=== PATIENT | male | born 1940 | race Caucasian/White ===

== ENCOUNTER 2018-07-24 21:30 | Emergency (ER) | payer MEDICARE, OTHER ==
--- NOTE | 2018-07-24 23:07 | ER Document Report ---
ED Medical Screen (RME) - General Chief Complaint: High Blood Sugar Stated Complaint: BLOOD SUGAR ISSUE Time Seen by Provider: 07/24/18 23:04 Mode of Arrival: Ambulatory Information source: Patient Notes: 77-year-old male presents to ED for elevated blood sugar. He is here with a friend that he is living with at this time. He is a diabetic but has been off of his medicines for years. She states she just got into the doctor about 2 weeks ago to getting back on his blood pressure sure diabetes and other medications. And said his sugars been running in the 600s at home his blood sugar was in the 300s in the emergency room Accu-Chek. Friend stated he eats pretty much what they cook and what he wants. Patient is alert and oriented respirations regular and unlabored speaking in full sentences lungs are clear at this time. I have greeted and performed a rapid initial assessment of this patient. A comprehensive ED assessment and evaluation of the patient, analysis of test results and completion of medical decision making process will be conducted by an additional ED providers. TRAVEL OUTSIDE OF THE [place] IN LAST 30 DAYS: No Past Medical History Endocrine Medical History: Reports: Hx Diabetes Mellitus Type 2 Renal/ Medical History: Denies: Hx Peritoneal Dialysis Physical Exam - Vital signs Vitals: Temp Pulse Resp BP Pulse Ox 97.3 F 73 18 123/54 L 95 07/24/18 21:39 07/24/18 21:39 07/24/18 21:39 07/24/18 21:39 07/24/18 21:39 Course - Vital Signs Vital signs: Temp Pulse Resp BP Pulse Ox 97.3 F 73 18 123/54 L 95 07/24/18 21:39 07/24/18 21:39 07/24/18 21:39 07/24/18 21:39 07/24/18 21:39 Doctor's Discharge - Discharge Referrals: LOYD ROSALES MD [Primary Care Provider] - Follow up as needed
[2018-07-24 23:59] LABS: ABSOLUTE BASOPHILS # (AUTO) 0.1 10^3/uL (0.0-0.2); ABSOLUTE EOSINOPHILS # (AUTO) 0.2 10^3/uL (0.0-0.6); ABSOLUTE LYMPHOCYTES (AUTO) 1.5 10^3/uL (0.5-4.7); ABSOLUTE MONOCYTES (AUTO) 0.6 10^3/uL (0.1-1.4); BASOPHILS % (AUTO) 0.6 % (0-2); EOSINOPHILS % (AUTO) 1.8 % (0-6); HEMATOCRIT 34.2 % (37.9-51.0); HEMOGLOBIN 11.8 g/dL (13.5-17.0); LYMPHOCYTES % (AUTO) 17.6 % (13-45); MEAN CORPUSCULAR HEMOGLOBIN 30.3 pg (27.0-33.4); MEAN CORPUSCULAR HGB CONC 34.6 g/dL (32.0-36.0); MEAN CORPUSCULAR VOLUME 88 fl (80-97); PLATELET COUNT 326 10^3/uL (150-450); RED CELL DISTRIBUTION WIDTH 13.4 % (11.5-14.0); TOTAL CELLS COUNTED % (AUTO) 100 %; WHITE BLOOD COUNT 8.3 10^3/uL (4.0-10.5)
[2018-07-25 00:06] LABS: VENOUS BLOOD BASE EXCESS 1.5 mmol/L; VENOUS BLOOD PCO2 54.4 mmHg (35-63); VENOUS BLOOD PH 7.35 (7.30-7.42)
[2018-07-25 00:15] LABS: APPEARANCE,URINE CLEAR; BILIRUBIN,URINE NEGATIVE (NEGATIVE); COLOR,URINE STRAW; GLUCOSE, URINE >=500 mg/dL (NEGATIVE); KETONES,URINE NEGATIVE (NEGATIVE); LEUKOCYTE ESTERASE,URINE NEGATIVE (NEGATIVE); NITRITE,URINE NEGATIVE (NEGATIVE); PROTEIN,URINE NEGATIVE (NEGATIVE); URINE SPECIFIC GRAVITY 1.005
[2018-07-25 00:18] LABS: ALANINE AMINOTRANSFERASE 25 U/L (21-72); ALKALINE PHOSPHATASE 79 U/L (38-126); ANION GAP 13 (5-19); ASPARTATE AMINO TRANSFERASE 28 U/L (17-59); BILIRUBIN,DIRECT 0.4 mg/dL (0.0-0.4); BILIRUBIN,TOTAL 0.6 mg/dL (0.2-1.3); BLOOD UREA NITROGEN 22 mg/dL (7-20); CALCIUM 9.3 mg/dL (8.4-10.2); CARBON DIOXIDE 28 mmol/L (22-30); CHLORIDE 98 mmol/L (98-107); GLUCOSE 260 mg/dL (75-110); POTASSIUM 4.6 mmol/L (3.6-5.0); SODIUM 139.3 mmol/L (137-145); TOTAL PROTEIN 7.4 g/dL (6.3-8.2)
[2018-07-25] MEDS ORDERED: NORMAL SALINE 1000 ML 500 ML IV ONE (00:53)
--- NOTE | 2018-07-25 00:59 | ER Document Report ---
ED Blood Sugar Problem - General Chief Complaint: High Blood Sugar Stated Complaint: BLOOD SUGAR ISSUE Time Seen by Provider: 07/24/18 23:04 Mode of Arrival: Ambulatory Notes: Patient is a 77-year-old male that comes emergency department for chief complaint of elevated blood sugar levels. He is here with his girlfriend. He states that he was diagnosed with diabetes, he has not been on diabetic medications since he got out of assisted 3 years ago, he states that he was seen within the past week by a primary care provider and he was placed on glipizide 5 mg daily. He has been taking this. He states that his girlfriend has been checking his sugars and today after eating a meal and a sugary dessert his blood glucose read 600s. He denies nausea or vomiting, dizziness, confusion, fever or chills. He denies chest pain, abdominal pain, or any current symptoms. Past medical history includes CAD, GERD, hypertension. He is on full medication regimen now with primary care. TRAVEL OUTSIDE OF THE [place] IN LAST 30 DAYS: No - Related Data Allergies/Adverse Reactions: No Known Allergies Allergy (Unverified 07/24/18 23:35) Past Medical History - General Information source: Patient - Social History Smoking Status: Never Smoker Frequency of alcohol use: None Drug Abuse: None Lives with: Alone Family History: Reviewed & Not Pertinent Patient has suicidal ideation: No Patient has homicidal ideation: No - Past Medical History Cardiac Medical History: Reports: Hx Coronary Artery Disease, Hx Hypercholesterolemia, Hx Hypertension Endocrine Medical History: Reports: Hx Diabetes Mellitus Type 2 Renal/ Medical History: Denies: Hx Peritoneal Dialysis GI Medical History: Reports: Hx Gastroesophageal Reflux Disease - Immunizations Immunizations up to date: Yes Hx Diphtheria, Pertussis, Tetanus Vaccination: Yes Review of Systems - Review of Systems Constitutional: No symptoms reported EENT: No symptoms reported Cardiovascular: No symptoms reported Respiratory: No symptoms reported Gastrointestinal: No symptoms reported Genitourinary: No symptoms reported Male Genitourinary: No symptoms reported Musculoskeletal: No symptoms reported Skin: No symptoms reported Hematologic/Lymphatic: No symptoms reported Neurological/Psychological: No symptoms reported Physical Exam - Vital signs Vitals: Temp Pulse Resp BP Pulse Ox 97.3 F 73 18 123/54 L 95 07/24/18 21:39 07/24/18 21:39 07/24/18 21:39 07/24/18 21:39 07/24/18 21:39 - Notes Notes: GENERAL: Alert, interacts well. No acute distress. HEAD: Normocephalic, atraumatic. EYES: Pupils equal, round, and reactive to light. Extraocular movements intact. ENT: Oral mucosa moist, tongue midline. Oropharynx unremarkable. Airway patent. Nares patent, no nasal septal hematoma, TM's intact. NECK: Full range of motion. Supple. Trachea midline. LUNGS: Clear to auscultation bilaterally, no wheezes, rales, or rhonchi. No respiratory distress. HEART: Regular rate and rhythm. No murmur ABDOMEN: Soft, non-tender. Non-distended. Bowel sounds present in all 4 quadrants. GENITOURINARY: Deferred EXTREMITIES: Moves all 4 extremities spontaneously. No edema, normal radial and dorsalis pedis pulses bilaterally. No cyanosis. BACK: no cervical, thoracic, lumbar midline tenderness. No saddle anesthesia, normal distal neurovascular exam. NEUROLOGICAL: Alert and oriented x3. Normal speech. [cranial nerves II through XII grossly intact]. PSYCH: Normal affect, normal mood. SKIN: Warm, dry, normal turgor. No rashes or lesions noted. Course - Re-evaluation Re-evalutation: CBC unremarkable, chemistry does not show low bicarbonate, shows normal anion gap, venous blood gas does not show acidosis, no ketones in the urine. Patient had been given 500 cc bolus of fluids. Glucose is only in the 200s. Patient with no symptoms on my evaluation. He is alert and well-appearing with a normal physical exam. I did review glucose trends from home, taking it once or twice a day for the past several days, most of the glucose measurements are in the 150s. He spiked into the 600s after eating sugary desserts but this came down nicely. This was the only abnormally high blood glucose record. As a result I feel he has fairly good control, he was only recently started on this, discussed diet, discussed follow-up. Patient will be discharged for follow-up. He declines cyanide case hardener consult, states he has a good situation and good friends with good support. Stable at time of discharge. - Vital Signs Vital signs: Temp Pulse Resp BP Pulse Ox 98.9 F 74 18 139/64 H 98 07/25/18 02:56 07/25/18 02:56 07/25/18 02:56 07/25/18 02:56 07/25/18 02:56 - Laboratory Result Diagrams: 07/24/18 23:47 07/24/18 23:47 Laboratory results interpreted by me: 07/24/18 07/24/18 07/24/18 22:58 23:47 23:47 RBC 3.90 L Hgb 11.8 L Hct 34.2 L BUN 22 H Creatinine 1.28 H Est GFR (Non-Af Amer) 55 L Glucose 260 H POC Glucose 304 H Urine Glucose (UA) Urine Urobilinogen 07/24/18 23:53 RBC Hgb Hct BUN Creatinine Est GFR (Non-Af Amer) Glucose POC Glucose Urine Glucose (UA) >=500 H Urine Urobilinogen 2.0 H Discharge - Discharge Clinical Impression: Hyperglycemia due to type 2 diabetes mellitus Qualifiers: Diabetes mellitus [facility] insulin use: with [facility] use Qualified Code(s): E11.65 - Type 2 diabetes mellitus with hyperglycemia Condition: Stable Disposition: HOME, SELF-CARE Additional Instructions: You have been evaluated and treated for elevated blood sugar levels. Fortunately today your laboratory workup does not show concerning acidosis or other concerning abnormalities. I recommend that you stay on your current dose of glipizide and avoid carbohydrates/sugary foods. Follow-up with your primary care provider. Return if you worsen including vomiting, dizziness, persistently high blood sugar levels, or any other concerning or worsening symptoms. Referrals: LOYD ROSALES MD [ACTIVE STAFF] - Follow up as needed
[2018-07-25 03:03] VITALS: BP 139/64
== END 2018-07-25 03:03 | disposition home or self-care (01) ==
LOC: ER 21:30
DX: E11.65 Type 2 diabetes mellitus with hyperglycemia (principal); I25.10 Atherosclerotic heart disease of native coronary artery without angina pectoris; E78.00 Pure hypercholesterolemia, unspecified; I10 Essential (primary) hypertension; Z79.84 Long term (current) use of oral hypoglycemic drugs
CPT/HCPCS: 99283; 96360; 36415; 82962; 85025; 80053; 81001; 82803; J7030

== ENCOUNTER 2018-08-09 11:14 | Observation (INO) | payer MEDICARE ==
[2018-08-09 11:34] LABS: ABSOLUTE BASOPHILS # (AUTO) 0.1 10^3/uL (0.0-0.2); ABSOLUTE EOSINOPHILS # (AUTO) 0.2 10^3/uL (0.0-0.6); ABSOLUTE LYMPHOCYTES (AUTO) 1.3 10^3/uL (0.5-4.7); ABSOLUTE MONOCYTES (AUTO) 0.6 10^3/uL (0.1-1.4); ABSOLUTE NEUT (AUTO) 6.2 10^3/uL (1.7-8.2); BASOPHILS % (AUTO) 0.6 % (0-2); EOSINOPHILS % (AUTO) 2.7 % (0-6); HEMATOCRIT 37.9 % (37.9-51.0); HEMOGLOBIN 13.1 g/dL (13.5-17.0); LYMPHOCYTES % (AUTO) 15.7 % (13-45); MEAN CORPUSCULAR HEMOGLOBIN 30.4 pg (27.0-33.4); MEAN CORPUSCULAR HGB CONC 34.5 g/dL (32.0-36.0); MEAN CORPUSCULAR VOLUME 88 fl (80-97); PLATELET COUNT 279 10^3/uL (150-450); RED CELL DISTRIBUTION WIDTH 14.4 % (11.5-14.0); TOTAL CELLS COUNTED % (AUTO) 100 %; WHITE BLOOD COUNT 8.3 10^3/uL (4.0-10.5)
--- NOTE | 2018-08-09 11:48 | ER Document Report ---
ED Syncope and Near Syncope - General Stated Complaint: WEAKNESS Time Seen by Provider: 08/09/18 11:42 Notes: Patient says that he was at the laundry washing close. He was sitting waiting for the close to dry and he began to feel sick to his stomach, nauseated but not vomiting he eased himself to the floor but did not lose consciousness at any time. He says he is a sja-qqxukcn-whifnhfma diabetic on glipizide and did not eat anything today. He was in a hurry and try to get too many things done and did not eat this morning. EMS was called to the scene and found him eating a sticky bun. Their blood sugar at the scene was 143. Patient says he had something like this happen once before about 3 or 4 years ago and he had abnormal potassium does not recall ever experiencing a hypoglycemic episode. Patient was incontinent of urine. There is no reported seizure activity. Patient denies any recent illness. Has not had any fever or chills or sweats. Denies abdominal pain. Denies chest pain. Denies shortness of breath. Patient had a routine visit with his internal medicine doctor, Dr. Karyn Mayfield , on Monday. Patient says he did not have any medications added or adjusted. PMH: NIDDM, coronary artery stents, high cholesterol, TRAVEL OUTSIDE OF THE [place] IN LAST 30 DAYS: No - Related Data Allergies/Adverse Reactions: No Known Allergies Allergy (Unverified 07/24/18 23:35) Past Medical History - Social History Smoking Status: Unknown if Ever Smoked Family History: Reviewed & Not Pertinent - Past Medical History Cardiac Medical History: Reports: Hx Coronary Artery Disease, Hx Hypercholesterolemia, Hx Hypertension Endocrine Medical History: Reports: Hx Diabetes Mellitus Type 2 GI Medical History: Reports: Hx Gastroesophageal Reflux Disease - Immunizations Immunizations up to date: Yes Hx Diphtheria, Pertussis, Tetanus Vaccination: Yes Review of Systems - Review of Systems Notes: REVIEW OF SYSTEMS: CONSTITUTIONAL : Denies fever. EENT: Denies eye, ear, nose or mouth or throat pain or other symptoms. CARDIOVASCULAR: Denies chest pain. RESPIRATORY: Denies cough, chest congestion, or shortness of breath. GASTROINTESTINAL: Denies abdominal pain or nausea, vomiting, or diarrhea. GENITOURINARY: Denies difficulty or painful urinating, urinary frequency, blood in urine. Incontinent of urine at the scene. MUSCULOSKELETAL: Denies back or neck pain. Denies joint pain or swelling. SKIN: Denies rash or skin lesions. NEUROLOGICAL: Denies LOC or altered mental status. Denies headache. Denies sensory loss or motor deficits. ALL OTHER SYSTEMS REVIEWED AND NEGATIVE. Physical Exam - Vital signs Vitals: Resp Pulse Ox 8 L 98 08/09/18 11:28 08/09/18 11:28 Interpretation: Normal, Bradycardic Notes: PHYSICAL EXAMINATION: GENERAL: Well-appearing, in no acute distress. Pressure slightly low heart rate in the 40s. HEAD: Atraumatic, normocephalic. EYES: Pupils equal round and reactive to light, extraocular movements intact. ENT: oropharynx clear without exudates. Moist mucous membranes. NECK: Normal range of motion, supple. No carotid bruits heard. LUNGS: Breath sounds clear and equal bilaterally. HEART: Regular rate and rhythm without murmurs. Heart rate mid 40s. ABDOMEN: Soft, nontender. No guarding or rebound. No masses. Good femoral pulses bilaterally. BACK: No tenderness throughout entire back. EXTREMITIES: Normal range of motion without pain. NEUROLOGICAL: Normal speech. Normal sensory, motor, and reflex exams. Awake, alert, and oriented x3. Cranial nerves normal. PSYCH: Normal mood, normal affect. SKIN: Warm, dry, no rashes. Course - Re-evaluation Re-evalutation: 08/09/18 13:35 Patient was given normal saline 1000 mL because of his slightly low blood pressure. His blood pressure came up to normal. His heart rate remained in the mid 40s, sinus mechanism. Patient is feeling somewhat better at this time. I spoken with the hospitalist who will admit the patient for further evaluation and observation. - Vital Signs Vital signs: Temp Pulse Resp BP Pulse Ox 11 L 109/49 L 97 08/09/18 12:01 08/09/18 12:01 08/09/18 12:01 - Laboratory Result Diagrams: 08/09/18 11:10 08/09/18 11:10 Laboratory results interpreted by me: 08/09/18 08/09/18 08/09/18 11:10 11:10 11:30 RBC 4.30 L Hgb 13.1 L RDW 14.4 H Glucose 178 H POC Glucose 181 H Critical Care Note - Critical Care Note Total time excluding time spent on procedures (mins): 40 Discharge - Discharge Clinical Impression: Near syncope, Sinus bradycardia, Urinary incontinence Disposition: ADMITTED OBSERVATION Admitting Provider: Hospitalist Unit Admitted: IMCU Referrals: KARYN MAYFIELD MD [Primary Care Provider] - Follow up as needed
[2018-08-09] MEDS ORDERED: NORMAL SALINE 1000 ML 1,000 ML IV ONE (11:51)
[2018-08-09 11:52] LABS: ALANINE AMINOTRANSFERASE 25 U/L (21-72); ALBUMIN 3.8 g/dL (3.5-5.0); ALKALINE PHOSPHATASE 84 U/L (38-126); ANION GAP 11 (5-19); ASPARTATE AMINO TRANSFERASE 28 U/L (17-59); BILIRUBIN,DIRECT 0.3 mg/dL (0.0-0.4); BLOOD UREA NITROGEN 19 mg/dL (7-20); CALCIUM 9.7 mg/dL (8.4-10.2); CARBON DIOXIDE 26 mmol/L (22-30); CHLORIDE 104 mmol/L (98-107); CREATINE KINASE 61 U/L (55-170); GLUCOSE 178 mg/dL (75-110); POTASSIUM 4.5 mmol/L (3.6-5.0); SODIUM 140.6 mmol/L (137-145); TOTAL PROTEIN 6.7 g/dL (6.3-8.2)
[2018-08-09 12:06] LABS: CREATINE KINASE MB 0.78 ng/mL (<4.55)
[2018-08-09 12:10] LABS: TROPONIN I < 0.012 ng/mL
[2018-08-09 12:15] LABS: APPEARANCE,URINE CLEAR; BILIRUBIN,URINE NEGATIVE (NEGATIVE); COLOR,URINE YELLOW; GLUCOSE, URINE NEGATIVE (NEGATIVE); KETONES,URINE NEGATIVE (NEGATIVE); LEUKOCYTE ESTERASE,URINE NEGATIVE (NEGATIVE); NITRITE,URINE NEGATIVE (NEGATIVE); PROTEIN,URINE NEGATIVE (NEGATIVE); UROBILINOGEN,URINE NEGATIVE mg/dL (<2.0)
--- NOTE | 2018-08-09 12:37 | RADIOLOGY REPORT (SQ) ---
EXAM DESCRIPTION: CT HEAD WITHOUT COMPLETED DATE/TIME: 08/09/2018 12:21 pm REASON FOR STUDY: Near syncope COMPARISON: None. TECHNIQUE: Axial images acquired through the brain without intravenous contrast. Images reviewed wi th bone, brain and subdural windows. Images stored on PACS. All CT scanners at this facility use dose modulation, iterative reconstruction, and/or weight based d osing when appropriate to reduce radiation dose to as low as reasonably achievable (ALARA). [facility]: Dose Right [facility]: CareDose [facility]: Dose Right [facility]: Teradose 4D [facility]: Measurabl RADIATION DOSE: CT Rad equipment meets quality standard of care and radiation dose reduction techniq ues were employed. CTDIvol: 48.5 mGy. DLP: 924 mGy-cm. mGy. LIMITATIONS: None. FINDINGS: VENTRICLES: Prominent. CEREBRUM: No masses. No hemorrhage. No midline shift. Areas of low density in the white matter mos t likely due to chronic micro-vascular ischemic change. No evidence for acute infarction. CEREBELLUM: No masses. No hemorrhage. No alteration of density. No evidence for acute infarction. EXTRAAXIAL SPACES: Mild age-related involutional change. No fluid collections. No masses. ORBITS AND GLOBE: No intra- or extraconal masses. Normal contour of globe without masses. CALVARIUM: No fracture. PARANASAL SINUSES: No fluid or mucosal thickening. SOFT TISSUES: No mass or hematoma. OTHER: No other significant finding. IMPRESSION: MILD CHRONIC CHANGES OF ATROPHY AND MICROVASCULAR ISCHEMIA. NO ACUTE PROCESS. EVIDENCE OF ACUTE STROKE: NO. TECHNICAL DOCUMENTATION: JOB ID: [id number] Quality ID # [id number]: Final reports with documentation of one or more dose reduction techniques (e.g., Au tomated exposure control, adjustment of the mA and/or kV according to patient size, use of iterative reconstruction technique) 2010 [employer]- All Rights Reserved Reading location - IP/workstation name: [email or web address]
[2018-08-09] MEDS ORDERED: ACETAMINOPHEN 325 MG TABLET PO PRN (13:43)
[2018-08-09] MEDS ORDERED: DEXTROSE 50%-WATER 25 GM/50 ML DISP.SYRIN IV PRN ×2 (13:50)
[2018-08-09] MEDS ORDERED: DEXTROSE 40% GEL 15 GM TUBE PO PRN ×2 (13:50)
[2018-08-09] MEDS ORDERED: GLUCAGON,HUMAN RECOMB 1 MG INJ IM PRN (13:50)
[2018-08-09] MEDS ORDERED: ENOXAPARIN SODIUM INJ 40 MG/0.4 ML DISP.SYRIN SUBCUT ONE (15:00)
[2018-08-09] MEDS: INSULIN LISPRO 100 UNIT/ML 3 ML VIAL SUBCUT PRN ×2 (16:57→22:52)
--- NOTE | 2018-08-09 16:57 | PDOC H&P ---
History of Present Illness Admission Date/PCP: 08/09/18 14:00 KARYN LEIJA MD Patient complains of: "I feel like I passed out" History of Present Illness: AKILAH GODFREY is a 77 year old male with a past medical history of coronary artery disease and diabetes mellitus type II. According to the patient , he was at the laundry washing clothes. While waiting for the close to dry he began to feel sick to his stomach, nauseated but not vomiting and eased himself to the floor but did not lose consciousness at any time. The patient says he is a amh-xfbwvgf-mzpyiecod diabetic on glipizide and had not eat anything today. The patient was in a hurry and tried to get too many things done and did not eat this morning. EMS was called to the scene and found him eating a sticky bun. Their blood sugar at the scene was 143. Patient says he had something like this happen once before about 3 or 4 years ago and he had abnormal potassium does not recall ever experiencing a hypoglycemic episode. Patient was incontinent of urine. There is no reported seizure activity. Patient denies any recent illness. Has not had any fever or chills or sweats. Denies abdominal pain. Denies chest pain. Denies shortness of breath. Patient had a routine visit with his internal medicine doctor, Dr. Karyn Leija , on Monday. Patient says he did not have any medications added or adjusted. 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 Lives with: Spouse/Significant other Smoking Status: Former Smoker - Stopped in 1976 Frequency of Alcohol Use: None Hx Recreational Drug Use: No Hx Prescription Drug Abuse: No - Advance Directive Resuscitation Status: Full Code Surrogate healthcare decision maker:: Daughter Family History Family History: CAD, Malignancy Parental Family History Reviewed: Yes - Mother of coronary disease, father of alcoholism Children Family History Reviewed: Yes Sibling(s) Family History Reviewed.: Yes - Sister with bladder cancer Medication/Allergy Home Medications: Aspirin [Adult Aspirin] 81 mg PO DAILY 08/09/18 Carvedilol [Coreg 6.25 mg Tablet] 6.25 mg PO Q12 08/09/18 Furosemide [Lasix 20 mg Tablet] 20 mg PO QAM 08/09/18 Glipizide [Glucotrol Xl 5 mg Tab.er] 5 mg PO QAM 08/09/18 Isosorbide Mononitrate [Imdur 30 mg Tablet.er] 30 mg PO DAILY 08/09/18 Multivitamin [Daily Multiple Vitamin] 1 each PO DAILY 08/09/18 Omeprazole 20 mg PO DAILY 08/09/18 Pravastatin Sodium [Pravachol] 20 mg PO QHS 08/09/18 Allergies/Adverse Reactions: No Known Allergies Allergy (Unverified 07/24/18 23:35) Review of Systems Constitutional: PRESENT: weakness. ABSENT: chills, fever(s), headache(s), weight gain, weight loss Eyes: ABSENT: visual disturbances Ears: ABSENT: hearing changes Cardiovascular: ABSENT: chest pain, dyspnea on exertion, edema, orthropnea, palpitations Respiratory: ABSENT: cough, hemoptysis Gastrointestinal: ABSENT: abdominal pain, constipation, diarrhea, hematemesis, hematochezia, nausea, vomiting Genitourinary: ABSENT: dysuria, hematuria Musculoskeletal: ABSENT: joint swelling Integumentary: ABSENT: rash, wounds Neurological: ABSENT: abnormal gait, abnormal speech, confusion, dizziness, focal weakness, syncope Psychiatric: ABSENT: anxiety, depression, homidical ideation, suicidal ideation Endocrine: ABSENT: cold intolerance, heat intolerance, polydipsia, polyuria Hematologic/Lymphatic: ABSENT: easy bleeding, easy bruising Physical Exam Vital Signs: Temp Pulse Resp BP Pulse Ox 11 L 109/49 L 97 08/09/18 12:01 08/09/18 12:01 08/09/18 12:01 Selected Entries 08/09/18 12:01 Heart Rate ( 48 Monitors) Respiratory 11 L Rate Blood Pressure 109/49 L O2 Sat by Pulse 97 Oximetry General appearance: PRESENT: no acute distress, well-developed, well-nourished Head exam: PRESENT: atraumatic, normocephalic Eye exam: PRESENT: conjunctiva pink, EOMI, PERRLA. ABSENT: scleral icterus Ear exam: PRESENT: normal external ear exam Mouth exam: PRESENT: moist, tongue midline Neck exam: ABSENT: carotid bruit, JVD, lymphadenopathy, thyromegaly Respiratory exam: PRESENT: clear to auscultation darian. ABSENT: rales, rhonchi, wheezes Cardiovascular exam: PRESENT: bradycardia. ABSENT: diastolic murmur, rubs, systolic murmur Pulses: PRESENT: normal dorsalis pedis pul Vascular exam: PRESENT: normal capillary refill GI/Abdominal exam: PRESENT: normal bowel sounds, soft. ABSENT: distended, guarding, mass, organolmegaly, rebound, tenderness Rectal exam: PRESENT: deferred Extremities exam: PRESENT: full ROM. ABSENT: calf tenderness, clubbing, pedal edema Neurological exam: PRESENT: alert, awake, oriented to person, oriented to place , oriented to time, oriented to situation, CN II-XII grossly intact. ABSENT: motor sensory deficit Psychiatric exam: PRESENT: appropriate affect, normal mood. ABSENT: homicidal ideation, suicidal ideation Skin exam: PRESENT: dry, intact, warm. ABSENT: cyanosis, rash Results Laboratory Results: Labs- Last Values WBC 8.3 10^3/uL (4.0-10.5) 08/09/18 11:10 RBC 4.30 10^6/uL (4.35-5.55) L 08/09/18 11:10 Hgb 13.1 g/dL (13.5-17.0) L 08/09/18 11:10 Hct 37.9 % (37.9-51.0) 08/09/18 11:10 MCV 88 fl (80-97) 08/09/18 11:10 MCH 30.4 pg (27.0-33.4) 08/09/18 11:10 MCHC 34.5 g/dL (32.0-36.0) 08/09/18 11:10 RDW 14.4 % (11.5-14.0) H 08/09/18 11:10 Plt Count 279 10^3/uL (150-450) 08/09/18 11:10 Seg Neutrophils % 74.0 % (42-78) 08/09/18 11:10 Lymphocytes % 15.7 % (13-45) 08/09/18 11:10 Monocytes % 7.0 % (3-13) 08/09/18 11:10 Eosinophils % 2.7 % (0-6) 08/09/18 11:10 Basophils % 0.6 % (0-2) 08/09/18 11:10 Absolute Neutrophils 6.2 10^3/uL (1.7-8.2) 08/09/18 11:10 Absolute Lymphocytes 1.3 10^3/uL (0.5-4.7) 08/09/18 11:10 Absolute Monocytes 0.6 10^3/uL (0.1-1.4) 08/09/18 11:10 Absolute Eosinophils 0.2 10^3/uL (0.0-0.6) 08/09/18 11:10 Absolute Basophils 0.1 10^3/uL (0.0-0.2) 08/09/18 11:10 Sodium 140.6 mmol/L (137-145) 08/09/18 11:10 Potassium 4.5 mmol/L (3.6-5.0) 08/09/18 11:10 Chloride 104 mmol/L (98-107) 08/09/18 11:10 Carbon Dioxide 26 mmol/L (22-30) 08/09/18 11:10 Anion Gap 11 (5-19) 08/09/18 11:10 BUN 19 mg/dL (7-20) 08/09/18 11:10 Creatinine 0.98 mg/dL (0.52-1.25) 08/09/18 11:10 Est GFR ( Amer) > 60 (>60) 08/09/18 11:10 Est GFR (Non-Af Amer) > 60 (>60) 08/09/18 11:10 Glucose 178 mg/dL (75-110) H 08/09/18 11:10 POC Glucose 181 mg/dL (70-110) H 08/09/18 11:30 Calcium 9.7 mg/dL (8.4-10.2) 08/09/18 11:10 Total Bilirubin 1.0 mg/dL (0.2-1.3) 08/09/18 11:10 Direct Bilirubin 0.3 mg/dL (0.0-0.4) 08/09/18 11:10 Neonat Total Bilirubin Not Reportable 08/09/18 11:10 Neonat Direct Bilirubin Not Reportable 08/09/18 11:10 Neonat Indirect Bili Not Reportable 08/09/18 11:10 AST 28 U/L (17-59) 08/09/18 11:10 ALT 25 U/L (21-72) 08/09/18 11:10 Alkaline Phosphatase 84 U/L (38-126) 08/09/18 11:10 Creatine Kinase 61 U/L (55-170) 08/09/18 11:10 CK-MB (CK-2) 0.78 ng/mL (<4.55) 08/09/18 11:10 Troponin I < 0.012 ng/mL 08/09/18 11:10 Total Protein 6.7 g/dL (6.3-8.2) 08/09/18 11:10 Albumin 3.8 g/dL (3.5-5.0) 08/09/18 11:10 Urine Color YELLOW 08/09/18 11:41 Urine Appearance CLEAR 08/09/18 11:41 Urine pH 5.0 (5.0-9.0) 08/09/18 11:41 Ur Specific [place] 1.010 08/09/18 11:41 Urine Protein NEGATIVE mg/dL (NEGATIVE) 08/09/18 11:41 Urine Glucose (UA) NEGATIVE mg/dL (NEGATIVE) 08/09/18 11:41 Urine Ketones NEGATIVE mg/dL (NEGATIVE) 08/09/18 11:41 Urine Blood NEGATIVE (NEGATIVE) 08/09/18 11:41 Urine Nitrite NEGATIVE (NEGATIVE) 08/09/18 11:41 Urine Bilirubin NEGATIVE (NEGATIVE) 08/09/18 11:41 Urine Urobilinogen NEGATIVE mg/dL (<2.0) 08/09/18 11:41 Ur Leukocyte Esterase NEGATIVE (NEGATIVE) 08/09/18 11:41 Urine WBC (Auto) 1 /HPF 08/09/18 11:41 Urine RBC (Auto) 4 /HPF 08/09/18 11:41 U Hyaline Cast (Auto) 20 /LPF 08/09/18 11:41 Squamous Epi Cells Auto 1 /HPF 08/09/18 11:41 Urine Mucus (Auto) RARE /LPF 08/09/18 11:41 Urine Ascorbic Acid NEGATIVE (NEGATIVE) 08/09/18 11:41 Impressions: Head CT 08/09/18 11:52 IMPRESSION: MILD CHRONIC CHANGES OF ATROPHY AND MICROVASCULAR ISCHEMIA. NO ACUTE PROCESS. EVIDENCE OF ACUTE STROKE: NO. Assessment & Plan - Diagnosis (1) Sinus bradycardia Is this a current diagnosis for this admission?: Yes Plan: Hold the patient's beta-dl. Monitor overnight. (2) Diabetes mellitus type 2 in nonobese Is this a current diagnosis for this admission?: Yes Plan: The patient's glimepiride. Will obtain A1c. Add sliding scale coverage throughout the night. (3) Coronary artery disease Qualifiers: Coronary Disease-Associated Artery/Lesion type: [place] artery [place] vs. transplanted heart: [place] heart Associated angina: without angina Qualified Code(s): I25.10 - Atherosclerotic heart disease of [place] coronary artery without angina pectoris Is this a current diagnosis for this admission?: Yes Plan: Denies any anginal type symptoms at this time. Continue statins and aspirin. - Time Time Spent: 50 to 70 Minutes Medications reviewed and adjusted accordingly: Yes Anticipated discharge: Home Within: within 24 hours
--- NOTE | 2018-08-09 21:29 | EKG REPORT ---
SEVERITY:- OTHERWISE NORMAL ECG - SINUS BRADYCARDIA VENTRICULAR PREMATURE COMPLEX : Confirmed by: Terrie Ellis MD 09-Aug-2018 21:29:37
--- NOTE | 2018-08-09 21:31 | EKG REPORT ---
SEVERITY:- OTHERWISE NORMAL ECG - SINUS BRADYCARDIA : Confirmed by: Terrie Ellis MD 09-Aug-2018 21:29:41
[2018-08-09] MEDS ORDERED: ATORVASTATIN CALCIUM 10 MG TABLET PO SCH (22:00)
[2018-08-10 09:26] VITALS: BP 110/52
[2018-08-10] MEDS ORDERED: CARVEDILOL 6.25 MG TABLET PO SCH (10:00)
[2018-08-10] MEDS ORDERED: ASPIRIN 81 MG TABLET, ENT COATED PO SCH (10:00)
[2018-08-10] MEDS ORDERED: ENOXAPARIN SODIUM INJ 40 MG/0.4 ML DISP.SYRIN SUBCUT SCH (10:00)
[2018-08-10] MEDS ORDERED: MULTIVITAMIN TABLET PO SCH (10:00)
[2018-08-10] MEDS ORDERED: CARVEDILOL 3.125 MG TABLET PO SCH (10:00)
[2018-08-10] MEDS ORDERED: LANSOPRAZOLE 15 MG TAB.RAP.DR PO SCH (10:00)
--- NOTE | 2018-08-11 15:42 | DISCHARGE SUMMARY E ---
Discharge Summary NAME: AKILAH GODFREY : 1940 AGE: 77Y ADMITTED: 08/09/2018 DISCHARGED: 08/10/2018 DISCHARGE DIAGNOSES INCLUDES: 1. Symptomatic bradycardia. 2. Diabetes mellitus type 2. 3. Coronary artery disease. CODE STATUS: FULL CODE. PRIMARY CARE PROVIDER: Tay Mayfield MD DISCHARGE MEDICATIONS INCLUDE: 1. Reduced Coreg 3.125 mg p.o. q.12 hours, 60 tablets, 0 refills. 2. Aspirin 81 mg p.o. daily. 3. Lasix 20 mg p.o. q. a.m. 4. Glucotrol XL 5 mg p.o. q. a.m. 5. Imdur 30 mg p.o. daily. 6. Multivitamin 1 tablet p.o. daily. 7. Omeprazole 20 mg p.o. daily. 8. Pravachol 20 mg p.o. at bedtime. DIET: Heart-healthy. ACTIVITY: As tolerated. CONDITION: Good. DIAGNOSTICS: Lab values are as follows: Hematology obtained on 08/09/2018: WBCs are 8.3, hemoglobin 31, hematocrit is 37.9, platelet count is 379,000. Chemistry obtained on 08/09/2018: Sodium is 140, potassium 4.5, chloride is 104, carbon dioxide 26, BUN 19, creatinine 0.98, glucose 178. A1c is 6.9, calcium is 9.7, magnesium is 1.8. Total bilirubin 0.1, AST 28, ALT is 25, alk phos 84. CK 61, CK MB is 0.78. Troponin 0.012. Total protein is 6.7, albumin 3.8. Color yellow, appearance clear, pH is 5.0, specific gravity is 1.010. negative, nitrite negative, bilirubin negative, urobilinogen negative, leukocyte esterase is negative, WBCs 1. Head CT obtained on 08/20/2018 reveals mild chronic changes of atrophy and microvascular ischemia. No acute process. PHYSICAL EXAMINATION: GENERAL: On examination, the patient is a well-developed, well-nourished 77-year-old male, who is awake, alert and oriented to person, place, time and situation. He is verbal and conversational. Does not appear to be in any acute distress. VITAL SIGNS: Temperature is 97.4, pulse 73, respirations 19, blood pressure is 110/52, oxygen saturation 98% on room air. SKIN: Warm and dry. No rash, not diaphoretic. HEENT: Pupils equal, round, reactive to light and accommodation. Conjunctivae pink. No evidence of JVP. CVS: Heart is regular, with no murmur or rub. CHEST: Clear, symmetrical, unlabored. ABDOMEN: Soft, nontender. BACK: No tenderness or sacral edema. EXTREMITIES: No clubbing, cyanosis or edema. PSYCHIATRIC: Appropriate affect, pleasant mood. HISTORY OF PRESENT ILLNESS: The patient is a 77-year-old male with a past medical history of coronary artery disease. The patient presented to the emergency department with a chief complaint of feeling like he nearly passed out. According to the patient, he was washing his laundry and began to feel sick to his stomach. The patient was nauseated, but did not vomit. The patient stated he felt very lightheaded and eased himself to the floor, but did not have any loss of consciousness. The patient is a [id number]-ospbmchrm diabetic on glipizide, but had not eaten anything. The patient was in a hurry and tried to get too many things done this morning. The patient stated that he ate a sticky bun, but did not have any significant primitive symptoms. His blood sugar on the scene was 143. The patient stated that something like this happened 3 to 4 years ago and he had an abnormal potassium at that time. The patient stated that he has had a recent reduction in his cardiac medications as well. The patient denied any seizure-like activity. The patient was referred to the hospitalist for admission and management. HOSPITAL COURSE: The patient was observed on continuous telemetry. Serial orthostatic blood pressures were obtained, which were stable. The patient's chemistries were in appropriate range. The patient's troponin was unremarkable. The patient's beta dl was held and his heart rate improved nicely to the 80s. The patient was persistently in the 40s while in the emergency department. The patient's beta dl dose was cut in half. The patient has had complete symptom resolution. The patient's blood glucoses have been monitored and of the lowest, it was 112. The patient's A1c was found to be 6.9 and the patient is quite eager for discharge. DISCHARGE PLAN: The patient is advised to follow up with his primary care provider within 1 to 2 weeks for hospital followup. Time spent on this discharge, including assessment, plan, physical examination, patient education and review of records, is 25 minutes. DICTATING PHYSICIAN: LAMONT CHRISTIANSON NP [id number] PHY#: [id number] ID: [id number] JOB#: [id number] ACCT: [id number] cc:Basim GORE NP > MTDD
== END 2018-08-10 11:50 | disposition home or self-care (01) ==
LOC: ER 11:14 → EH 14:00 → 3S 15:29
PROVIDERS: ADMIT Family Medicine; ATTEND Family Medicine
DX: R00.1 Bradycardia, unspecified (principal); E11.9 Type 2 diabetes mellitus without complications; I25.10 Atherosclerotic heart disease of native coronary artery without angina pectoris; R11.0 Nausea; R32 Unspecified urinary incontinence; R53.1 Weakness; R55 Syncope and collapse; E78.00 Pure hypercholesterolemia, unspecified; K21.9 Gastro-esophageal reflux disease without esophagitis; Z79.84 Long term (current) use of oral hypoglycemic drugs; Z95.5 Presence of coronary angioplasty implant and graft; Z87.891 Personal history of nicotine dependence; Z82.49 Family history of ischemic heart disease and other diseases of the circulatory system; Z80.52 Family history of malignant neoplasm of bladder; Z79.82 Long term (current) use of aspirin; Z79.899 Other long term (current) drug therapy
CPT/HCPCS: 93005; 99291; 96360; 36415; 82553; 82962 ×2; 82550; 83735; 85025; 80053; 81001; 84484; 83036; 70450; 93010; A9270 ×5; J1650; J3490; J7030; J1815

== ENCOUNTER 2018-08-17 06:57 | Emergency (ER) | payer MEDICARE ==
--- NOTE | 2018-08-17 07:18 | ER Document Report ---
ED General - General Stated Complaint: NAUSEA Time Seen by Provider: 08/17/18 07:02 Mode of Arrival: Medic Information source: Patient, Relative, Emergency Med Personnel TRAVEL OUTSIDE OF THE [place] IN LAST 30 DAYS: No - HPI Patient complains to provider of: Nausea diarrhea Onset: Other - 77-year-old male with a history of hypertension that presents for evaluation of an episode today in which he became very weak and had difficulty getting up off the toilet, he notes that he is been feeling unwell for some days and yesterday was barely taking anything by mouth today he began to have nausea as well as diarrhea while sitting on the toilet. Nothing seems to make it any better, nothing seems to make it worse. He notes that his legs felt very numb trying to get up off the toilet and he was unable to. He was able to then with assistance get up. Is never really had anything like this in the past, nothing is seem to make it any better or worse. Did not take anything to try and help with this. Has been trying to take small volumes of fluids since yesterday without much appetite. Specifically he denies any lightheadedness, focal numbness or weakness, chest pain, shortness of breath, chest tightness, recent trauma or falls, abdominal pain, constipation or dysuria no rashes or fevers. - Related Data Allergies/Adverse Reactions: No Known Allergies Allergy (Unverified 07/24/18 23:35) Past Medical History - General Information source: Patient, Relative, Emergency Med Personnel - Social History Smoking Status: Unknown if Ever Smoked Family History: CAD, Malignancy - Past Medical History Cardiac Medical History: Reports: Hx Coronary Artery Disease, Hx Hypercholesterolemia, Hx Hypertension Endocrine Medical History: Reports: Hx Diabetes Mellitus Type 2 Renal/ Medical History: Denies: Hx Peritoneal Dialysis GI Medical History: Reports: Hx Gastroesophageal Reflux Disease Psychiatric Medical History: Denies: Hx Depression Past Surgical History: Reports: Hx Coronary Stent - Immunizations Immunizations up to date: Yes Hx Diphtheria, Pertussis, Tetanus Vaccination: Yes Review of Systems - Review of Systems -: Yes All other systems reviewed and negative Physical Exam - Vital signs Vitals: Temp Pulse Resp BP Pulse Ox 97.6 F 84 18 116/50 L 99 08/17/18 06:57 08/17/18 06:57 08/17/18 06:57 08/17/18 06:57 08/17/18 06:57 Interpretation: Normal - General General appearance: Appears well, Alert - HEENT Head: Normocephalic, Atraumatic Eyes: Normal Pupils: PERRL - Respiratory Respiratory status: No respiratory distress Chest status: Nontender Breath sounds: Normal Chest palpation: Normal - Cardiovascular Rhythm: Regular Heart sounds: Normal auscultation Murmur: No - Abdominal Inspection: Normal Distension: No distension Bowel sounds: Normal Tenderness: Nontender Organomegaly: No organomegaly - Back Back: Normal, Nontender - Extremities General upper extremity: Normal inspection, Nontender, Normal color, Normal ROM, Normal temperature General lower extremity: Normal inspection, Nontender, Normal color, Normal ROM, Normal temperature, Normal weight bearing. No: Bhumika's sign - Neurological Neuro grossly intact: Yes Cognition: Normal Orientation: AAOx4 [place] Coma Scale Eye Opening: Spontaneous Tea Coma Scale Verbal: Oriented Tea Coma Scale Motor: Obeys Commands [place] Coma Scale Total: 15 Speech: Normal Motor strength normal: LUE, RUE, LLE, RLE Sensory: Normal - Psychological Associated symptoms: Normal affect, Normal mood - Skin Skin Temperature: Warm Skin Moisture: Dry Skin Color: Normal Course - Re-evaluation Re-evalutation: 77-year-old man with nondescript symptoms including weakness nausea and diarrhea. He is overall well-appearing, he has normal blood pressure as well as a normal heart rate he has a benign abdominal examination. He does have nausea and does have diarrhea. Does not have any recent antibiotic use or other issue. We will plan for a broad workup because of the fatigue he felt and attempted to get off the toilet this morning we will plan for a EKG. We will obtain a CMP with a lipase and CBC as well as a chest x-ray. Do not believe that this patient requires imaging of the abdomen and pelvis at this time as he has a benign abdominal examination with nondescript loose bowel movements. 08/17/18 08:17 Patient with an elevated BUN/creatinine. Likely this patient has dehydration as a result of his illness, is also identified as having hypocalcemia. This may account for some of the paresthesias which she is suffering. We will plan to administer calcium. We will plan to administer 1 L of lactated Ringer's in addition to the liter of normal saline he is already received. The patient is resting comfortable at this time, he has a persistently benign abdominal examination. Has not had any episodes while in the emergency department. - Vital Signs Vital signs: Temp Pulse Resp BP Pulse Ox 97.4 F 84 9 L 101/57 L 99 08/17/18 11:28 08/17/18 06:57 08/17/18 11:23 08/17/18 11:24 08/17/18 11:24 - Laboratory Result Diagrams: 08/17/18 07:10 08/17/18 07:10 Laboratory results interpreted by me: 08/17/18 08/17/18 07:10 07:10 RBC 3.90 L Hgb 12.0 L Hct 34.8 L RDW 14.4 H BUN 28 H Calcium 7.5 L Total Protein 4.9 L Albumin 2.6 L Discharge - Discharge Clinical Impression: Nausea, Weakness Diarrhea Qualifiers: Diarrhea type: unspecified type Qualified Code(s): R19.7 - Diarrhea, unspecified Fatigue Qualifiers: Fatigue type: unspecified Qualified Code(s): R53.83 - Other fatigue Condition: Stable Disposition: HOME, SELF-CARE Instructions: Acetaminophen, Antinausea Medication ([facility]), Diarrhea, Nonspecific ([facility]) Additional Instructions: Your seen today in the emergency department for your nausea as well as your diarrhea. You had an evaluation including blood tests and a physical exam. It appears that you have a low calcium. I believe your low calcium is probably a result of your illness. You were given fluids in the emergency department as well as calcium. Use the nausea medication prescribed to you to make sure that you are able to eat and drink appropriately. Make sure you are drinking fluids. Return for worsening fevers, chills, inability to eat or drink or other worsening symptoms. Prescriptions: Ondansetron [Zofran Odt 4 mg Tablet] 1 - 2 tab PO Q4H PRN #20 tab.rapdis PRN Reason: For Nausea/Vomiting Referrals: AKRYN LEIJA MD [Primary Care Provider] - Follow up as needed
[2018-08-17 07:34] LABS: ABSOLUTE EOSINOPHILS # (AUTO) 0.1 10^3/uL (0.0-0.6); ABSOLUTE LYMPHOCYTES (AUTO) 0.8 10^3/uL (0.5-4.7); ABSOLUTE MONOCYTES (AUTO) 0.7 10^3/uL (0.1-1.4); ABSOLUTE NEUT (AUTO) 4.7 10^3/uL (1.7-8.2); BASOPHILS % (AUTO) 0.3 % (0-2); HEMATOCRIT 34.8 % (37.9-51.0); MEAN CORPUSCULAR HEMOGLOBIN 30.7 pg (27.0-33.4); MEAN CORPUSCULAR HGB CONC 34.4 g/dL (32.0-36.0); MEAN CORPUSCULAR VOLUME 89 fl (80-97); MONOCYTES % (AUTO) 11.5 % (3-13); PLATELET COUNT 181 10^3/uL (150-450); RED CELL DISTRIBUTION WIDTH 14.4 % (11.5-14.0); SEGMENTED NEUTROPHILS % (AUTO) 73.2 % (42-78); TOTAL CELLS COUNTED % (AUTO) 100 %; WHITE BLOOD COUNT 6.4 10^3/uL (4.0-10.5)
--- NOTE | 2018-08-17 07:50 | RADIOLOGY REPORT (SQ) ---
EXAM DESCRIPTION: XR CHEST 1 VIEW COMPLETED DATE/TME: 08/17/2018 07:12 CLINICAL HISTORY: 77 years Male, cough, fatigue COMPARISON: None. NUMBER OF VIEWS/TECHNIQUE: 1/AP FINDINGS: Adequate lung volume, clear parenchyma, normal cardiac silhouette, lower cervical hardware, left axillary clips, and intact bony thorax. IMPRESSION: No acute cardiopulmonary findings.
[2018-08-17 07:53] LABS: ALANINE AMINOTRANSFERASE 24 U/L (21-72); ALBUMIN 2.6 g/dL (3.5-5.0); ALKALINE PHOSPHATASE 74 U/L (38-126); ANION GAP 7 (5-19); ASPARTATE AMINO TRANSFERASE 26 U/L (17-59); BILIRUBIN,DIRECT 0.3 mg/dL (0.0-0.4); BILIRUBIN,TOTAL 0.7 mg/dL (0.2-1.3); BLOOD UREA NITROGEN 28 mg/dL (7-20); CALCIUM 7.5 mg/dL (8.4-10.2); CARBON DIOXIDE 26 mmol/L (22-30); CHLORIDE 105 mmol/L (98-107); GLUCOSE 88 mg/dL (75-110); LIPASE 24.7 U/L (23-300); POTASSIUM 4.1 mmol/L (3.6-5.0); SODIUM 137.8 mmol/L (137-145); TOTAL PROTEIN 4.9 g/dL (6.3-8.2)
[2018-08-17] MEDS ORDERED: CALCIUM GLUCONATE 1000 MG/10 ML INJ IV ONE (08:07)
[2018-08-17] MEDS ORDERED: RINGERS SOLUTION,LACTATED 1,000 ML IV ONE (08:07)
[2018-08-17 11:28] VITALS: BP 101/57
--- NOTE | 2018-08-17 13:15 | EKG REPORT ---
SEVERITY:- OTHERWISE NORMAL ECG - SINUS RHYTHM LOW VOLTAGE IN FRONTAL LEADS : Confirmed by: Saravanan Davis MD 17-Aug-2018 13:14:57
== END 2018-08-17 11:34 | disposition home or self-care (01) ==
LOC: ER 06:57
DX: R11.0 Nausea (principal); R53.1 Weakness; R53.83 Other fatigue; R19.7 Diarrhea, unspecified; I10 Essential (primary) hypertension; E11.9 Type 2 diabetes mellitus without complications; E78.00 Pure hypercholesterolemia, unspecified
CPT/HCPCS: 93005; 99284; 96361; 96374; 36415; 83605; 83690; 85025; 80053; 71045; 93010; J0610; J7120

== ENCOUNTER 2019-03-03 02:58 | Observation (INO) | payer MEDICARE ==
[2019-03-03] MEDS ORDERED: NORMAL SALINE 1000 ML 1,000 ML IV ONE ×2 (03:40→11:23)
[2019-03-03] MEDS ORDERED: MORPHINE SULFATE 10 MG/ML INJ IV ONE (03:40)
[2019-03-03] MEDS ORDERED: ONDANSETRON HCL INJ/PF 4 MG/2 ML SDV IV ONE (03:40)
--- NOTE | 2019-03-03 03:43 | ER Document Report ---
ED GI/ - General TRAVEL OUTSIDE OF THE [place] IN LAST 30 DAYS: No <RAFAT ADAMS - Last Filed: 03/03/19 08:57> <KOLTONGILBERTO BELLO - Last Filed: 03/03/19 12:19> - General Chief Complaint: Abdominal Pain Stated Complaint: GASTRIC PAIN Time Seen by Provider: 03/03/19 03:15 Primary Care Provider: KARYN LEIJA MD [Primary Care Provider] - Follow up as needed Notes: Patient is a 78-year-old male that comes to the emergency department for chief complaint of mid to upper abdominal pain and nausea. He states that he had a straining bowel movement almost 2 days ago and ever since then he has not been able to get rid of the abdominal pain and feeling like something is not right. He denies chest pain, he states it hurts up in his upper abdomen, he points to the epigastric area. He denies shortness of breath, fever, vomiting. He denies any abdominal surgeries. Past medical history includes CAD with stent, hypertension, hyperlipidemia, type 2 diabetes. (RAFAT ADAMS) - Related Data Allergies/Adverse Reactions: No Known Allergies Allergy (Verified 03/03/19 04:09) Past Medical History - General Information source: Patient - Social History Smoking Status: Former Smoker Chew tobacco use (# tins/day): No Frequency of alcohol use: None Drug Abuse: None Lives with: Family Family History: CAD, Malignancy Patient has suicidal ideation: No Patient has homicidal ideation: No - Past Medical History Cardiac Medical History: Reports: Hx Coronary Artery Disease, Hx Hypercholesterolemia, Hx Hypertension Endocrine Medical History: Reports: Hx Diabetes Mellitus Type 2 Renal/ Medical History: Denies: Hx Peritoneal Dialysis GI Medical History: Reports: Hx Gastroesophageal Reflux Disease Psychiatric Medical History: Denies: Hx Depression Past Surgical History: Reports: Hx Cardiac Surgery - one stent, Hx Coronary Stent - Immunizations Immunizations up to date: Yes Hx Diphtheria, Pertussis, Tetanus Vaccination: Yes <RAFAT ADAMS - Last Filed: 03/03/19 08:57> Review of Systems - Review of Systems Constitutional: No symptoms reported EENT: No symptoms reported Cardiovascular: No symptoms reported Respiratory: No symptoms reported Gastrointestinal: See HPI Genitourinary: No symptoms reported Male Genitourinary: No symptoms reported Musculoskeletal: No symptoms reported Skin: No symptoms reported Hematologic/Lymphatic: No symptoms reported Neurological/Psychological: No symptoms reported <CHAPARRITAVANESA GERARDOAN - Last Filed: 03/03/19 08:57> Physical Exam <RAFAT ADAMS - Last Filed: 03/03/19 08:57> - Vital signs Vitals: Resp BP Pulse Ox 12 133/66 H 96 03/03/19 04:26 03/03/19 04:26 03/03/19 04:26 - Notes Notes: GENERAL: Irritable, appears uncomfortable, still alert and responsive. HEAD: Normocephalic, atraumatic. EYES: Pupils equal, round, and reactive to light. Extraocular movements intact. ENT: Oral mucosa moist, tongue midline. Oropharynx unremarkable. Airway patent. LUNGS: Clear to auscultation bilaterally, no wheezes, rales, or rhonchi. No respiratory distress. HEART: Regular rate and rhythm. No murmur ABDOMEN: Questionable mild distention. Diffuse generalized mild tenderness without guarding or rebound tenderness. Bowel sounds present. GENITOURINARY: Nontender, not swollen, no signs of torsion or infection. EXTREMITIES: Moves all 4 extremities spontaneously. No edema, normal radial and dorsalis pedis pulses bilaterally. No cyanosis. BACK: no cervical, thoracic, lumbar midline tenderness. No saddle anesthesia, normal distal neurovascular exam. Moves all extremities in full range of motion. NEUROLOGICAL: Alert and oriented x3. Normal speech. Cranial nerves II through XII grossly intact. SKIN: Warm, dry, normal turgor. No rashes or lesions noted. (RAFAT ADAMS) Course - Laboratory Result Diagrams: 03/03/19 04:25 03/03/19 04:25 <CHAPARRITAAKINRAFAT - Last Filed: 03/03/19 08:57> - Laboratory Result Diagrams: 03/03/19 04:25 03/03/19 04:25 <GILBERTO ALVARADO - Last Filed: 03/03/19 12:19> - Re-evaluation Re-evalutation: Patient is very uncomfortable on initial evaluation, however he did go into the bathroom, had a somewhat hard bowel movement, afterwards he was improved but still uncomfortable. He has generalized abdominal tenderness without guarding or rigidity. Possible minimal distention. Unremarkable vital signs. After medications patient reevaluated and has no current symptoms. CBC, chemistry, lipase unremarkable. Troponin is not elevated. Urinalysis is unremarkable. Discussed with patient and , because of patient's pain, age, CAT scan will be performed to rule out acute emergent etiology. Patient tolerated contrast well. Pending scan. 03/03/19 08:24 Patient has been delayed in getting CAT scan because of equipment malfunction. I did update patient. Introduced to Jc Alvarado at bedside. (RAFAT ADAMS) 03/03/19 09:52 I received patient from BERNARDO Mitchell, after warm bedside handoff. Very pleasant male awaiting CT. CT abdomen/pelvis completed which showed concern for acute cholecystitis, CT read as distended gallbladder with gallbladder wall thickening with trace pericholecystitic fluid. I have called the surgeon, Dr. Karan De La Cruz, who is going to see the patient in the emergency department. 03/03/19 12:17 Dr. De La Cruz saw the patient and accepted the patient for admission. There was some confusion as the patient and his significant other initially told Dr. De La Cruz that the patient was on Plavix but the significant other pulled me aside and said they were mistaken. There is no evidence of any prescriptions of Plavix in our system. I called Dr. De La Cruz back and spoke with 1 of the OR techs to clarify that the patient is indeed NOT taking Plavix. (GILBERTO ALVARADO) - Vital Signs Vital signs: Temp Pulse Resp BP Pulse Ox 15 155/82 H 100 03/03/19 11:25 03/03/19 11:25 03/03/19 11:25 - Laboratory Laboratory results interpreted by me: 03/03/19 03/03/19 03/03/19 04:25 04:25 06:50 RBC 3.80 L Hgb 11.7 L Hct 33.9 L Seg Neutrophils % 82.3 H Lymphocytes % 10.7 L Absolute Neutrophils 8.5 H BUN 24 H Glucose 182 H Total Protein 6.1 L Urine Glucose (UA) 150 H Urine Ketones 25 H Urine Urobilinogen 2.0 H Discharge <RAFAT ADAMS - Last Filed: 03/03/19 08:57> - Discharge Admitting Provider: Surgicalist <GILBERTO ALVARADO - Last Filed: 03/03/19 12:19> - Discharge Clinical Impression: Acute cholecystitis, Abdominal pain, right upper quadrant Condition: Stable Disposition: ADMITTED INPATIENT Referrals: KARYN LEIJA MD [Primary Care Provider] - Follow up as needed
[2019-03-03 04:35] LABS: ABSOLUTE EOSINOPHILS # (AUTO) 0.2 10^3/uL (0.0-0.6); ABSOLUTE LYMPHOCYTES (AUTO) 1.1 10^3/uL (0.5-4.7); ABSOLUTE MONOCYTES (AUTO) 0.5 10^3/uL (0.1-1.4); ABSOLUTE NEUT (AUTO) 8.5 10^3/uL (1.7-8.2); BASOPHILS % (AUTO) 0.4 % (0-2); EOSINOPHILS % (AUTO) 1.6 % (0-6); HEMATOCRIT 33.9 % (37.9-51.0); HEMOGLOBIN 11.7 g/dL (13.5-17.0); LYMPHOCYTES % (AUTO) 10.7 % (13-45); MEAN CORPUSCULAR HEMOGLOBIN 30.7 pg (27.0-33.4); MEAN CORPUSCULAR HGB CONC 34.5 g/dL (32.0-36.0); MEAN CORPUSCULAR VOLUME 89 fl (80-97); PLATELET COUNT 182 10^3/uL (150-450); RED CELL DISTRIBUTION WIDTH 13.8 % (11.5-14.0); SEGMENTED NEUTROPHILS % (AUTO) 82.3 % (42-78); TOTAL CELLS COUNTED % (AUTO) 100 %; WHITE BLOOD COUNT 10.3 10^3/uL (4.0-10.5)
[2019-03-03 05:04] LABS: ALANINE AMINOTRANSFERASE 26 U/L (21-72); ALBUMIN 3.5 g/dL (3.5-5.0); ALKALINE PHOSPHATASE 74 U/L (38-126); ANION GAP 7 (5-19); ASPARTATE AMINO TRANSFERASE 23 U/L (17-59); BILIRUBIN,DIRECT 0.2 mg/dL (0.0-0.4); BILIRUBIN,TOTAL 0.4 mg/dL (0.2-1.3); BLOOD UREA NITROGEN 24 mg/dL (7-20); CALCIUM 8.4 mg/dL (8.4-10.2); CARBON DIOXIDE 26 mmol/L (22-30); CHLORIDE 104 mmol/L (98-107); GLUCOSE 182 mg/dL (75-110); LIPASE 126.5 U/L (23-300); POTASSIUM 4.5 mmol/L (3.6-5.0); SODIUM 137.3 mmol/L (137-145); TOTAL PROTEIN 6.1 g/dL (6.3-8.2)
[2019-03-03 07:59] LABS: APPEARANCE,URINE CLEAR; BILIRUBIN,URINE NEGATIVE (NEGATIVE); COLOR,URINE YELLOW; GLUCOSE, URINE 150 mg/dL (NEGATIVE); KETONES,URINE 25 mg/dL (NEGATIVE); PROTEIN,URINE NEGATIVE (NEGATIVE); URINE SPECIFIC GRAVITY 1.023
[2019-03-03 08:00] LABS: LEUKOCYTE ESTERASE,URINE NEGATIVE (NEGATIVE); NITRITE,URINE NEGATIVE (NEGATIVE)
--- NOTE | 2019-03-03 09:41 | RADIOLOGY REPORT (SQ) ---
EXAM DESCRIPTION: CT ABD/PELVIS WITH IV ORAL COMPLETED DATE/TIME: 03/03/2019 9:18 am REASON FOR STUDY: sharp mid abd pain, nausea COMPARISON: None. TECHNIQUE: CT scan of the abdomen and pelvis performed using helical scanning technique with dynamic intravenous contrast injection. No oral contrast. Images reviewed with lung, soft tissue, and bone windows. Reconstructed coronal and sagittal MPR images reviewed. Delayed images for evaluation of the urinary system also acquired. All images stored on PACS. All CT scanners at this facility use dose modulation, iterative reconstruction, and/or weight based d osing when appropriate to reduce radiation dose to as low as reasonably achievable (ALARA). [facility]: Dose Right [facility]: CareDose [facility]: Dose Right [facility]: Teradose 4D [facility]: FiveRuns CONTRAST TYPE AND DOSE: contrast/concentration: Isovue 350.00 mg/ml; Total Contrast Delivered: 96.0 ml; Total Saline Delivered: 69.9 ml RENAL FUNCTION: Creatinine 1.08 RADIATION DOSE: CT Rad equipment meets quality standard of care and radiation dose reduction techniq ues were employed. CTDIvol: 9.0 - 10.6 mGy. DLP: 1058 mGy-cm.. LIMITATIONS: None. FINDINGS: LOWER CHEST: No significant findings. No nodules or infiltrates. LIVER: Normal size. No masses. No dilated ducts. SPLEEN: Normal size. No focal lesions. PANCREAS: No masses. No significant calcifications. No adjacent inflammation or peripancreatic fluid collections. Pancreatic duct not dilated. GALLBLADDER: Gallbladder is distended 10 cm in length with multiple stones at the gallbladder neck. Gallbladder wall thickening and pericholecystic fluid or evident on coronal image 38. Findings are w orrisome for acute cholecystitis ADRENAL GLANDS: No significant masses or asymmetry. RIGHT KIDNEY AND URETER: No solid masses. No significant calcifications. No hydronephrosis or hyd roureter. LEFT KIDNEY AND URETER: No solid masses. No significant calcifications. No hydronephrosis or hydr oureter. AORTA AND VESSELS: No aneurysm. No dissection. Renal arteries, SMA, celiac without stenosis. RETROPERITONEUM: No retroperitoneal adenopathy, hemorrhage or masses. BOWEL AND PERITONEAL CAVITY: Patient drank oral contrast. No CT evidence of bowel obstruction or aung e intraperitoneal air or fluid. Moderate stool in the ascending colon. APPENDIX: Normal. PELVIS: No mass. No free fluid. Normal bladder. ABDOMINAL WALL: No masses. No hernias. BONES: Or lower lumbar laminectomies with hardware OTHER: No other significant finding. IMPRESSION: Distended gallbladder with gallbladder wall thickening by CT and trace pericholecystic f luid. Multiple stones are present in the gallbladder, findings are worrisome for acute cholecystitis . TECHNICAL DOCUMENTATION: JOB ID: [id number] Quality ID # [id number]: Final reports with documentation of one or more dose reduction techniques (e.g., Au tomated exposure control, adjustment of the mA and/or kV according to patient size, use of iterative reconstruction technique) 2010 [employer]- All Rights Reserved Reading location - IP/workstation name: [email or web address]
[2019-03-03] MEDS ORDERED: ONDANSETRON HCL INJ/PF 4 MG/2 ML SDV IV PRN (12:07)
[2019-03-03] MEDS ORDERED: MORPHINE SULFATE 10 MG/ML INJ IV PRN (12:07)
[2019-03-03] MEDS ORDERED: NORMAL SALINE 1000 ML 1,000 ML IV PRN (12:07)
[2019-03-03] MEDS ORDERED: DEXTROSE 50%-WATER 25 GM/50 ML DISP.SYRIN IV PRN ×2 (13:25)
[2019-03-03] MEDS ORDERED: HYDRALAZINE HCL INJ/PF 20 MG/1 ML SDV IV PRN (13:25)
[2019-03-03] MEDS ORDERED: GLUCAGON,HUMAN RECOMB 1 MG INJ IM PRN (13:25)
[2019-03-03] MEDS ORDERED: DEXTROSE 40% GEL 15 GM TUBE PO PRN ×2 (13:25)
[2019-03-03] MEDS: PANTOPRAZOLE SODIUM 40 MG VIAL IV SCH (14:03)
--- NOTE | 2019-03-03 17:07 | PDOC CONSULTATION ---
Consultation-Blank Consultation: CARDIOLOGY CONSULTATION by Dr. Terrie Ellis on 03/03/2019. Patient seen at 1600 on 03/03/2019. REASON FOR CONSULTATION: Preoperative cardiac risk assessment for gallbladder surgery. Consult requesting physician: Dr. De La Cruz, surgical list. HISTORY PRESENT ILLNESS: Patient is a pleasant 78-year-old male with known history of coronary artery disease, history of stent in unknown coronary artery in 2008, with no anginal symptoms since then, hypertension, diabetes mellitus, and no history of COPD, in spite of prior history of smoking, admitted with sharp right upper quadrant pain of one day duration with nausea and vomiting. The patient has been diagnosed with acute cholecystitis with cholelit hiasis, and is for surgical management of the same with cholecystectomy planned for tomorrow. The patient has no anginal symptoms. There is no PND or orthopnea. There is no palpitations. There is no cough or wheezing. There is no leg edema. There is no arrhythmia seen on the monitor. There is no TIA CVA symptoms. Although he has a history of back surgery in the past in 2006, he states he is very active and has very good effort tolerance. Past Medical History Cardiac Medical History: Reports: Coronary Artery Disease, no history of PA. History of stent in unknown coronary artery in the past., Hyperlipidema, Hypertension. No history of congestive heart failure. No history of cardiac arrhythmia. Endocrine Medical History: Reports: Diabetes Mellitus Type 2. No history of thyroid disease. GI Medical History: Reports: Gastroesophageal Reflux Disease. No history of TIA CVA, and no history of chronic kidney disease. No history of depression or anxiety. Past Surgical History Past Surgical History: Reports: Coronary Stent. Unknown coronary artery. History of back surgery in 2006. 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 Smoking Status: Former Smoker - Stopped in 1976 Resuscitation Status: Full CodeHis Surrogate healthcare decision maker is his current fiance. Family History: CAD, Malignancy Parental Family History Reviewed: Yes - Mother of coronary disease, father of alcoholism Medication/Allergy Home Medications: Aspirin [Adult Aspirin] 81 mg PO DAILY 08/09/18 Carvedilol [Coreg 3.125 mg Tablet] 1 PO Q12 08/09/18 Furosemide [Lasix 20 mg Tablet] 20 mg PO QAM 08/09/18 Glipizide [Glucotrol Xl 5 mg Tab.er] 5 mg PO QAM 08/09/18 Isosorbide Mononitrate [Imdur 30 mg Tablet.er] 30 mg PO DAILY 08/09/18 Multivitamin [Daily Multiple Vitamin] 1 each PO DAILY 08/09/18 Omeprazole 20 mg PO DAILY 08/09/18 Pravastatin Sodium [Pravachol] 20 mg PO QHS 08/09/18 Allergies/Adverse Reactions: No Known Allergies Allergy (Unverified 07/24/18 23:35) Review of Systems Constitutional: PRESENT: weakness. ABSENT: chills, fever(s), headache(s), weight gain, weight loss Eyes: ABSENT: visual disturbance Ears: ABSENT: hearing changes NOSE: No history of hayfever. No history of nosebleeds. THROAT: No history of odynophagia or dysphagia. MOUTH: No history of altered taste sensation. No history of ulcers in the mouth. SKIN: No history of allergic discoloration of the skin. No history of pruritus. Cardiovascular: ABSENT: chest pain, dyspnea on exertion, edema, orthropnea, palpitations Respiratory: ABSENT: cough, hemoptysis. No history of COPD or. No recent symptoms of cough or symptoms of upper or lower respiratory tract infection. No history of sleep apnea. No history of pulmonary embolism. No history of pleuritic chest pain. No hemoptysis. Gastrointestinal: ABSENT: abdominal pain, constipation, diarrhea, hematemesis, hematochezia, nausea, vomiting. No history of GI bleed. No history of jaundice. No history of hepatitis. Genitourinary: ABSENT: dysuria, hematuria. No history of chronic kidney disease. Musculoskeletal: ABSENT: joint swelling. History of chronic back pain due to arthritis. Integumentary: ABSENT: rash, wounds. No history of eczema or skin rashes. Neurological: ABSENT: abnormal gait, abnormal speech, confusion, dizziness, focal weakness, syncope. No history of TIA CVA Psychiatric: ABSENT: anxiety, depression, homidical ideation, suicidal ideation Endocrine: ABSENT: cold intolerance, heat intolerance, polydipsia, polyuria. History of diabetes mellitus. No history of thyroid disease. Hematologic/Lymphatic: ABSENT: easy bleeding, easy bruising. PHYSICAL EXAMINATION: The patient is well-built and well-nourished, in spite of his right upper quadrant pain he seems fairly comfortable and is joking. He looks younger than his stated age. Selected Entries 03/03/19 16:06 Temperature 97.3 F Temperature Oral Source Pulse Rate 82 Respiratory 19 Rate Blood Pressure 168/76 H [Right Upper Arm] Blood Pressure 106 Mean [Right Upper Arm] Blood Pressure Supine Position [Right Upper Arm] O2 Sat by Pulse 98 Oximetry Oxygen Delivery Room Air Method ( includes room air) HEAD: Is atraumatic normocephalic. EYES: Pupils are equal round regular reactive to light accommodation. Extraocular movements are normal. There is no conjunctival pallor. There is no scleral icterus. NOSE: There is no deviated nasal septum. There is no inflammation of the nasal mucous membrane. MOUTH: Mucous membranes of mouth are moist. Tongue is moist. There is no ulcers. There is no bleeding from the gums. THROAT: There is no redness of the oropharynx. There is no exudates. SKIN: There is no skin rashes or skin lesions. There is no particular ecchymosis. NECK: Is supple. There is no JVD. Carotids are equal there is no bruit. There is no lymphadenopathy. There is no goiter. There is no accessory muscles of respiration use. Trachea central. LUNGS: Is clear to auscultation percussion. Without any rhonchi rales or wheezing. HEART: S1-S2 is heard. There is no S3 gallop. There is no S4 gallop. There is systolic murmur in the left sternal border and the apex. There is no rub. ABDOMEN: There is no hepatospleno megaly. There is discomfort on palpation of the right upper quadrant. Beckett sign is positive. Bowel sounds are normal. There is no rebound guarding or rigidity. EXTREMITIES: Femorals are well felt. There is no femoral bruits. Leg pulses are well felt. There is no pedal edema. There is no DVT or cellulitis. There is no calf tenderness. There is no cyanosis or clubbing. 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 PSYCHIATRIC: The patient judgment insight are intact her affect is normal. Current Medications Dextrose (Dextrose Inj 50% Syringe (25 Gm/50 Ml)) 25 gm IV PRN PRN; Protocol PRN Reason: PER PROTOCOL Stop: 04/02/19 13:24 Dextrose (Dextrose Inj 50% Syringe (25 Gm/50 Ml)) 12.5 gm IV PRN PRN; Protocol PRN Reason: FOR BG 50-69 IN ALERT PATIENT Stop: 04/02/19 13:24 Glucagon (Glucagen Inj 1 Mg Vial) 1 mg IM PRN PRN; Protocol PRN Reason: Evaluate for BG < 70 Stop: 04/02/19 13:24 Glucose (Glutose 40% Gel 15 Gm Tube) 15 gm PO PRN PRN; Protocol PRN Reason: FOR BG 50-69 IN ALERT PATIENT Stop: 04/02/19 13:24 Glucose (Glutose 40% Gel 15 Gm Tube) 30 gm PO PRN PRN; Protocol PRN Reason: FOR BG < 50 IN ALERT PATIENT Stop: 04/02/19 13:24 Hydralazine HCl (Apresoline Inj/Pf 20 Mg/1 Ml Sdv) 10 mg IV Q6HP PRN PRN Reason: for SBP>160 or DBP>100 Stop: 04/02/19 13:24 Sodium Chloride (Nacl 0.9% 1000 Ml Iv Soln) 1,000 mls @ 75 mls/hr IV CONTINUOUS PRN PRN Reason: THIS MED IS NOT "PRN" Stop: 04/02/19 12:06 Piperacillin Sod/Tazobactam (Sod 3.375 gm/ Sodium Chloride) 100 mls @ 200 mls/hr IV Q6 [facility] Stop: 03/10/19 17:59 Last Infusion: 03/03/19 18:41 Dose: Infused Documented by: Insulin Human Lispro (Humalog Insulin 100 Unit/1 Ml 3 Ml Vial) 0 - 12 unit SUBCUT Q6 [facility]; Protocol Stop: 04/02/19 17:59 Last Admin: 03/03/19 18:38 Dose: Not Given Documented by: Morphine Sulfate (Morphine 10 Mg/Ml Inj) 4 mg IV Q4HP PRN PRN Reason: FOR BREAKTHROUGH PAIN Stop: 03/10/19 12:06 Ondansetron HCl (Zofran Inj/Pf 4 Mg/2 Ml Sdv) 4 mg IV Q4HP PRN PRN Reason: FOR NAUSEA/VOMITING Stop: 04/02/19 12:06 Pantoprazole Sodium (Protonix Iv Inj 40 Mg Vial) 40 mg IV DAILY [facility] Stop: 03/06/19 13:59 Last Admin: 03/03/19 14:03 Dose: 40 mg Documented by: Discontinued Medications Sodium Chloride (Nacl 0.9% 1000 Ml Iv Soln) 1,000 mls @ 0 mls/hr IV BOLUS ONE Stop: 03/03/19 03:41 Last Infusion: 03/03/19 06:30 Dose: Infused Documented by: Sodium Chloride (Nacl 0.9% 1000 Ml Iv Soln) 1,000 mls @ 125 mls/hr IV NOW ONE Stop: 03/03/19 19:22 Last Admin: 03/03/19 13:22 Dose: 125 mls/hr Documented by: Morphine Sulfate (Morphine 10 Mg/Ml Inj) 5 mg IV NOW ONE Stop: 03/03/19 03:41 Last Admin: 03/03/19 04:17 Dose: 5 mg Documented by: Ondansetron HCl (Zofran Inj/Pf 4 Mg/2 Ml Sdv) 8 mg IV NOW ONE Stop: 03/03/19 03:41 Last Admin: 03/03/19 04:17 Dose: 8 mg Documented by: Labs- All tests 24 hr 03/03/19 03/03/19 03/03/19 04:25 04:25 04:25 WBC 10.3 RBC 3.80 L Hgb 11.7 L Hct 33.9 L MCV 89 MCH 30.7 MCHC 34.5 RDW 13.8 Plt Count 182 Seg Neutrophils % 82.3 H Lymphocytes % 10.7 L Monocytes % 5.0 Eosinophils % 1.6 Basophils % 0.4 Absolute Neutrophils 8.5 H Absolute Lymphocytes 1.1 Absolute Monocytes 0.5 Absolute Eosinophils 0.2 Absolute Basophils 0.0 Sodium 137.3 Potassium 4.5 Chloride 104 Carbon Dioxide 26 Anion Gap 7 BUN 24 H Creatinine 1.08 Est GFR ( Amer) > 60 Est GFR (Non-Af Amer) > 60 Glucose 182 H POC Glucose Hemoglobin A1c % Lactic Acid Calcium 8.4 Total Bilirubin 0.4 Direct Bilirubin 0.2 Neonat Total Bilirubin Not Reportable Neonat Direct Bilirubin Not Reportable Neonat Indirect Bili Not Reportable AST 23 ALT 26 Alkaline Phosphatase 74 Troponin I < 0.012 Total Protein 6.1 L Albumin 3.5 Lipase 126.5 Urine Color Urine Appearance Urine pH Ur Specific Brandon Urine Protein Urine Glucose (UA) Urine Ketones Urine Blood Urine Nitrite Urine Bilirubin Urine Urobilinogen Ur Leukocyte Esterase Urine WBC (Auto) Urine RBC (Auto) Squamous Epi Cells Auto Urine Mucus (Auto) Urine Ascorbic Acid Blood Type Antibody Screen 03/03/19 03/03/19 03/03/19 04:25 05:57 06:50 WBC RBC Hgb Hct MCV MCH MCHC RDW Plt Count Seg Neutrophils % Lymphocytes % Monocytes % Eosinophils % Basophils % Absolute Neutrophils Absolute Lymphocytes Absolute Monocytes Absolute Eosinophils Absolute Basophils Sodium Potassium Chloride Carbon Dioxide Anion Gap BUN Creatinine Est GFR ( Amer) Est GFR (Non-Af Amer) Glucose POC Glucose Hemoglobin A1c % 7.2 H Lactic Acid 1.3 Calcium Total Bilirubin Direct Bilirubin Neonat Total Bilirubin Neonat Direct Bilirubin Neonat Indirect Bili AST ALT Alkaline Phosphatase Troponin I Total Protein Albumin Lipase Urine Color YELLOW Urine Appearance CLEAR Urine pH 5.0 Ur Specific Brandon 1.023 Urine Protein NEGATIVE Urine Glucose (UA) 150 H Urine Ketones 25 H Urine Blood NEGATIVE Urine Nitrite NEGATIVE Urine Bilirubin NEGATIVE Urine Urobilinogen 2.0 H Ur Leukocyte Esterase NEGATIVE Urine WBC (Auto) 2 Urine RBC (Auto) 1 Squamous Epi Cells Auto <1 Urine Mucus (Auto) RARE Urine Ascorbic Acid NEGATIVE Blood Type Antibody Screen 03/03/19 03/03/19 03/03/19 13:13 14:11 18:33 WBC RBC Hgb Hct MCV MCH MCHC RDW Plt Count Seg Neutrophils % Lymphocytes % Monocytes % Eosinophils % Basophils % Absolute Neutrophils Absolute Lymphocytes Absolute Monocytes Absolute Eosinophils Absolute Basophils Sodium Potassium Chloride Carbon Dioxide Anion Gap BUN Creatinine Est GFR ( Amer) Est GFR (Non-Af Amer) Glucose POC Glucose 89 98 Hemoglobin A1c % Lactic Acid Calcium Total Bilirubin Direct Bilirubin Neonat Total Bilirubin Neonat Direct Bilirubin Neonat Indirect Bili AST ALT Alkaline Phosphatase Troponin I Total Protein Albumin Lipase Urine Color Urine Appearance Urine pH Ur Specific Brandon Urine Protein Urine Glucose (UA) Urine Ketones Urine Blood Urine Nitrite Urine Bilirubin Urine Urobilinogen Ur Leukocyte Esterase Urine WBC (Auto) Urine RBC (Auto) Squamous Epi Cells Auto Urine Mucus (Auto) Urine Ascorbic Acid Blood Type B POSITIVE Antibody Screen NEGATIVE Abdomen/Pelvis CT 03/03/19 00:00 IMPRESSION: Distended gallbladder with gallbladder wall thickening by CT and trace pericholecystic fluid. Multiple stones are present in the gallbladder, findings are worrisome for acute cholecystitis. EKG: Sinus bradycardia. Within normal limits. No acute changes. ECHOCARDIOGRAM: Note the study is a poor quality study, with poor endocardial visualization. Hence the following interpretation is subjective to severe technical limitation. The left ventricle is normal in size. There is normal left ventricular wall thickness. LV EF is > than 60% Left ventricular systolic function is normal. Doppler measurements suggest impaired left ventricular relaxation, which is associated with grade I/IV or mild diastolic dysfunction The left ventricular wall motion is normal. There is no thrombus. No ASD,VSD , or PFO seen. The right ventricle is not well visualized secondary to technical limitations The right atrium is normal. The left atrial size is normal. There is no evidence of mitral valve prolapse. There is no vegetation seen on the mitral valve. There is no mitral valve stenosis. There is a trace amount of mitral regurgitation There is no aortic valvular vegetation. There is no aortic valve stenosis There is no LVOT obstruction. No aortic regurgitation is present. There is no tricuspid stenosis. Unable to calculate RVSP due to insufficient TR jet. There is no pulmonic valvular stenosis. There is no pulmonic valvular regurgitation. The aortic root is normal size. There is no pericardial effusion. IMPRESSION/RECOMMENDATION: 1. Acute cholecystitis with cholelithiasis. 2. Coronary artery disease: No anginal symptoms, and no acute changes on the EKG. His CAD seems to be very stable. We will get his records from [facility] regarding his stent placement details. 3. Hypertension: Blood pressure slightly elevated due to the pain due from his gallbladder disease. 4. Diabetes mellitus: Continue antidiabetic treatment. Continue Accu-Cheks. 5. Hyperlipidemia: Continue statins. 6. Encounter for preprocedural cardiovascular examination. [Cardiac risk assessment for surgery]. The patient's echo was discussed with the patient and the patient's fianc. His medications have been reviewed. Patient will be acceptable/low cardiac risk for this gallbladder surgery. The patient and the patient's fianc are aware of the risks of PA, stroke, congestive heart failure, arrhythmias, and even . Postoperatively will check serial cardiac enzymes and EKGs, and monitor the patient's rhythm on telemetry. Will follow. Medical decision making is of high complexity. Discussed with the surgical list and the hospitalist. Will follow.
--- NOTE | 2019-03-03 17:14 | XCELERA REPORT ---
[address] [address] Transthoracic Echocardiogram Report Name: AKILAH GODFREY Age: 78 yrs Gender: Male : 1940 Patient Status: Inpatient [address] Study Date: 03/03/2019 04:17 PM Height: 68 in Weight: 175 lb BSA: 1.9 m2 Procedure: A two-dimensional transthoracic echocardiogram with color flow and Doppler was performed. Study Quality: Poor. Poor endocardial visualisation. Reason For Study: CAD / MURMUR /Pre-op History: CAD / MURMUR /Pre-op. Ordering Physician: TERRIE ELLIS Performed By: Adama Chase Interpretation Summary The left ventricle is normal in size. There is normal left ventricular wall thickness. LV EF is > than 60% Left ventricular systolic function is normal. Doppler measurements suggest impaired left ventricular relaxation, which is associated with grade I/IV or mild diastolic dysfunction The left ventricular wall motion is normal. There is no thrombus. No ASD,VSD , or PFO seen. The right ventricle is not well visualized secondary to technical limitations The right atrium is normal. The left atrial size is normal. There is no evidence of mitral valve prolapse. There is no vegetation seen on the mitral valve. There is no mitral valve stenosis. There is a trace amount of mitral regurgitation There is no aortic valvular vegetation. There is no aortic valve stenosis There is no LVOT obstruction. No aortic regurgitation is present. There is no tricuspid stenosis. Unable to calculate RVSP due to insufficient TR jet. There is no pulmonic valvular stenosis. There is no pulmonic valvular regurgitation. The aortic root is normal size. There is no pericardial effusion. MMode/2D Measurements & Calculations RVDd: 2.9 cm LVIDd: 4.5 cm FS: 24.2 % Ao root diam: 3.1 cm IVSd: 0.92 cm LVIDs: 3.4 cm EDV(Teich): 91.1 ml Ao root area: 7.5 cm2 LVPWd: 0.86 cm ESV(Teich): 47.1 ml LA dimension: 3.9 cm EF(Teich): 48.3 % LVOT diam: 2.0 cm LVOT area: 3.1 cm2 Doppler Measurements & Calculations MV E max moody: MV P1/2t max moody: Ao V2 max: LV V1 max P.9 cm/sec 92.3 cm/sec 108.0 cm/sec 4.1 mmHg MV A max moody: MV P1/2t: 55.2 msec Ao max PG: LV V1 max: 81.9 cm/sec MVA(P1/2t): 4.0 cm2 4.7 mmHg 101.2 cm/sec MV E/A: 1.0 MV dec slope: LOULOU(V,D): 2.9 cm2 489.5 cm/sec2 MV dec time: 0.18 sec PA V2 max: MV P1/2t-pr_phl: 111.0 cm/sec 55.2 msec PA max P.9 mmHg Left Ventricle The left ventricle is normal in size. There is normal left ventricular wall thickness. LV EF is > than 60%. Left ventricular systolic function is normal. Doppler measurements suggest impaired left ventricular relaxation, which is associated with grade I/IV or mild diastolic dysfunction. The left ventricular wall motion is normal. There is no thrombus. No ASD,VSD , or PFO seen. Right Ventricle The right ventricle is not well visualized secondary to technical limitations. Atria The right atrium is normal. The left atrial size is normal. Mitral Valve There is no evidence of mitral valve prolapse. There is no vegetation seen on the mitral valve. There is no mitral valve stenosis. There is a trace amount of mitral regurgitation. Aortic Valve There is no aortic valvular vegetation. There is no aortic valve stenosis. There is no LVOT obstruction. No aortic regurgitation is present. Tricuspid Valve There is no tricuspid stenosis. There is a trace amount of tricuspid regurgitation. Unable to calculate RVSP due to insufficient TR jet. Pulmonic Valve There is no pulmonic valvular stenosis. There is no pulmonic valvular regurgitation. Great Vessels The aortic root is normal size. Effusions There is no pericardial effusion. : TERRIE ELLIS > Terrie Ellis
[2019-03-03] MEDS: PIPERACILLIN SODIUM/TAZOBACTAM 3.375 GM in NORMAL SALINE 100 ML IV SCH ×2 (17:30→23:34)
--- NOTE | 2019-03-03 17:33 | PDOC CONSULTATION ---
Consultation Consult Date: 03/03/19 Provider Consulted: MELODY العلي History of Present Illness Admission Date/PCP: 03/03/19 12:06 KARYN LIEJA MD Patient complains of: abdominal pain History of Present Illness: AKILAH GODFREY is a 78 year old male with a PMH of DM 2, hypertension, h yperlipidemia, GERD and CAD with prior stenting who presented with epigastric pain which started 3 days ago. Patient was found to have cholecystitis with multiple gallbladder stones. He was admitted by surgery for possible cholecystectomy tomorrow. Hospitalist service was consulted for medical co-management. On encounter, he appears comfortable. Denies chest pain or SOB. He says he follows up with Dr. Conrado Mcknight at [facility] but has not seem him a while. He had an abnormal stress test 8-10 yrs ago, subsequently had a cath and required a stent placement. He denies a diagnosis of CHF. He is on aspirin and not on Plavix. Past Medical History Cardiac Medical History: Reports: Coronary Artery Disease, Hyperlipidema, Hypertension Endocrine Medical History: Reports: Diabetes Mellitus Type 2 GI Medical History: Reports: Gastroesophageal Reflux Disease Psychiatric Medical History: Denies: Depression Past Surgical History Past Surgical History: Reports: Coronary Stent Social History Lives with: Family Smoking Status: Former Smoker Frequency of Alcohol Use: None Hx Recreational Drug Use: No Drugs: None Hx Prescription Drug Abuse: No Family History Family History: CAD, Malignancy Parental Family History Reviewed: Yes - no premature CAD Children Family History Reviewed: No Sibling(s) Family History Reviewed.: No Medication/Allergy Home Medications: Aspirin [Adult Aspirin] 81 mg PO DAILY 08/09/18 Furosemide [Lasix 20 mg Tablet] 20 mg PO QAM 08/09/18 Glipizide [Glucotrol Xl 5 mg Tab.er] 5 mg PO QAM 08/09/18 Isosorbide Mononitrate [Imdur 30 mg Tablet.er] 30 mg PO DAILY 08/09/18 Multivitamin [Daily Multiple Vitamin] 1 each PO DAILY 08/09/18 Omeprazole 20 mg PO DAILY 08/09/18 Pravastatin Sodium [Pravachol] 20 mg PO QHS 08/09/18 Carvedilol [Coreg 3.125 mg Tablet] 3.125 mg PO Q12 #60 tablet 08/10/18 Allergies/Adverse Reactions: No Known Allergies Allergy (Verified 03/03/19 04:09) Review of Systems All systems: reviewed and no additional remarkable complaints except as stated Physical Exam Vital Signs: Temp Pulse Resp BP Pulse Ox 15 155/82 H 100 03/03/19 11:25 03/03/19 11:25 03/03/19 11:25 Intake & Output 03/02/19 03/03/19 03/04/19 06:59 06:59 06:59 Intake Total 1000 Output Total 700 Balance 1000 -700 Weight 175 lb General appearance: PRESENT: no acute distress, well-developed, well-nourished Head exam: PRESENT: atraumatic, normocephalic Eye exam: PRESENT: conjunctiva pink, EOMI, PERRLA. ABSENT: scleral icterus Ear exam: PRESENT: normal external ear exam Neck exam: ABSENT: carotid bruit, JVD, lymphadenopathy, thyromegaly Respiratory exam: PRESENT: clear to auscultation darian. ABSENT: rales, rhonchi, wheezes Cardiovascular exam: PRESENT: RRR. ABSENT: diastolic murmur, rubs, systolic murmur Pulses: PRESENT: normal dorsalis pedis pul GI/Abdominal exam: PRESENT: normal bowel sounds, soft. ABSENT: distended, guarding, mass, organolmegaly, rebound, tenderness Rectal exam: PRESENT: deferred Extremities exam: PRESENT: full ROM. ABSENT: calf tenderness, clubbing, pedal edema Neurological exam: PRESENT: alert, awake, oriented to person, oriented to place, oriented to time, oriented to situation, CN II-XII grossly intact. ABSENT: motor sensory deficit Results Laboratory Results: 03/03/19 04:25 03/03/19 04:25 03/03/19 03/03/19 03/03/19 04:25 04:25 05:57 WBC 10.3 RBC 3.80 L Hgb 11.7 L Hct 33.9 L MCV 89 MCH 30.7 MCHC 34.5 RDW 13.8 Plt Count 182 Seg Neutrophils % 82.3 H Lymphocytes % 10.7 L Monocytes % 5.0 Eosinophils % 1.6 Basophils % 0.4 Absolute Neutrophils 8.5 H Absolute Lymphocytes 1.1 Absolute Monocytes 0.5 Absolute Eosinophils 0.2 Absolute Basophils 0.0 Sodium 137.3 Potassium 4.5 Chloride 104 Carbon Dioxide 26 Anion Gap 7 BUN 24 H Creatinine 1.08 Est GFR ( Amer) > 60 Est GFR (Non-Af Amer) > 60 Glucose 182 H Lactic Acid 1.3 Calcium 8.4 Total Bilirubin 0.4 AST 23 ALT 26 Alkaline Phosphatase 74 Total Protein 6.1 L Albumin 3.5 Lipase 126.5 Urine Color Urine Appearance Urine pH Ur Specific [place] Urine Protein Urine Glucose (UA) Urine Ketones Urine Blood Urine Nitrite Ur Leukocyte Esterase Urine WBC (Auto) Urine RBC (Auto) 03/03/19 06:50 WBC RBC Hgb Hct MCV MCH MCHC RDW Plt Count Seg Neutrophils % Lymphocytes % Monocytes % Eosinophils % Basophils % Absolute Neutrophils Absolute Lymphocytes Absolute Monocytes Absolute Eosinophils Absolute Basophils Sodium Potassium Chloride Carbon Dioxide Anion Gap BUN Creatinine Est GFR ( Amer) Est GFR (Non-Af Amer) Glucose Lactic Acid Calcium Total Bilirubin AST ALT Alkaline Phosphatase Total Protein Albumin Lipase Urine Color YELLOW Urine Appearance CLEAR Urine pH 5.0 Ur Specific [place] 1.023 Urine Protein NEGATIVE Urine Glucose (UA) 150 H Urine Ketones 25 H Urine Blood NEGATIVE Urine Nitrite NEGATIVE Ur Leukocyte Esterase NEGATIVE Urine WBC (Auto) 2 Urine RBC (Auto) 1 03/03/19 04:25 Troponin I < 0.012 Impressions: Abdomen/Pelvis CT 03/03/19 00:00 IMPRESSION: Distended gallbladder with gallbladder wall thickening by CT and trace pericholecystic fluid. Multiple stones are present in the gallbladder, findings are worrisome for acute cholecystitis. Assessment and Plan - Diagnosis (1) Acute cholecystitis Is this a current diagnosis for this admission?: Yes Plan: Scheduled for cholecystectomy tomorrow. On Zosyn. (2) HTN (hypertension) Is this a current diagnosis for this admission?: Yes Plan: Currently NPO. Hydralazine prn for now. (3) Coronary artery disease Qualifiers: Coronary Disease-Associated Artery/Lesion type: [place] artery [place] vs. transplanted heart: [place] heart Associated angina: without angina Qualified Code(s): I25.10 - Atherosclerotic heart disease of [place] coronary artery without angina pectoris Is this a current diagnosis for this admission?: Yes Plan: Aspirin will be held for surgery tomorrow. Request records from [facility] cardiology. (4) Diabetes mellitus type 2 in nonobese Is this a current diagnosis for this admission?: Yes Plan: He is on glipizide at home. Accuchecks q6h while NPO. Cover with SSI for now. Check Hba1c. - Time Time Spent with patient: 25-34 minutes
--- NOTE | 2019-03-03 17:55 | PDOC H&P ---
History of Present Illness Admission Date/PCP: 03/03/19 12:06 KARYN LEIJA MD Patient complains of: Right upper quadrant pain, nausea, vomiting History of Present Illness: AKILAH GODFREY is a 78 year old male with a 1 day history of right upper quadrant pain, nausea, and vomiting. Patient states that the pain is sharp and stabbing. It radiates to his epigastrium and around to his back. The patient has never experienced symptoms like this before. The pain is 8 out of 10, at its worst. He has had nausea and several episodes of vomiting. He denies melena, hematochezia hematemesis. Nothing makes his pain better, palpation makes his pain worse. Patient has a history of coronary artery disease, requiring a cardiac stent in the remote past. Currently he denies chest pain, shortness of breath, dyspnea on exertion. He also has a history of diabetes. Past Medical History Cardiac Medical History: Reports: Coronary Artery Disease, Hyperlipidema, Hypertension Pulmonary Medical History: Reports: Chronic Obstructive Pulmonary Disease (COPD) Endocrine Medical History: Reports: Diabetes Mellitus Type 2 GI Medical History: Reports: Gastroesophageal Reflux Disease Psychiatric Medical History: Denies: Depression Past Surgical History Past Surgical History: Reports: Coronary Stent Social History Lives with: Family Smoking Status: Former Smoker Frequency of Alcohol Use: None Hx Recreational Drug Use: No Drugs: None Hx Prescription Drug Abuse: No - Advance Directive Resuscitation Status: Full Code Family History Family History: CAD, Malignancy Parental Family History Reviewed: Yes Children Family History Reviewed: Yes Sibling(s) Family History Reviewed.: Yes Medication/Allergy Home Medications: Aspirin [Adult Aspirin] 81 mg PO DAILY 08/09/18 Furosemide [Lasix 20 mg Tablet] 20 mg PO QAM 08/09/18 Glipizide [Glucotrol Xl 5 mg Tab.er] 5 mg PO QAM 08/09/18 Isosorbide Mononitrate [Imdur 30 mg Tablet.er] 30 mg PO DAILY 08/09/18 Multivitamin [Daily Multiple Vitamin] 1 each PO DAILY 08/09/18 Omeprazole 20 mg PO DAILY 08/09/18 Pravastatin Sodium [Pravachol] 20 mg PO QHS 08/09/18 Carvedilol [Coreg 3.125 mg Tablet] 3.125 mg PO Q12 #60 tablet 08/10/18 Allergies/Adverse Reactions: No Known Allergies Allergy (Verified 03/03/19 04:09) Review of Systems Constitutional: PRESENT: anorexia. ABSENT: chills, fatigue, fever(s), weakness Eyes: ABSENT: visual disturbances Ears: ABSENT: hearing changes Nose, Mouth, and Throat: ABSENT: sore throat Cardiovascular: ABSENT: chest pain, dyspnea on exertion Respiratory: ABSENT: cough, dyspnea Gastrointestinal: PRESENT: abdominal pain, nausea, vomiting. ABSENT: hematemesis, hematochezia, melena Genitourinary: ABSENT: dysuria Musculoskeletal: ABSENT: back pain Integumentary: ABSENT: pruritus, rash Neurological: ABSENT: confusion, convulsions, dizziness Psychiatric: ABSENT: anxiety, depression Endocrine: ABSENT: cold intolerance, heat intolerance Hematologic/Lymphatic: ABSENT: easy bleeding, easy bruising Physical Exam Vital Signs: Temp Pulse Resp BP Pulse Ox 72 15 149/78 H 98 03/03/19 16:55 03/03/19 15:01 03/03/19 15:01 03/03/19 15:01 Intake & Output 03/02/19 03/03/19 03/04/19 06:59 06:59 06:59 Intake Total 1000 Output Total 700 Balance 1000 -700 Weight 79.379 kg General appearance: PRESENT: mild distress Head exam: PRESENT: atraumatic, normocephalic Eye exam: PRESENT: EOMI, PERRLA. ABSENT: scleral icterus Mouth exam: PRESENT: moist, neck supple Neck exam: ABSENT: meningismus, tenderness, thyromegaly, tracheal deviation Respiratory exam: PRESENT: clear to auscultation darian, unlabored. ABSENT: chest wall tenderness, tachypnea, wheezes Cardiovascular exam: PRESENT: RRR Pulses: PRESENT: normal radial pulses Vascular exam: PRESENT: normal capillary refill. ABSENT: pallor GI/Abdominal exam: PRESENT: guarding, Beckett's sign, soft, tenderness - right upper quadrant. ABSENT: distended Rectal exam: PRESENT: deferred Extremities exam: ABSENT: clubbing Musculoskeletal exam: ABSENT: deformity Neurological exam: PRESENT: alert, awake, oriented to person, oriented to place, oriented to time, oriented to situation, CN II-XII grossly intact Psychiatric exam: ABSENT: agitated, anxious, depressed Focused psych exam: ABSENT: delusional Skin exam: ABSENT: cyanosis, erythema, jaundice Results Laboratory Results: 03/03/19 04:25 03/03/19 04:25 03/03/19 03/03/19 03/03/19 04:25 04:25 05:57 WBC 10.3 RBC 3.80 L Hgb 11.7 L Hct 33.9 L MCV 89 MCH 30.7 MCHC 34.5 RDW 13.8 Plt Count 182 Seg Neutrophils % 82.3 H Lymphocytes % 10.7 L Monocytes % 5.0 Eosinophils % 1.6 Basophils % 0.4 Absolute Neutrophils 8.5 H Absolute Lymphocytes 1.1 Absolute Monocytes 0.5 Absolute Eosinophils 0.2 Absolute Basophils 0.0 Sodium 137.3 Potassium 4.5 Chloride 104 Carbon Dioxide 26 Anion Gap 7 BUN 24 H Creatinine 1.08 Est GFR ( Amer) > 60 Est GFR (Non-Af Amer) > 60 Glucose 182 H Lactic Acid 1.3 Calcium 8.4 Total Bilirubin 0.4 AST 23 ALT 26 Alkaline Phosphatase 74 Total Protein 6.1 L Albumin 3.5 Lipase 126.5 Urine Color Urine Appearance Urine pH Ur Specific [place] Urine Protein Urine Glucose (UA) Urine Ketones Urine Blood Urine Nitrite Ur Leukocyte Esterase Urine WBC (Auto) Urine RBC (Auto) Blood Type Antibody Screen 03/03/19 03/03/19 06:50 13:13 WBC RBC Hgb Hct MCV MCH MCHC RDW Plt Count Seg Neutrophils % Lymphocytes % Monocytes % Eosinophils % Basophils % Absolute Neutrophils Absolute Lymphocytes Absolute Monocytes Absolute Eosinophils Absolute Basophils Sodium Potassium Chloride Carbon Dioxide Anion Gap BUN Creatinine Est GFR ( Amer) Est GFR (Non-Af Amer) Glucose Lactic Acid Calcium Total Bilirubin AST ALT Alkaline Phosphatase Total Protein Albumin Lipase Urine Color YELLOW Urine Appearance CLEAR Urine pH 5.0 Ur Specific [place] 1.023 Urine Protein NEGATIVE Urine Glucose (UA) 150 H Urine Ketones 25 H Urine Blood NEGATIVE Urine Nitrite NEGATIVE Ur Leukocyte Esterase NEGATIVE Urine WBC (Auto) 2 Urine RBC (Auto) 1 Blood Type B POSITIVE Antibody Screen NEGATIVE 03/03/19 04:25 Troponin I < 0.012 Impressions: Abdomen/Pelvis CT 03/03/19 00:00 IMPRESSION: Distended gallbladder with gallbladder wall thickening by CT and trace pericholecystic fluid. Multiple stones are present in the gallbladder, findings are worrisome for acute cholecystitis. Assessment & Plan - Diagnosis (1) Acute cholecystitis Is this a current diagnosis for this admission?: Yes - Plan Summary Plan Summary: This is a 78-year-old male with a physical exam and CT scan consistent with acu te cholecystitis. Patient will require surgical intervention. I discussed the case with anesthesia. I have recommended cardiology evaluation and cardiac clearance prior to any surgery be performed. I will admit the patient the hospital, consult cardiology, consult the hospitalist, make the patient n.p.o., and plan for surgical intervention tomorrow. Risks/benefits discussed, informed consent obtained, and all questions answered.
[2019-03-03] MEDS: INSULIN LISPRO 100 UNIT/ML 3 ML VIAL SUBCUT SCH ×2 (18:38→23:41)
--- NOTE | 2019-03-03 18:43 | ADVANCED CARE ---
- Diagnosis (1) Acute cholecystitis Diagnosis Current: Yes (2) HTN (hypertension) Diagnosis Current: Yes (3) Coronary artery disease Diagnosis Current: Yes (4) Diabetes mellitus type 2 in nonobese Diagnosis Current: Yes Attendance: Patient says that he is a full code. He says he would want to get chest compressions, defibrillation and mechanical ventilation if the need arises. He says that he is in the process of his and he says that he wants his girlfriend, Reema Briscoe to be her surrogate medical decision maker. Resuscitation Status: Full Code
--- NOTE | 2019-03-03 23:58 | EKG REPORT ---
SEVERITY:- NORMAL ECG - SINUS RHYTHM : Confirmed by: Leonor Vale 03-Mar-2019 23:58:06
[2019-03-04 06:21] LABS: ABSOLUTE EOSINOPHILS # (AUTO) 0.2 10^3/uL (0.0-0.6); ABSOLUTE LYMPHOCYTES (AUTO) 1.1 10^3/uL (0.5-4.7); ABSOLUTE MONOCYTES (AUTO) 0.6 10^3/uL (0.1-1.4); ABSOLUTE NEUT (AUTO) 4.8 10^3/uL (1.7-8.2); BASOPHILS % (AUTO) 0.4 % (0-2); EOSINOPHILS % (AUTO) 2.3 % (0-6); HEMATOCRIT 36.3 % (37.9-51.0); HEMOGLOBIN 12.7 g/dL (13.5-17.0); LYMPHOCYTES % (AUTO) 16.6 % (13-45); MEAN CORPUSCULAR HGB CONC 34.9 g/dL (32.0-36.0); MEAN CORPUSCULAR VOLUME 89 fl (80-97); MONOCYTES % (AUTO) 9.3 % (3-13); PLATELET COUNT 169 10^3/uL (150-450); RED BLOOD COUNT 4.08 10^6/uL (4.35-5.55); RED CELL DISTRIBUTION WIDTH 13.8 % (11.5-14.0); SEGMENTED NEUTROPHILS % (AUTO) 71.4 % (42-78); TOTAL CELLS COUNTED % (AUTO) 100 %; WHITE BLOOD COUNT 6.7 10^3/uL (4.0-10.5)
[2019-03-04] MEDS: PIPERACILLIN SODIUM/TAZOBACTAM 3.375 GM in NORMAL SALINE 100 ML IV SCH ×4 (06:27→23:20)
[2019-03-04 06:43] LABS: ALANINE AMINOTRANSFERASE 20 U/L (21-72); ALBUMIN 3.3 g/dL (3.5-5.0); ALKALINE PHOSPHATASE 61 U/L (38-126); ANION GAP 6 (5-19); ASPARTATE AMINO TRANSFERASE 23 U/L (17-59); BILIRUBIN,DIRECT 0.2 mg/dL (0.0-0.4); BILIRUBIN,TOTAL 0.8 mg/dL (0.2-1.3); BLOOD UREA NITROGEN 13 mg/dL (7-20); CARBON DIOXIDE 28 mmol/L (22-30); CHLORIDE 106 mmol/L (98-107); GLUCOSE 152 mg/dL (75-110); POTASSIUM 4.8 mmol/L (3.6-5.0); SODIUM 139.5 mmol/L (137-145); TOTAL PROTEIN 5.8 g/dL (6.3-8.2)
[2019-03-04] MEDS: INSULIN LISPRO 100 UNIT/ML 3 ML VIAL SUBCUT SCH ×3 (06:53→17:47)
[2019-03-04] MEDS ORDERED: BUPIVACAINE HCL 0.25 % INJ/PF (2.5 MG/1 ML) 30 ML VIAL ONE (09:46)
--- NOTE | 2019-03-04 09:46 | PDOC PROGRESS REPORT ---
Subjective Progress Note for:: 03/04/19 Subjective:: Patient feels fine; no abdominal pain at this time. Reason For Visit: ACUTE CHOLECYSTITIS Physical Exam Vital Signs: Temp Pulse Resp BP Pulse Ox 98.0 F 71 17 139/73 H 97 03/04/19 04:00 03/04/19 04:00 03/04/19 04:00 03/04/19 04:00 03/04/19 04:00 Intake & Output 03/03/19 03/04/19 03/05/19 06:59 06:59 06:59 Intake Total 1000 520 Output Total 2100 Balance 1000 -1580 Weight 79.379 kg 78.6 kg General appearance: PRESENT: no acute distress GI/Abdominal exam: PRESENT: other - Abdomen is benign; minimal tenderness right upper quadrant to deep palpation. No peritoneal signs. Results Laboratory Results: 03/04/19 05:47 03/04/19 05:47 03/03/19 03/04/19 03/04/19 13:13 05:47 05:47 WBC 6.7 RBC 4.08 L Hgb 12.7 L Hct 36.3 L MCV 89 MCH 31.0 MCHC 34.9 RDW 13.8 Plt Count 169 Seg Neutrophils % 71.4 Lymphocytes % 16.6 Monocytes % 9.3 Eosinophils % 2.3 Basophils % 0.4 Absolute Neutrophils 4.8 Absolute Lymphocytes 1.1 Absolute Monocytes 0.6 Absolute Eosinophils 0.2 Absolute Basophils 0.0 Sodium 139.5 Potassium 4.8 Chloride 106 Carbon Dioxide 28 Anion Gap 6 BUN 13 Creatinine 1.11 Est GFR ( Amer) > 60 Est GFR (Non-Af Amer) > 60 Glucose 152 H Calcium 9.0 Total Bilirubin 0.8 AST 23 ALT 20 L Alkaline Phosphatase 61 Total Protein 5.8 L Albumin 3.3 L Blood Type B POSITIVE Antibody Screen NEGATIVE 03/03/19 04:25 Troponin I < 0.012 Impressions: Abdomen/Pelvis CT 03/03/19 00:00 IMPRESSION: Distended gallbladder with gallbladder wall thickening by CT and trace pericholecystic fluid. Multiple stones are present in the gallbladder, findings are worrisome for acute cholecystitis. Assessment & Plan - Diagnosis (1) Abdominal pain, right upper quadrant Is this a current diagnosis for this admission?: Yes Plan: Impression: Acute cholecystitis with cholelithiasis and 78-year-old white male with history of coronary artery disease, hyperlipidemia, diabetes mellitus; patient stabilized clinically; post cardiac evaluation demonstrating low to moderate risk for perioperative myocardial events. Recommendations: 1. Proceed with laparoscopic, possible open cholecystectomy with Dr. Mack, 1 hour, possible drain. Risk benefits alternatives of planned procedure explained the patient. I believe he understands and agrees to proceed.
[2019-03-04] MEDS ORDERED: NEOSTIGMINE METHYLSULFATE 10 MG/10 ML VIAL ONE (10:50)
[2019-03-04] MEDS ORDERED: METOCLOPRAMIDE HCL INJ/PF 10 MG/2 ML SDV ONE (10:50)
[2019-03-04] MEDS ORDERED: ROCURONIUM BROMIDE INJ 50 MG/5 ML VIAL IV ONE (10:50)
[2019-03-04] MEDS ORDERED: ONDANSETRON HCL INJ/PF 4 MG/2 ML SDV ONE ×2 (10:50→13:39)
[2019-03-04] MEDS ORDERED: LIDOCAINE 2% INJ-PF (20 MG/ML) 2 ML AMPUL ONE (10:50)
[2019-03-04] MEDS ORDERED: GLYCOPYRROLATE 1 MG/5 ML VIAL ONE (10:50)
[2019-03-04] MEDS ORDERED: FENTANYL CITRATE INJ/PF 100 MCG/2 ML AMPUL ONE (11:19)
[2019-03-04] MEDS ORDERED: MIDAZOLAM 2 MG/2 ML INJ ONE (11:19)
[2019-03-04] MEDS ORDERED: PROPOFOL INJ 200 MG/20 ML VIAL IV ONE (11:19)
[2019-03-04] MEDS ORDERED: DIPHENHYDRAMINE HCL 50 MG/ML VIAL IV PRN (12:18)
[2019-03-04] MEDS ORDERED: FENTANYL CITRATE INJ/PF 100 MCG/2 ML AMPUL IV PRN ×3 (12:18)
[2019-03-04] MEDS ORDERED: PROMETHAZINE HCL INJ 25 MG/1 ML VIAL IV PRN ×2 (12:18)
[2019-03-04] MEDS ORDERED: OXYCODONE-ACETAMINOPHEN 5-325 MG TABLET PO PRN (12:18)
[2019-03-04] MEDS ORDERED: MEPERIDINE HCL/PF INJ 25 MG/1 ML DISP.SYRIN IV PRN (12:18)
[2019-03-04] MEDS ORDERED: ONDANSETRON HCL INJ/PF 4 MG/2 ML SDV IV PRN ×2 (12:18→14:30)
[2019-03-04] MEDS: PANTOPRAZOLE SODIUM 40 MG VIAL IV SCH (12:19)
--- NOTE | 2019-03-04 13:03 | Operative Report ---
Operative Report DATE OF SURGERY: 03/04/19 PREOPERATIVE DIAGNOSIS: Acute cholecystitis with cholelithiasis POSTOPERATIVE DIAGNOSIS: Same OPERATION: Laparoscopic cholecystectomy SURGEON: SALMA ARIAS ANESTHESIA: GA TISSUE REMOVED OR ALTERED: Gallbladder with stones COMPLICATIONS: None ESTIMATED BLOOD LOSS: 125 cc INTRAOPERATIVE FINDINGS: See below PROCEDURE: After obtaining informed consent, the patient was taken to the operating room. General Anesthesia was induced; the arms were extended, and the abdomen was exposed, and prepped and draped in a sterile fashion. Instrumentation was set up for laparoscopic cholecystectomy. Surgical plan and surgical timeout were conducted. A vertical incision was made above the umbilicus, and a verres needle was inserted uneventfully into the peritoneal cavity. Pneumoperitoneum was established. The verres needle was removed and a 5 mm trocar was inserted and a 5 mm flexible laparoscope was inserted. Visualization of the peritoneal cavity confirmed safe uneventful entry. Under direct visualization 3 additional 5 mm ports were est ablished, one in the subxiphoid position and second in the subcostal position. Findings were significant for light bilious fluid in the right upper quadrant, and the duodenal ligament adhesed to the inferior surface of the gallbladder, as well as portions of the greater omentum. Using hook cautery dissection as well as blunt and suction dissection, all adhesions were taken down very carefully under direct visualization. Visualization of the hepatobiliary anatomy revealed no anatomic variations. The gallbladder was aspirated of approximately 100 cc of dark bile. A grasper was placed on the fundus of the gallbladder and the gallbladder is elevated over the right surface of the liver; a second grasper was used to grasp the infundibulum of the gallbladder. The neck of the gallbladder and junction with the cystic duct was dissected out. The Cystic artery was in its usual location medial and cephalad to the cystic duct. It was associated with an enlarged node of Calot low. The cystic artery was surrounded with a right angle clamp, clipped twice proximally and divided with laparoscopic scissors. Of note, on the lateral side of the neck of the gallbladder was a small arterial bleeder which was handled by cautery. We now opened the triangle of [place]ot by dividing the peritoneal reflection on both the medial and lateral sides of the cystic duct infundibular junction. The critical view was obtained. It was retaken. We now milked the cystic duct of any possible stones, clipped the cystic duct approximately 2 times once distally and divided with scissors. The gallbladder was now removed from the undersurface of the liver using hook cautery dissection. Mild to moderate bed due to the significant edema, and adhesions. Graspers were repositioned and the gallbladder was based in an Endobag, removed uneventfully from the abdominal cavity through the super umbilical port site incision. The specimen was examined, then passed off to pathology for permanent analysis. We returned to the peritoneal cavity and found some minimal oozing from the raw liver bed and this was handled with 3 narrow strips of Surgicel. The bleeding abated. Clot around the liver, around the right lobe, was aspirated. There is no evidence of bile leak; we checked the clip position carefully. We Confirmed satisfactory placement of clips on cystic duct and cystic artery were secured . At this point we felt the operation was complete. The subcutaneous tissue was then anesthetized with quarter percent Marcaine Sponge and needle counts are correct. All ports removed under direct visualization pneumoperitoneum evacuated, the supraumbilical port site fascial defect was closed with 2 [id number] 0 Vicryl sutures, and 5 mm port wounds closed with 3-0 Vicryl suture, benzoin and Steri-Strips. The patient was extubated, and taken to the recovery room in stable condition.
[2019-03-04] MEDS ORDERED: KETOROLAC TROMETHAMINE 10 MG TABLET PO PRN (13:04)
[2019-03-04] MEDS ORDERED: PROMETHAZINE HCL INJ 25 MG/1 ML VIAL ONE (13:47)
[2019-03-04] MEDS ORDERED: MEPERIDINE HCL/PF INJ 25 MG/1 ML DISP.SYRIN ONE (13:53)
--- NOTE | 2019-03-04 17:20 | PDOC PROGRESS REPORT ---
Subjective Progress Note for:: 03/04/19 Subjective:: AKILAH GODFREY is a 78 year old male with a PMH of DM 2, hypertension, hyperlipidemia, GERD and CAD with prior stenting who presented with epigastric pain which started 3 days ago. Patient was found to have cholecystitis with multiple gallbladder stones. He was admitted by surgery for possible cholecystectomy tomorrow. Hospitalist service was consulted for medical co-management. No acute event overnight. Patient just got back from the OR and had laparosc opic cholecystectomy. He is slightly sedated and was reported to be a little lethargic after a dose of Phenergan. He is easily arousable and is well oriented upon examination. He denies any acute complaints. Blood sugars are well controlled. Blood pressures are running in the 140-1 50 systolic. Reason For Visit: ACUTE CHOLECYSTITIS Physical Exam Vital Signs: Temp Pulse Resp BP Pulse Ox 97.6 F 55 L 11 L 120/62 96 03/04/19 14:13 03/04/19 14:13 03/04/19 14:13 03/04/19 14:13 03/04/19 14:13 Intake & Output 03/03/19 03/04/19 03/05/19 06:59 06:59 06:59 Intake Total 3759 132 6123 Output Total 2100 100 Balance 1000 -1580 2600 Weight 175 lb 173 lb 4.533 oz General appearance: PRESENT: no acute distress, well-developed, well-nourished Head exam: PRESENT: atraumatic, normocephalic Eye exam: PRESENT: conjunctiva pink, EOMI, PERRLA. ABSENT: scleral icterus Ear exam: PRESENT: normal external ear exam Mouth exam: PRESENT: moist, tongue midline Neck exam: ABSENT: carotid bruit, JVD, lymphadenopathy, thyromegaly Respiratory exam: PRESENT: clear to auscultation darian. ABSENT: rales, rhonchi, wheezes Cardiovascular exam: PRESENT: RRR. ABSENT: diastolic murmur, rubs, systolic murmur Pulses: PRESENT: normal dorsalis pedis pul GI/Abdominal exam: PRESENT: normal bowel sounds, soft. ABSENT: distended, guarding, mass, organolmegaly, rebound, tenderness Rectal exam: PRESENT: deferred Neurological exam: PRESENT: alert, awake, oriented to person, oriented to place, oriented to time, oriented to situation, CN II-XII grossly intact. ABSENT: motor sensory deficit Results Laboratory Results: 03/04/19 05:47 03/04/19 05:47 03/04/19 03/04/19 05:47 05:47 WBC 6.7 RBC 4.08 L Hgb 12.7 L Hct 36.3 L MCV 89 MCH 31.0 MCHC 34.9 RDW 13.8 Plt Count 169 Seg Neutrophils % 71.4 Lymphocytes % 16.6 Monocytes % 9.3 Eosinophils % 2.3 Basophils % 0.4 Absolute Neutrophils 4.8 Absolute Lymphocytes 1.1 Absolute Monocytes 0.6 Absolute Eosinophils 0.2 Absolute Basophils 0.0 Sodium 139.5 Potassium 4.8 Chloride 106 Carbon Dioxide 28 Anion Gap 6 BUN 13 Creatinine 1.11 Est GFR ( Amer) > 60 Est GFR (Non-Af Amer) > 60 Glucose 152 H Calcium 9.0 Total Bilirubin 0.8 AST 23 ALT 20 L Alkaline Phosphatase 61 Total Protein 5.8 L Albumin 3.3 L 03/03/19 04:25 Troponin I < 0.012 Impressions: Abdomen/Pelvis CT 03/03/19 00:00 IMPRESSION: Distended gallbladder with gallbladder wall thickening by CT and trace pericholecystic fluid. Multiple stones are present in the gallbladder, findings are worrisome for acute cholecystitis. Assessment and Plan - Diagnosis (1) Acute cholecystitis Is this a current diagnosis for this admission?: Yes Plan: S/P laparoscopic cholecystectomy. (2) HTN (hypertension) Is this a current diagnosis for this admission?: Yes Plan: On Hydralazine prn. Resume home medications once diet is advanced by surgery. (3) Coronary artery disease Qualifiers: Coronary Disease-Associated Artery/Lesion type: [place] artery [place] vs. transplanted heart: [place] heart Associated angina: without angina Qualified Code(s): I25.10 - Atherosclerotic heart disease of [place] coronary artery without angina pectoris Is this a current diagnosis for this admission?: Yes Plan: Resume aspirin once cleared by primary service. (4) Diabetes mellitus type 2 in nonobese Is this a current diagnosis for this admission?: Yes Plan: Sugars at goal. On sliding scale coverage. A1c at 7.2. - Time Time Spent with patient: 15-24 minutes
--- NOTE | 2019-03-04 22:41 | Progress Note ---
Provider Note Provider Note: CARDIOLOGY PROGRESS NOTE by Dr. Terrie Ellis on 03/04/2019. SUBJECTIVE: The patient had uneventful cholecystectomy. His pain is well controlled on current medication. He denies any chest pain or discomfort. There is no shortness of breath. There is no PND orthopnea. There is no palpitations. There is no TIA CVA symptoms. There is no leg edema PHYSICAL EXAMINATION: The patient is well-built and well-nourished. In no acute distress Selected Entries 03/04/19 17:14 Temperature 97.6 F Temperature Oral Source Pulse Rate 89 Respiratory 18 Rate Blood Pressure 158/70 H Blood Pressure 99 Mean BP Location Left Arm BP Position Supine O2 Sat by Pulse 96 Oximetry Oxygen Delivery Room Air Method HEAD: Is atraumatic normocephalic. EYES: Pupils are equal round regular reactive to light accommodation. Extraocular movements are normal. There is no conjunctival pallor. There is no scleral icterus. NOSE: There is no deviated nasal septum. There is no inflammation of the nasal mucous membrane. MOUTH: Mucous membranes of mouth are moist. Tongue is moist. There is no ulcers. There is no bleeding from the gums. THROAT: There is no redness of the oropharynx. There is no exudates. SKIN: There is no skin rashes or skin lesions. There is no particular ecchymosis. NECK: Is supple. There is no JVD. Carotids are equal there is no bruit. There is no lymphadenopathy. There is no goiter. There is no accessory muscles of respiration use. Trachea central. LUNGS: Is clear to auscultation percussion. Without any rhonchi rales or wheezing. HEART: S1-S2 is heard. There is no S3 gallop. There is no S4 gallop. There is systolic murmur in the left sternal border and the apex. There is no rub. ABDOMEN: There is no hepatospleno megaly. Surgical dressing is dry and clean. Bowel sounds are normal. There is no rebound guarding or rigidity. EXTREMITIES: Femorals are well felt. There is no femoral bruits. Leg pulses are well felt. There is no pedal edema. There is no DVT or cellulitis. There is no calf tenderness. There is no cyanosis or clubbing. BULL FLOAT FINISHER: The patient is conscious awake alert oriented x3 with no focal deficits. PSYCHIATRIC: The patient judgment insight are intact her affect is normal. Labs- All tests 24 hr 03/04/19 03/04/19 03/04/19 05:47 05:47 10:02 WBC 6.7 RBC 4.08 L Hgb 12.7 L Hct 36.3 L MCV 89 MCH 31.0 MCHC 34.9 RDW 13.8 Plt Count 169 Seg Neutrophils % 71.4 Lymphocytes % 16.6 Monocytes % 9.3 Eosinophils % 2.3 Basophils % 0.4 Absolute Neutrophils 4.8 Absolute Lymphocytes 1.1 Absolute Monocytes 0.6 Absolute Eosinophils 0.2 Absolute Basophils 0.0 Sodium 139.5 Potassium 4.8 Chloride 106 Carbon Dioxide 28 Anion Gap 6 BUN 13 Creatinine 1.11 Est GFR ( Amer) > 60 Est GFR (Non-Af Amer) > 60 Glucose 152 H POC Glucose 117 H Calcium 9.0 Total Bilirubin 0.8 Direct Bilirubin 0.2 Neonat Total Bilirubin Not Reportable Neonat Direct Bilirubin Not Reportable Neonat Indirect Bili Not Reportable AST 23 ALT 20 L Alkaline Phosphatase 61 Total Protein 5.8 L Albumin 3.3 L 03/04/19 03/04/19 03/04/19 13:32 17:44 21:04 WBC RBC Hgb Hct MCV MCH MCHC RDW Plt Count Seg Neutrophils % Lymphocytes % Monocytes % Eosinophils % Basophils % Absolute Neutrophils Absolute Lymphocytes Absolute Monocytes Absolute Eosinophils Absolute Basophils Sodium Potassium Chloride Carbon Dioxide Anion Gap BUN Creatinine Est GFR ( Amer) Est GFR (Non-Af Amer) Glucose POC Glucose 108 124 H 164 H Calcium Total Bilirubin Direct Bilirubin Neonat Total Bilirubin Neonat Direct Bilirubin Neonat Indirect Bili AST ALT Alkaline Phosphatase Total Protein Albumin Abdomen/Pelvis CT 03/03/19 00:00 IMPRESSION: Distended gallbladder with gallbladder wall thickening by CT and trace pericholecystic fluid. Multiple stones are present in the gallbladder, findings are worrisome for acute cholecystitis. IMPRESSION/RECOMMENDATION: 1. Acute cholecystitis with cholelithiasis. Status post cholecystectomy. Patient postoperatively stable. 2. Coronary artery disease: No anginal symptoms, and no acute changes on the EKG. His CAD seems to be very stable. We will check EKG and troponin in the morning. 3. Hypertension: Blood pressure slightly elevated due to the pain due from his gallbladder disease. 4. Diabetes mellitus: Continue antidiabetic treatment. Continue Accu-Cheks. 5. Hyperlipidemia: Continue statins. Medications reviewed. Medical decision making is of moderate complexity. Management plan discussed with other caregiving providers on the case. 40 minutes spent in this patient with more than 50% of time spent in direct patient care. Will follow
[2019-03-05] MEDS: PIPERACILLIN SODIUM/TAZOBACTAM 3.375 GM in NORMAL SALINE 100 ML IV SCH ×2 (05:56→12:07)
[2019-03-05] MEDS: INSULIN LISPRO 100 UNIT/ML 3 ML VIAL SUBCUT SCH ×2 (09:11→12:06)
[2019-03-05] MEDS: PANTOPRAZOLE SODIUM 40 MG VIAL IV SCH (09:14)
--- NOTE | 2019-03-05 10:23 | PDOC PROGRESS REPORT ---
Subjective Progress Note for:: 03/05/19 Subjective:: Feels well. No complaints Reason For Visit: ACUTE CHOLECYSTITIS Physical Exam Vital Signs: Temp Pulse Resp BP Pulse Ox 97.3 F 70 18 122/65 96 03/05/19 03:49 03/05/19 07:00 03/05/19 03:49 03/05/19 03:49 03/05/19 03:49 Intake & Output 03/04/19 03/05/19 03/06/19 06:59 06:59 06:59 Intake Total 520 3634 Output Total 2100 600 Balance -1580 3034 Weight 78.6 kg 78.6 kg General appearance: PRESENT: no acute distress, cooperative Respiratory exam: PRESENT: clear to auscultation darian Cardiovascular exam: PRESENT: RRR GI/Abdominal exam: PRESENT: other - Soft, nondistended, minimal tenderness. Wounds are clean dry and intact Extremities exam: PRESENT: other - No swelling and no tenderness Results Laboratory Results: 03/04/19 05:47 03/04/19 05:47 03/03/19 03/05/19 04:25 00:46 Troponin I < 0.012 0.015 Impressions: Abdomen/Pelvis CT 03/03/19 00:00 IMPRESSION: Distended gallbladder with gallbladder wall thickening by CT and trace pericholecystic fluid. Multiple stones are present in the gallbladder, findings are worrisome for acute cholecystitis. Assessment & Plan - Diagnosis (1) Acute cholecystitis Is this a current diagnosis for this admission?: Yes Plan: Status post laparoscopic cholecystectomy. Patient doing well. Will discharge patient home.
[2019-03-05 10:45] VITALS: BP 145/65
--- NOTE | 2019-03-05 11:24 | EKG REPORT ---
SEVERITY:- NORMAL ECG - SINUS RHYTHM : Confirmed by: Terrie Ellis MD 05-Mar-2019 11:23:49
--- NOTE | 2019-03-05 21:55 | Progress Note ---
Provider Note Provider Note: CARDIOLOGY PROGRESS NOTE by Dr. Terrie Ellis on 03/05/2019 SUBJECTIVE: The patient denies any chest pain or discomfort. He has no nausea vomiting. He had a bowel movement. There is no palpitations. There is no PND orthopnea or shortness of breath. His cardiac status is very stable. PHYSICAL EXAMINATION: The patient is well-built and well-nourished. In no acute distress. Selected Entries 03/05/19 03/05/19 08:41 10:42 Temperature 97.3 F Pulse Rate 70 Respiratory 18 Rate Blood Pressure 122/65 [Right 1] O2 Sat by Pulse 96 Oximetry Oxygen Delivery Room Air Method ( includes room air) HEAD: Is atraumatic normocephalic. EYES: Pupils are equal round regular reactive to light accommodation. Extraocular movements are normal. There is no conjunctival pallor. There is no scleral icterus. NOSE: There is no deviated nasal septum. There is no inflammation of the nasal mucous membrane. MOUTH: Mucous membranes of mouth are moist. Tongue is moist. There is no ulcers. There is no bleeding from the gums. THROAT: There is no redness of the oropha rynx. There is no exudates. SKIN: There is no skin rashes or skin lesions. There is no particular ecchymosis. NECK: Is supple. There is no JVD. Carotids are equal there is no bruit. There is no lymphadenopathy. There is no goiter. There is no accessory muscles of respiration use. Trachea central. LUNGS: Is clear to auscultation percussion. Without any rhonchi rales or wheezing. HEART: S1-S2 is heard. There is no S3 gallop. There is no S4 gallop. There is systolic murmur in the left sternal border and the apex. There is no rub. ABDOMEN: There is no hepatospleno megaly. Surgical dressing is dry and clean. Bowel sounds are normal. There is no rebound guarding or rigidity. EXTREMITIES: Femorals are well felt. There is no femoral bruits. Leg pulses are well felt. There is no pedal edema. There is no DVT or cellulitis. There is no calf tenderness. There is no cyanosis or clubbing. COMPUTATIONAL CHEMIST: The patient is conscious awake alert oriented x3 with no focal deficits. PSYCHIATRIC: The patient judgment insight are intact her affect is normal. Labs- All tests 24 hr 03/05/19 03/05/19 00:46 06:19 POC Glucose 138 H Troponin I 0.015 EKG: Sinus rhythm. Within normal limits. IMPRESSION/RECOMMENDATION: 1. Acute cholecystitis with cholelithiasis. Status post cholecystectomy. Patient postoperatively stable. 2. Coronary artery disease: No anginal symptoms, and no acute changes on the EKG. His CAD seems to be very stable. We will check EKG and troponin in the morning. 3. Hypertension: Blood pressure slightly elevated due to the pain due from his gallbladder disease. 4. Diabetes mellitus: Continue antidiabetic treatment. Continue Accu-Cheks. 5. Hyperlipidemia: Continue statins. MEDICATIONS reviewed. Management plan discussed with attending physician on the case. EKG findings and troponin results were discussed with the patient. Patient cardiac status is stable. Will have patient follow-up with me in the office since his desires to follow-up with me for his cardiology needs. Medical decision making is of moderate complexity. Cardiac status is stable will sign off.
--- NOTE | 2019-03-08 08:25 | DISCHARGE SUMMARY E ---
Discharge Summary NAME: AKILAH GODFREY : 1940 AGE: 78Y ADMITTED: 03/03/2019 DISCHARGED: 03/05/2019 DISCHARGE DIAGNOSES: 1. Acute cholecystitis. 2. Diabetes. 3. Coronary artery disease. 4. COPD. PROCEDURE PERFORMED DURING HOSPITALIZATION: Laparoscopic cholecystectomy performed by Dr. Mack on 03/04/2019. HOSPITAL COURSE: The patient was initially admitted. He was subsequently taken to the operating room where he underwent laparoscopic cholecystectomy. The patient did well postoperatively, was feeling well at the time of discharge, and was tolerating a diet well. The patient is now being discharged to home in good condition. He is encouraged to stay active and avoid strenuous activity. He may follow a diabetic diet. He is to resume his home medications. He may take Tylenol 1 p.o. q. 4 hours p.r.n. pain. He is to follow up at [facility] on 03/19/2019. He is to call for any problems. DICTATING PHYSICIAN: CHARLI ADAMS M.D. [id number] PHY#: [id number] ID: [id number] JOB#: [id number] ACCT: [id number] cc:Basim OLIVER PA >
== END 2019-03-05 13:00 | disposition home or self-care (01) ==
LOC: ER 02:58 → EH 12:06 → 4S 16:54
PROVIDERS: ATTEND Surgery
PROC: 0FT44ZZ Resection of Gallbladder, Percutaneous Endoscopic Approach (ICD-10-PCS; principal; 2019-03-04 10:15)
DX: K80.12 Calculus of gallbladder with acute and chronic cholecystitis without obstruction (principal); E11.9 Type 2 diabetes mellitus without complications; I25.10 Atherosclerotic heart disease of native coronary artery without angina pectoris; J44.9 Chronic obstructive pulmonary disease, unspecified; I10 Essential (primary) hypertension; E78.5 Hyperlipidemia, unspecified; K21.9 Gastro-esophageal reflux disease without esophagitis; R53.1 Weakness; R63.0 Anorexia; Z95.5 Presence of coronary angioplasty implant and graft; Z79.82 Long term (current) use of aspirin; Z82.49 Family history of ischemic heart disease and other diseases of the circulatory system; Z87.891 Personal history of nicotine dependence; Z79.84 Long term (current) use of oral hypoglycemic drugs; Z01.810 Encounter for preprocedural cardiovascular examination
CPT/HCPCS: 93005 ×2; 99285; 96361; 96374; 96375; 86900; 86901; 36415 ×3; 86850; 82962 ×3; 83605; 83690; 85025 ×2; 80053 ×2; 81001; 84484 ×2; 83036; 88304 ×2; 93306; 74177; 93010 ×2; 00790; 47562; G0378 ×3; J2250; J3490 ×3; J3010; J2175; J2765; J2270; J2710; C9113 ×2; J2550; J2405 ×2; J7050 ×3; J7030; A9270; J2704; J2543 ×3; 790; S0164

== ENCOUNTER 2019-03-12 11:40 | Emergency (ER) | payer MEDICARE ==
[2019-03-12 11:59] VITALS: BP 128/63
--- NOTE | 2019-03-12 12:30 | ER Document Report ---
ED Medical Screen (RME) - General Chief Complaint: Epigastric Pain Stated Complaint: ABDOMINAL PAIN Time Seen by Provider: 03/12/19 12:17 Primary Care Provider: KARYN LEIJA MD [Primary Care Provider] - Follow up as needed Mode of Arrival: Ambulatory Information source: Patient Notes: This 78-year-old male presents emergency department via EMS for severe abdominal pain. Patient reports he had his gallbladder removed here at [facility] on March 04. He reports he was driving to [place] today when he had such severe abdominal pain like a sharp plant control operator knife in the middle of his stomach that he had to seat cover maker and called EMS. He points to his surgical incision as site where pain was. Pain is gone now. Reports it felt like a marble underneath it. Does not feel like it has a marble now. He denies other symptoms such as vomiting or diarrhea or fever. He denies chest pain. Denies shortness of breath. Reports he feels better since his gave him 4 baby aspirin. She has a history of cardiac disease with 2 stents placed. He also has a history of a collapsed lung. Patient denies pain at this time reports his stomach is a little bit sore to touch. Respiratory rate even unlabored patient is in no distress. I have greeted and performed a rapid initial assessment of this patient. A comprehensive ED assessment and evaluation of the patient, analysis of test results and completion of the medical decision making process will be conducted by additional ED providers. Dictation of this chart was performed using voice recognition software; therefore, there may be some unintended grammatical errors. TRAVEL OUTSIDE OF THE [place] IN LAST 30 DAYS: No - Related Data Allergies/Adverse Reactions: No Known Allergies Allergy (Verified 03/12/19 11:40) Past Medical History - Past Medical History Cardiac Medical History: Reports: Hx Coronary Artery Disease, Hx Hypercholesterolemia, Hx Hypertension Pulmonary Medical History: Reports: Hx COPD Endocrine Medical History: Reports: Hx Diabetes Mellitus Type 2 Renal/ Medical History: Denies: Hx Peritoneal Dialysis GI Medical History: Reports: Hx Gastroesophageal Reflux Disease Psychiatric Medical History: Denies: Hx Depression Past Surgical History: Reports: Hx Cardiac Surgery - one stent, Hx Coronary Stent - Immunizations Immunizations up to date: Yes Hx Diphtheria, Pertussis, Tetanus Vaccination: Yes Physical Exam - Vital signs Vitals: Temp Pulse Resp BP Pulse Ox 97.5 F 87 21 H 128/63 H 98 03/12/19 11:57 03/12/19 11:57 03/12/19 11:57 03/12/19 11:57 03/12/19 11:57 Course - Vital Signs Vital signs: Temp Pulse Resp BP Pulse Ox 97.5 F 87 21 H 128/63 H 98 03/12/19 11:57 03/12/19 11:57 03/12/19 11:57 03/12/19 11:57 03/12/19 11:57 Doctor's Discharge - Discharge Referrals: KARYN LEIJA MD [Primary Care Provider] - Follow up as needed
[2019-03-12 12:52] LABS: ABSOLUTE EOSINOPHILS # (AUTO) 0.1 10^3/uL (0.0-0.6); ABSOLUTE LYMPHOCYTES (AUTO) 0.8 10^3/uL (0.5-4.7); ABSOLUTE MONOCYTES (AUTO) 0.5 10^3/uL (0.1-1.4); ABSOLUTE NEUT (AUTO) 7.8 10^3/uL (1.7-8.2); BASOPHILS % (AUTO) 0.5 % (0-2); EOSINOPHILS % (AUTO) 1.5 % (0-6); HEMATOCRIT 36.7 % (37.9-51.0); HEMOGLOBIN 12.5 g/dL (13.5-17.0); LYMPHOCYTES % (AUTO) 9.1 % (13-45); MEAN CORPUSCULAR HEMOGLOBIN 30.5 pg (27.0-33.4); MEAN CORPUSCULAR VOLUME 90 fl (80-97); MONOCYTES % (AUTO) 5.1 % (3-13); PLATELET COUNT 277 10^3/uL (150-450); RED BLOOD COUNT 4.09 10^6/uL (4.35-5.55); SEGMENTED NEUTROPHILS % (AUTO) 83.8 % (42-78); TOTAL CELLS COUNTED % (AUTO) 100 %; WHITE BLOOD COUNT 9.3 10^3/uL (4.0-10.5)
[2019-03-12 13:11] LABS: ALANINE AMINOTRANSFERASE 72 U/L (21-72); ALKALINE PHOSPHATASE 90 U/L (38-126); AMYLASE 50 U/L (30-110); ANION GAP 7 (5-19); ASPARTATE AMINO TRANSFERASE 160 U/L (17-59); BILIRUBIN,DIRECT 0.6 mg/dL (0.0-0.4); BILIRUBIN,TOTAL 1.1 mg/dL (0.2-1.3); BLOOD UREA NITROGEN 25 mg/dL (7-20); CALCIUM 9.3 mg/dL (8.4-10.2); CARBON DIOXIDE 26 mmol/L (22-30); CHLORIDE 100 mmol/L (98-107); CREATINE KINASE 60 U/L (55-170); GLUCOSE 260 mg/dL (75-110); LIPASE 45.2 U/L (23-300); POTASSIUM 4.9 mmol/L (3.6-5.0); SODIUM 133.4 mmol/L (137-145); TOTAL PROTEIN 6.6 g/dL (6.3-8.2)
--- NOTE | 2019-03-12 14:05 | ER Document Report ---
ED General - General Chief Complaint: Epigastric Pain Stated Complaint: ABDOMINAL PAIN Time Seen by Provider: 03/12/19 12:17 Primary Care Provider: KARYN LEIJA MD [Primary Care Provider] - Follow up as needed Mode of Arrival: Ambulatory Information source: Patient Notes: This 78-year-old male presents emergency department via EMS for severe abdominal pain. Patient reports he had his gallbladder removed here at [facility] on March 04. 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 He points to his surgical inci jennifer as site where pain was. Pain is gone now. Reports it felt like a marble underneath it. Does not feel like it has a marble now. He denies other symptoms such as vomiting or diarrhea or fever. He denies chest pain. Denies shortness of breath. Reports he feels better since his gave him 4 baby aspirin. She has a history of cardiac disease with 2 stents placed. He also has a history of a collapsed lung. Patient denies pain at this time reports his stomach is a little bit sore to touch. Respiratory rate even unlabored patient is in no distress. TRAVEL OUTSIDE OF THE [place] IN LAST 30 DAYS: No - HPI Onset: Just prior to arrival Onset/Duration: Sudden, Gone - gone now Quality of pain: No pain Associated symptoms: None Exacerbated by: Denies Relieved by: Denies Similar symptoms previously: No Recently seen / treated by doctor: No - Related Data Allergies/Adverse Reactions: No Known Allergies Allergy (Verified 03/12/19 11:40) Past Medical History - General Information source: Patient - Social History Smoking Status: Smoker,Current Status Unk Cigarette use (# per day): No Lives with: Friend Family History: CAD, Malignancy Patient has suicidal ideation: No Patient has homicidal ideation: No - Past Medical History Cardiac Medical History: Reports: Hx Coronary Artery Disease, Hx Hypercholesterolemia, Hx Hypertension Pulmonary Medical History: Reports: Hx COPD Endocrine Medical History: Reports: Hx Diabetes Mellitus Type 2 Renal/ Medical History: Denies: Hx Peritoneal Dialysis GI Medical History: Reports: Hx Gastroesophageal Reflux Disease Psychiatric Medical History: Denies: Hx Depression Past Surgical History: Reports: Hx Cardiac Surgery - one stent, Hx Ch olecystectomy, Hx Coronary Stent, Hx Orthopedic Surgery - Immunizations Immunizations up to date: Yes Hx Diphtheria, Pertussis, Tetanus Vaccination: Yes Review of Systems - Review of Systems Notes: Review HPI for review of systems., All other systems negative Physical Exam - Vital signs Vitals: Temp Pulse Resp BP Pulse Ox 97.5 F 87 21 H 128/63 H 98 03/12/19 11:57 03/12/19 11:57 03/12/19 11:57 03/12/19 11:57 03/12/19 11:57 - Notes Notes: PHYSICAL EXAMINATION: GENERAL: No distress, nontoxic looking HEAD: Atraumatic, normocephalic. EYES: extraocular movements intact, sclera anicteric, conjunctiva are normal. ENT: nares patent, Moist mucous membranes. NECK: Normal range of motion, supple without lymphadenopathy LUNGS: CTAB and equal. No wheezes rales or rhonchi. HEART: Regular rate ABDOMEN: Soft, no tenderness. No guarding, no rebound surgical site benign, no erythema, no swelling, no warmth EXTREMITIES: Normal range of motion, no pitting edema. No cyanosis. NEUROLOGICAL: Cranial nerves grossly intact. Normal sensory/motor exams. PSYCH: Normal mood, normal affect. SKIN: Warm, Dry, normal turgor, no rashes or lesions noted Course - Re-evaluation Re-evalutation: 03/12/19 14:04 This 78-year-old male that presented to the emergency department with severe abdominal pain that was cured after 4 baby aspirins is requesting to leave. I discussed the labs with patient and his . He reports he feels better and is requesting to leave. He denied chest pain shortness of breath he denies abdominal pain at this time. Reports he is voiding last bowel movement was yesterday without problems. 03/12/19 19:18 Patient reported he wanted to leave. He is not hurting. Reports pain went away after he received 4 baby asa from his girlfriend. All labs discussed. He was instructed to monitor the surgical site for s/s infection and follow-up with surgeon as scheduled. He verbalized understanding to all instructions. Dictation of this chart was performed using voice recognition software; therefore, there may be some unintended grammatical errors. 03/12/19 12:36 03/12/19 12:36 MCV 90 fl (80-97) 03/12/19 12:36 MCH 30.5 pg (27.0-33.4) 03/12/19 12:36 MCHC 34.0 g/dL (32.0-36.0) 03/12/19 12:36 RDW 13.0 % (11.5-14.0) 03/12/19 12:36 Seg Neutrophils % 83.8 % (42-78) H 03/12/19 12:36 Lymphocytes % 9.1 % (13-45) L 03/12/19 12:36 Monocytes % 5.1 % (3-13) 03/12/19 12:36 Eosinophils % 1.5 % (0-6) 03/12/19 12:36 Basophils % 0.5 % (0-2) 03/12/19 12:36 Absolute Neutrophils 7.8 10^3/uL (1.7-8.2) 03/12/19 12:36 Absolute Lymphocytes 0.8 10^3/uL (0.5-4.7) 03/12/19 12:36 Absolute Monocytes 0.5 10^3/uL (0.1-1.4) 03/12/19 12:36 Absolute Eosinophils 0.1 10^3/uL (0.0-0.6) 03/12/19 12:36 Absolute Basophils 0.0 10^3/uL (0.0-0.2) 03/12/19 12:36 Chloride 100 mmol/L (98-107) 03/12/19 12:36 Carbon Dioxide 26 mmol/L (22-30) 03/12/19 12:36 Anion Gap 7 (5-19) 03/12/19 12:36 Est GFR ( Amer) > 60 (>60) 03/12/19 12:36 Est GFR (Non-Af Amer) > 60 (>60) 03/12/19 12:36 Glucose 260 mg/dL (75-110) H 03/12/19 12:36 Calcium 9.3 mg/dL (8.4-10.2) 03/12/19 12:36 Total Bilirubin 1.1 mg/dL (0.2-1.3) 03/12/19 12:36 AST 160 U/L (17-59) H 03/12/19 12:36 ALT 72 U/L (21-72) 03/12/19 12:36 Alkaline Phosphatase 90 U/L (38-126) 03/12/19 12:36 Total Protein 6.6 g/dL (6.3-8.2) 03/12/19 12:36 Albumin 4.0 g/dL (3.5-5.0) 03/12/19 12:36 Amylase 50 U/L (30-110) 03/12/19 12:36 Lipase 45.2 U/L (23-300) 03/12/19 12:36 03/12/19 03/12/19 12:36 12:36 Creatine Kinase 60 Troponin I < 0.012 03/12/19 19:19 - Vital Signs Vital signs: Temp Pulse Resp BP Pulse Ox 97.5 F 87 21 H 128/63 H 98 03/12/19 11:57 03/12/19 11:57 03/12/19 11:57 03/12/19 11:57 03/12/19 11:57 - Laboratory Result Diagrams: 03/12/19 12:36 03/12/19 12:36 Laboratory results interpreted by me: 03/12/19 03/12/19 12:36 12:36 RBC 4.09 L Hgb 12.5 L Hct 36.7 L Seg Neutrophils % 83.8 H Lymphocytes % 9.1 L Sodium 133.4 L BUN 25 H Glucose 260 H Direct Bilirubin 0.6 H AST 160 H Discharge - Discharge Clinical Impression: Abdominal pain Qualifiers: Abdominal location: upper abdomen, unspecified Qualified Code(s): R10.10 - Upper abdominal pain, unspecified Condition: Stable Disposition: HOME, SELF-CARE Instructions: Abdominal Pain ([facility]) Additional Instructions: *You have been evaluated for abdominal pain *Follow up with a primary care provider within one week *Return to ED for worsening condition, changes, needs *Return to ED if not better in 24 hours Forms: Elevated Blood Pressure Referrals: KAYRN LEIJA MD [Primary Care Provider] - Follow up as needed
== END 2019-03-12 14:21 | disposition home or self-care (01) ==
LOC: ER 11:40
DX: R10.13 Epigastric pain (principal); I25.10 Atherosclerotic heart disease of native coronary artery without angina pectoris; I10 Essential (primary) hypertension; J44.9 Chronic obstructive pulmonary disease, unspecified; E11.9 Type 2 diabetes mellitus without complications; Z87.19 Personal history of other diseases of the digestive system; Z90.49 Acquired absence of other specified parts of digestive tract; Z95.5 Presence of coronary angioplasty implant and graft
CPT/HCPCS: 36415; 80053; 82150; 82550; 83690; 84484; 85025; 99284

== ENCOUNTER 2020-03-15 09:23 | Observation (INO) | payer MEDICARE ==
[2020-03-15 09:57] LABS: ABSOLUTE BASOPHILS # (AUTO) 0.1 10^3/uL (0.0-0.2); ABSOLUTE EOSINOPHILS # (AUTO) 0.2 10^3/uL (0.0-0.6); ABSOLUTE LYMPHOCYTES (AUTO) 1.1 10^3/uL (0.5-4.7); ABSOLUTE MONOCYTES (AUTO) 0.5 10^3/uL (0.1-1.4); BASOPHILS % (AUTO) 0.6 % (0-2); EOSINOPHILS % (AUTO) 2.2 % (0-6); HEMATOCRIT 39.7 % (37.9-51.0); HEMOGLOBIN 13.9 g/dL (13.5-17.0); LYMPHOCYTES % (AUTO) 12.5 % (13-45); MEAN CORPUSCULAR HEMOGLOBIN 30.1 pg (27.0-33.4); MEAN CORPUSCULAR HGB CONC 35.1 g/dL (32.0-36.0); MEAN CORPUSCULAR VOLUME 86 fl (80-97); MONOCYTES % (AUTO) 5.4 % (3-13); PLATELET COUNT 210 10^3/uL (150-450); RED BLOOD COUNT 4.63 10^6/uL (4.35-5.55); RED CELL DISTRIBUTION WIDTH 13.7 % (11.5-14.0); SEGMENTED NEUTROPHILS % (AUTO) 79.3 % (42-78); TOTAL CELLS COUNTED % (AUTO) 100 %; WHITE BLOOD COUNT 8.9 10^3/uL (4.0-10.5)
[2020-03-15 10:16] LABS: ALBUMIN 4.1 g/dL (3.5-5.0); ALKALINE PHOSPHATASE 83 U/L (38-126); ANION GAP 6 (5-19); ASPARTATE AMINO TRANSFERASE 30 U/L (17-59); BILIRUBIN,TOTAL 0.5 mg/dL (0.2-1.3); BLOOD UREA NITROGEN 32 mg/dL (7-20); CALCIUM 9.3 mg/dL (8.4-10.2); CARBON DIOXIDE 24 mmol/L (22-30); CHLORIDE 103 mmol/L (98-107); CREATINE KINASE 71 U/L (55-170); GLUCOSE 230 mg/dL (75-110); TOTAL PROTEIN 6.9 g/dL (6.3-8.2)
[2020-03-15 10:18] LABS: POTASSIUM 6.4 mmol/L (3.6-5.0)
--- NOTE | 2020-03-15 10:22 | ER Document Report ---
ED General - General Chief Complaint: General Weakness Stated Complaint: GENERAL WEAKNESS Time Seen by Provider: 03/15/20 10:05 Primary Care Provider: KARYN LEIJA MD [Primary Care Provider] - Follow up as needed Notes: 79-year-old man presents to the emergency department with a history of episode at home where he became weak and poorly responsive approximately 830 this morning. He states that he is just taken his medications experienced a severe headache and shortly thereafter unable to stand. Apparently became poorly responsive and weak in his legs. Presently he complains of weakness which is worse on the left side compared to right. There is no speech involvement and he denies visual change with exception of a bright light. He has a history of CAD, stent placement, history of stroke or TIA. He is diabetic, hypertensive, COPD, hypercholesterolemia, and known CAD. He had a head performed in the emergency department is negative for acute hemorrhage or stroke findings. TRAVEL OUTSIDE OF THE [place] IN LAST 30 DAYS: No - Related Data Allergies/Adverse Reactions: Penicillins Allergy (Verified 03/15/20 09:53) Home Medications: carvedilol, donepezil, gabapentin, glipizide, isosorbide, mirtazapine, omeprazole, sertraline Past Medical History - Social History Smoking Status: Never Smoker Frequency of alcohol use: None Drug Abuse: None Family History: CAD, Malignancy - Past Medical History Cardiac Medical History: Reports: Hx Coronary Artery Disease, Hx Hypercholesterolemia, Hx Hypertension Pulmonary Medical History: Reports: Hx COPD Endocrine Medical History: Reports: Hx Diabetes Mellitus Type 2 Renal/ Medical History: Denies: Hx Peritoneal Dialysis GI Medical History: Reports: Hx Gastroesophageal Reflux Disease Psychiatric Medical History: Denies: Hx Depression Past Surgical History: Reports: Hx Cardiac Surgery - one stent, Hx Cholecystectomy, Hx Coronary Stent, Hx Orthopedic Surgery - Immunizations Immunizations up to date: Yes Hx Diphtheria, Pertussis, Tetanus Vaccination: Yes Review of Systems - Review of Systems Notes: Constitutional: + Weakness HENT: Negative for sore throat. Eyes: Negative for visual changes. Cardiovascular: Negative for chest pain. Respiratory: Negative for shortness of breath. Gastrointestinal: Negative for abdominal pain, vomiting or diarrhea. Genitourinary: Negative for dysuria. Musculoskeletal: Negative for back pain. Skin: Negative for rash. Neurological: See HPI 10 point ROS negative except as marked above and in HPI. Physical Exam - Vital signs Vitals: Temp Resp BP Pulse Ox 97.5 F 24 H 105/62 100 03/15/20 09:28 03/15/20 09:28 03/15/20 09:28 03/15/20 09:28 - Notes Notes: PHYSICAL EXAMINATION: Physical Exam: General: Well-nourished well-developed 79-year-old man + anxious HEENT: NC/AT, pupils equal round and reactive to light, MM moist,nares clear, oropharynx clear, airway patent Neck: supple, no adenopathy, no masses. Good range of motion Lungs: clear, no wheezing, no rales no rhonchi CVS: Regular rate and rhythm no murmur gallop or rub Abdomen: Soft, active, nontender, no masses, no hepatosplenomegaly Ext: No edema, clubbing or cyanosis. Neuro: Alert and responsive, diffuse weakness upper and lower extremities, left greater than right Skin: Intact no open lesions, no rash PSYCH: Anxious, tearful at times. Course - Re-evaluation Re-evalutation: 03/15/20 12:49 Patient presents with onset of symptoms at approximately 8:30 AM today. Continued to have diffuse weakness left side greater than right with no speech or visual changes. CT scan of the head was performed, negative for hemorrhage or signs of acute CVA. Upon returning from CT scan the patient's weakness had resolved. He now has 5/5 strength in both left and right lower and upper extremities. He has a history of hypertension, diabetes mellitus, and hypercholesterolemia at age 79, suggested that the patient be admitted to the hospital for further evaluation for possible TIA and stroke risk. The hospitalist Dr. Foreman will admit the patient to the hospital for further evaluation and treatment. - Vital Signs Vital signs: Temp Pulse Resp BP Pulse Ox 97.5 F 58 L 11 L 116/62 100 03/15/20 09:28 03/15/20 10:15 03/15/20 11:30 03/15/20 11:30 03/15/20 11:29 - Laboratory Result Diagrams: 03/15/20 09:43 03/15/20 10:35 Laboratory results interpreted by me: 03/15/20 03/15/20 03/15/20 09:43 09:43 09:53 Lymph % (Auto) 12.5 L Seg Neutrophils % 79.3 H Sodium 132.6 L Potassium 6.4 H* BUN 32 H Creatinine 1.44 H Est GFR ( Amer) 58 L Est GFR (MDRD) Non-Af 48 L Glucose 230 H POC Glucose 201 H 03/15/20 10:35 Lymph % (Auto) Seg Neutrophils % Sodium Potassium 5.4 H D BUN Creatinine Est GFR ( Amer) Est GFR (MDRD) Non-Af Glucose POC Glucose - Diagnostic Test Radiology reviewed: Image reviewed, Reports reviewed Radiology results interpreted by me: 03/15/20 12:52 CT head: No acute intracranial hemorrhage or signs of stroke. - EKG Interpretation by Me EKG shows normal: Sinus rhythm, [place] - All, Intervals - Normal, QRS Complexes - J-point with repolarization abnormality noted, ST-T Waves - No acute ST or T wave abnormalities, no ischemic changes. Rate: Normal - Rate 56 Discharge - Discharge Clinical Impression: Transient ischemic attack (TIA), Near syncope Condition: Good Disposition: ADMITTED INPATIENT Admitting Provider: Kellen (Hospitalist) Unit Admitted: IMCU Referrals: KARYN LEIJA MD [Primary Care Provider] - Follow up as needed
[2020-03-15 10:28] LABS: TROPONIN I < 0.012 ng/mL
--- NOTE | 2020-03-15 10:44 | RADIOLOGY REPORT (SQ) ---
EXAM DESCRIPTION: CT HEAD WITHOUT IMAGES COMPLETED DATE/TIME: 03/15/2020 10:32 am REASON FOR STUDY: stroke like symptoms. COMPARISON: 08/09/2018 TECHNIQUE: Axial images acquired through the brain without intravenous contrast. Images reviewed wi th bone, brain and subdural windows. Additional sagittal and coronal reconstructions were generated. Images stored on PACS. All CT scanners at this facility use dose modulation, iterative reconstruction, and/or weight based d osing when appropriate to reduce radiation dose to as low as reasonably achievable (ALARA). [facility]: Dose Right [facility]: CareDose [facility]: Dose Right [facility]: Teradose 4D [facility]: Smart Livevol RADIATION DOSE: CT Rad equipment meets quality standard of care and radiation dose reduction techniq ues were employed. CTDIvol: 53.2 mGy. DLP: 937 mGy-cm. mGy. LIMITATIONS: None. FINDINGS: VENTRICLES: Prominent. CEREBRUM: No masses. No hemorrhage. No midline shift. Areas of low density in the white matter mos t likely due to chronic micro-vascular ischemic change. No evidence for acute infarction. CEREBELLUM: No masses. No hemorrhage. No alteration of density. No evidence for acute infarction. EXTRAAXIAL SPACES: Mild age-related involutional change. No fluid collections. No masses. ORBITS AND GLOBE: No intra- or extraconal masses. Normal contour of globe without masses. CALVARIUM: No fracture. PARANASAL SINUSES: No fluid or mucosal thickening. SOFT TISSUES: No mass or hematoma. OTHER: No other significant finding. IMPRESSION: MILD CHRONIC CHANGES OF ATROPHY AND MICROVASCULAR ISCHEMIA. NO ACUTE PROCESS. EVIDENCE OF ACUTE STROKE: NO. TECHNICAL DOCUMENTATION: JOB ID: [id number] Quality ID # [id number]: Final reports with documentation of one or more dose reduction techniques (e.g., Au tomated exposure control, adjustment of the mA and/or kV according to patient size, use of iterative reconstruction technique) 2010 [employer]- All Rights Reserved Reading location - IP/workstation name: [email or web address]
[2020-03-15 10:49] LABS: INTERNATIONAL RATION (INR) 1.07
[2020-03-15 10:50] LABS: PARTIAL THROMBOPLASTIN TIME 28.3 SEC (23.5-35.8)
[2020-03-15] MEDS ORDERED: MAG HYDROX/AL HYDROX/SIMETH SUSP 30 ML UDCUP PO PRN (15:27)
[2020-03-15] MEDS ORDERED: LEVALBUTEROL HCL NEB 1.25 MG/3 ML AMPUL NEB PRN (15:27)
[2020-03-15] MEDS ORDERED: MAGNESIUM HYDROXIDE SUSP 30 ML UDCUP PO PRN (15:27)
[2020-03-15] MEDS ORDERED: ACETAMINOPHEN 325 MG TABLET PO PRN (15:27)
[2020-03-15] MEDS ORDERED: PROMETHAZINE HCL INJ 25 MG/1 ML VIAL IV PRN (15:27)
[2020-03-15] MEDS ORDERED: [UNRECOGNIZED DRUG - REMARK] NASL PRN (15:35)
[2020-03-15] MEDS ORDERED: GLUCAGON,HUMAN RECOMB 1 MG INJ IM PRN (15:38)
[2020-03-15] MEDS ORDERED: DEXTROSE 50%-WATER 25 GM/50 ML DISP.SYRIN IV PRN ×2 (15:38)
[2020-03-15] MEDS ORDERED: DEXTROSE 40% GEL 15 GM TUBE PO PRN ×2 (15:38)
[2020-03-15] MEDS ORDERED: FLUTICASONE NASAL SPRAY 50 MCG/SPRY 120 SPRAY/16 GM NASL PRN (15:58)
--- NOTE | 2020-03-15 16:16 | PDOC H&P ---
History of Present Illness Admission Date/PCP: 03/15/20 14:29 KARYN LEIJA MD Patient complains of: Near syncopal episode with nausea, diaphoresis and palpitations History of Present Illness: AKILAH GODFREY is a 79 year old male with dementia. His was present at the bedside for additional accuracy with medical history. He has a history of type 2 diabetes mellitus as well as coronary artery disease with recent placement of his stent. He is treated for depression, hypertension, reflux and rhinitis. He initially stated that this episode began at 630 this morning but his corrected him and it likely started closer to 830 this morning. The patient states that he walked into the kitchen. He had to manipulate several xiao for the dogs. He had put his morning pills in his mouth and was getting a glass of water. He states that when he swallowed his pills he had a sudden onset of weakness below the waist. He reports being diaphoretic, feeling warm and it felt like his heart was beating out of his chest. It was somewhat unclear but it appears that he fell to the floor either temporarily bracing himself against the sink or not. He states he fell on his side. It was not sure if he hit his head. He said that below the waist things felt like they were not connected. His legs would not move. He tried to get up several times and finally was able to walk 5 steps and rested on top of a chest freezer. He then states that he began to yell for his . When he hollered he then had to hesitate so that he could get his energy back to yell out again. He continued to mention how the bottom half of his body felt disconnected from the top half. He states that it was both legs. He does put all of his own medications in his pill dispenser. During this encounter it was realized that he was taking multiple doses of the same medication and several doses of different antihistamines. He was extremely talkative and occasionally detail seemed to get mixed up. This clearly does not follow a pattern of stroke/TIA as it was both legs. It makes more sense that he has been taking multiple medications incorrectly and this may have caused the episode. At the time of this encounter the patient had normal strength bilaterally in upper and lower extremities. Past Medical History Cardiac Medical History: Reports: Coronary Artery Disease - With recent stent, Hyperlipidema, Hypertension Pulmonary Medical History: Reports: Chronic Obstructive Pulmonary Disease (COPD) EENT Medical History: Denies: Cataracts, Eyes, Ears Neurological Medical History: Denies: Hemorrhagic CVA, Ischemic CVA Endocrine Medical History: Reports: Diabetes Mellitus Type 2 Renal/ Medical History: Denies: Chronic Kidney Disease, Nephrolithiasis Malignancy Medical History: Reports: Skin Cancer GI Medical History: Reports: Gastroesophageal Reflux Disease Musculoskeltal Medical History: Reports: Arthritis, Other - 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 Skin Medical History: Denies: Eczema, Psoriasis Psychiatric Medical History: Reports: Dementia Denies: Alcohol Dependency, Depression, Substance Abuse, Tobacco Dependency Traumatic Medical History: Reports: None Hematology: Denies: Anemia, Heparin Induced Thrombocytopenia Infectious Medical History: Reports: None Past Surgical History Past Surgical History: Reports: Cholecystectomy, Coronary Stent, Orthopedic Surgery - Cervical and thoracic spine fusion, Other - Skin cancer resection Social History Information Source: Patient, Relative Lives with: Spouse/Significant other Smoking Status: Former Smoker Electronic Cigarette use?: No Frequency of Alcohol Use: None Hx Recreational Drug Use: No Drugs: None Hx Prescription Drug Abuse: No - Advance Directive Resuscitation Status: Full Code Family History Family History: CAD, Malignancy Parental Family History Reviewed: Yes - Patient was adopted. Unable to recall details of family history. Children Family History Reviewed: Yes Sibling(s) Family History Reviewed.: NA Medication/Allergy Home Medications: Glipizide [Glucotrol Xl 5 mg Tab.er] 10 mg PO DAILY 08/09/18 Isosorbide Mononitrate [Imdur 30 mg Tablet.er] 30 mg PO QAM 08/09/18 Omeprazole 20 mg PO DAILY 08/09/18 Pravastatin Sodium [Pravachol] 20 mg PO QHS 08/09/18 Carvedilol [Coreg 3.125 mg Tablet] 3.125 mg PO Q12 #60 tablet 08/10/18 Albuterol Sulfate [Albuterol Sulfate Hfa] 2 puff IH Q6HP PRN 03/15/20 Budesonide [Rhinocort Allergy] 1 spray NASL ASDIR PRN 03/15/20 Cetirizine HCl [Zyrtec 10 mg Tablet] 10 mg PO DAILY 03/15/20 Donepezil HCl 10 mg PO QPM 03/15/20 Gabapentin [Neurontin 300 mg Capsule] 300 mg PO QHS 03/15/20 Mirtazapine [Remeron 15 mg Tablet] 7.5 mg PO QHS 03/15/20 Sertraline HCl [Zoloft 50 mg Tablet] 50 mg PO DAILY 03/15/20 Allergies/Adverse Reactions: Penicillins Allergy (Verified 03/15/20 09:53) Review of Systems Review of Systems: Review of systems helped with his 's participation Constitutional: ABSENT: chills, fatigue, fever(s) Eyes: ABSENT: visual disturbances Ears: ABSENT: hearing changes Nose, Mouth, and Throat: ABSENT: headache(s), mouth pain Cardiovascular: PRESENT: palpitations - Earlier this morning. ABSENT: chest pain, edema Respiratory: ABSENT: cough, dyspnea, hemoptysis Gastrointestinal: PRESENT: heartburn, nausea. ABSENT: abdominal pain, constipation, diarrhea, vomiting Genitourinary: PRESENT: difficulty urinating, nocturia. ABSENT: dysuria Musculoskeletal: PRESENT: other - Multiple arthritic joints Integumentary: PRESENT: diaphoresis - Earlier today. ABSENT: lesions, pruritus Neurological: PRESENT: abnormal gait, memory loss, weakness Psychiatric: PRESENT: depression. ABSENT: anxiety, hallucinations, homidical ideation, suicidal ideation Endocrine: PRESENT: flushing - Earlier today. ABSENT: cold intolerance, heat intolerance Hematologic/Lymphatic: ABSENT: easy bleeding, easy bruising Allergic/Immunologic: ABSENT: seasonal rhinorrhea Physical Exam Vital Signs: Temp Pulse Resp BP Pulse Ox 97.8 F 77 16 139/84 H 99 03/15/20 14:38 03/15/20 15:00 03/15/20 15:16 03/15/20 15:16 03/15/20 15:16 Intake & Output 03/14/20 03/15/20 03/16/20 06:59 06:59 06:59 Weight 87.9 kg General appearance: PRESENT: no acute distress, cooperative, well-developed Head exam: PRESENT: atraumatic, normocephalic Eye exam: PRESENT: conjunctiva pink, EOMI, PERRLA. ABSENT: nystagmus, scleral icterus Ear exam: PRESENT: normal external ear exam. ABSENT: bleeding, drainage Mouth exam: PRESENT: moist, tongue midline Teeth exam: PRESENT: poor dentation Neck exam: ABSENT: carotid bruit, full ROM - Limited from previous C-spine fusion, JVD, lymphadenopathy, thyromegaly, tracheostomy Respiratory exam: PRESENT: clear to auscultation darian, symmetrical, unlabored. ABSENT: accessory muscle use, prolonged expiratory phas, rales, rhonchi, tachypnea, wheezes Cardiovascular exam: PRESENT: RRR, +S1, +S2. ABSENT: bradycardia, diastolic murmur, irregular rhythm, systolic murmur Pulses: PRESENT: normal carotid pulses, normal radial pulses GI/Abdominal exam: PRESENT: normal bowel sounds, soft. ABSENT: distended, guarding, tenderness Rectal exam: PRESENT: deferred Gentrourinary exam: ABSENT: indwelling catheter Extremities exam: ABSENT: pedal edema, +1 edema Musculoskeletal exam: PRESENT: normal inspection. ABSENT: deformity, disloca tion Neurological exam: PRESENT: alert, awake, oriented to person, oriented to place, oriented to situation, CN II-XII grossly intact. ABSENT: motor sensory deficit Psychiatric exam: PRESENT: appropriate affect. ABSENT: agitated, anxious Focused psych exam: ABSENT: delusional, paranoid, restlessness Skin exam: PRESENT: dry, normal color, warm. ABSENT: rash Results Laboratory Results: 03/15/20 09:43 03/15/20 10:35 03/15/20 03/15/20 03/15/20 09:43 09:43 10:35 WBC 8.9 RBC 4.63 Hgb 13.9 Hct 39.7 MCV 86 MCH 30.1 MCHC 35.1 RDW 13.7 Plt Count 210 Seg Neutrophils % 79.3 H Sodium 132.6 L Potassium 6.4 H* 5.4 H D Chloride 103 Carbon Dioxide 24 Anion Gap 6 BUN 32 H Creatinine 1.44 H Est GFR ( Amer) 58 L Glucose 230 H Calcium 9.3 Total Bilirubin 0.5 AST 30 Alkaline Phosphatase 83 Total Protein 6.9 Albumin 4.1 03/15/20 03/15/20 09:43 09:43 Creatine Kinase 71 CK-MB (CK-2) 1.60 Troponin I < 0.012 Impressions: Head CT 03/15/20 10:20 IMPRESSION: MILD CHRONIC CHANGES OF ATROPHY AND MICROVASCULAR ISCHEMIA. NO ACUTE PROCESS. EVIDENCE OF ACUTE STROKE: NO. Assessment and Plan - Diagnosis (1) Adverse effects of medication Qualifiers: Encounter type: initial encounter Qualified Code(s): T50.905A - Adverse effect of unspecified drugs, medicaments and biological substances, initial encounter Is this a current diagnosis for this admission?: Yes Plan: In reviewing the medications his asked the patient several different times about medications that he was loading into his pillbox. It looks like he is taking 2 different doses of Aricept, possibly 3 doses of antihistamines and he has not been taking his aspirin despite recent stent. The distribution clearly was not bad of stroke or TIA. It is much more likely that the patient experienced adverse reaction to his medications. He is also somewhat dehydrated and certainly this could have contributed. I did have a discussion with his about her filling his pillbox as it is too risky for the patient to fill his own pillbox. (2) Near syncope Is this a current diagnosis for this admission?: Yes Plan: Based on the extensive discussion with the patient it sounds like he never had a syncopal episode. He did get lightheaded. He also exhibits increased BUN and creatinine and his reports that he does not drink nearly enough fluids d uring the day. The near-syncope is likely multifactorial. Vital signs are stable now the patient has no nystagmus and no lightheadedness. Incidentally, the patient's banquet food server, Dr. Mcknight, wanted the patient to wear a monitor for 2 weeks. The patient refused. We will monitor him on telemetry to look for possible arrhythmia. (3) Dehydration Is this a current diagnosis for this admission?: Yes Plan: The patient BUN was 32 and creatinine 1.44 on admission. Reviewing multiple previous laboratory studies show a normal serum creatinine with the exception of 1 test results of 1.28 in 2018. I will give additional IV fluids. It is likely that the dehydration caused an acute kidney injury which then caused hyperkalemia. (4) Acute kidney injury Is this a current diagnosis for this admission?: Yes Plan: Secondary to the dehydration. Will monitor closely. Should resolve with IV fluids. (5) Hyperkalemia Is this a current diagnosis for this admission?: Yes Plan: Secondary to the acute kidney injury. The patient received IV fluids in the emergency department and the potassium came down to 5.4. I will continue IV fluids and monitor electrolytes and renal function. (6) Coronary artery disease Qualifiers: Coronary Disease-Associated Artery/Lesion type: [place] artery [place] vs. transplanted heart: rosebud heart Associated angina: without angina Qualified Code(s): I25.10 - Atherosclerotic heart disease of [place] coronary artery without angina pectoris Is this a current diagnosis for this admission?: Yes Plan: The patient had angioplasty and stent placement several months ago. The banquet food server put him on baby aspirin according to the patient's . She did not report Plavix or other antiplatelet medications. Unfortunately the patient has not been taking his baby aspirin. It is unknown for how long. It is highly unlikely that there is plaque in the carotid arteries but I will obtain a Doppler study to be sure. The patient will also be placed back on his baby aspirin. (7) Hyperglycemia due to type 2 diabetes mellitus Qualifiers: Diabetes mellitus senior living insulin use: without termination clerk use Qualified Code(s): E11.65 - Type 2 diabetes mellitus with hyperglycemia Is this a current diagnosis for this admission?: Yes Plan: The patient normally takes glipizide 10 mg daily. I will temporarily hold this medication. I have ordered Accu-Cheks at meals and bedtime and Humalog sliding scale coverage. (8) HTN (hypertension) Qualifiers: Hypertension type: essential hypertension Qualified Code(s): I10 - Essential (primary) hypertension Is this a current diagnosis for this admission?: Yes Plan: Currently on Coreg and Imdur. Will monitor vital signs every 4 hours and monitor the patient on telemetry. (9) Hypercholesterolemia Is this a current diagnosis for this admission?: Yes Plan: I will check a lipid panel. In addition we will utilize atorvastatin during hospitalization and he will return to pravastatin as an outpatient (10) Dementia Qualifiers: Dementia type: unspecified type Dementia behavioral disturbance: without behavioral disturbance Qualified Code(s): F03.90 - Unspecified dementia without behavioral disturbance Is this a current diagnosis for this admission?: Yes Plan: We will continue the patient's Aricept. It appears that it is advanced enough that the patient is no longer safe distributing his own medications in his pillbox. 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 (12) Obstructive uropathy Is this a current diagnosis for this admission?: Yes Plan: The patient and his report that he occasionally has difficulty urinating. He does have occasional nocturia. I believe that she drank a normal amount of fluids he would have more nocturia. We will start a trial dose of Flomax and monitor closely. - Plan Summary Summary: Due to the distribution of symptoms, bilateral lower extremities, and the patient describing feelings of not being connected to anything below his waist this is most likely reaction to medications taken improperly. It does not fit a pattern for TIA or stroke. His reports that Dr. Mcknight wanted him to wear a quality assurance monitor chassis. He may have been looking for an arrhythmia. We will keep the patient on telemetry. I will get him back on his aspirin daily. His symptoms have completely resolved. I anticipate discharge tomorrow. - Time Time Spent with patient: 35 or more minutes Medications reviewed and adjusted accordingly: Yes Anticipated discharge: Home with Homehealth Within: within 48 hours
--- NOTE | 2020-03-15 16:21 | ADVANCED CARE ---
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 It took him a while but he conveyed the fact that he would not want to be in a vegetative state and likely not want to be permanently institutionalized. His did explain to him again the fact that, as I have told him, prognosis cannot be determined at that split-second. His wishes are perfectly reasonable but determination of prognosis would be made if the treatment after a catastrophic event were unsuccessful. He seemed to understand better after both explanations. With his poor insight into his medications there is risk for more severe adverse outcome. His will be discharging pills in the pillbox and this will help. At some point if his dementia worsens tomorrow with another cardiac event he may likely consider DO NOT RESUSCITATE status. He will remain a full code at this time. Care Planning Goals: To develop a disposition plan.we will avoid long-term or permanent vegetative state and permanent institutionalization Document(s) Completed: None Time Spent: 20 minutes
[2020-03-15] MEDS: INSULIN LISPRO 100 UNIT/ML 3 ML VIAL SUBCUT SCH ×2 (17:00→22:01)
[2020-03-15] MEDS: NORMAL SALINE 1000 ML 1,000 ML IV PRN (17:27)
[2020-03-15] MEDS ORDERED: (PENDING PHARMACY ID) (Donepezil Hcl [Donepezil Hcl] 10 MG) PO SCH (18:00)
[2020-03-15] MEDS ORDERED: TAMSULOSIN HCL 0.4 MG CAP.SR.24H PO SCH (18:00)
[2020-03-15] MEDS ORDERED: DONEPEZIL HCL 5 MG TABLET PO SCH (18:00)
[2020-03-15] MEDS ORDERED: GABAPENTIN 300 MG CAPSULE PO SCH (22:00)
[2020-03-15] MEDS ORDERED: ATORVASTATIN CALCIUM 20 MG TABLET PO SCH (22:00)
[2020-03-15] MEDS ORDERED: MIRTAZAPINE 15 MG TABLET PO SCH (22:00)
[2020-03-15] MEDS ORDERED: ASPIRIN 81 MG TABLET, ENT COATED PO SCH (22:00)
[2020-03-15] MEDS: HEPARIN SOD (PORCINE) 5,000 UNIT/ML 1 ML VIAL SUBCUT SCH (22:10)
[2020-03-15] MEDS: CARVEDILOL 3.125 MG TABLET PO SCH (22:10)
[2020-03-16] MEDS: NORMAL SALINE 1000 ML 1,000 ML IV PRN ×2 (01:54→09:32)
[2020-03-16 02:37] LABS: APPEARANCE,URINE CLEAR; BILIRUBIN,URINE NEGATIVE (NEGATIVE); COLOR,URINE STRAW; GLUCOSE, URINE NEGATIVE (NEGATIVE); KETONES,URINE TRACE mg/dL (NEGATIVE); LEUKOCYTE ESTERASE,URINE NEGATIVE (NEGATIVE); NITRITE,URINE NEGATIVE (NEGATIVE); PROTEIN,URINE NEGATIVE (NEGATIVE); URINE SPECIFIC GRAVITY 1.013; UROBILINOGEN,URINE NEGATIVE mg/dL (<2.0)
[2020-03-16] MEDS ORDERED: PANTOPRAZOLE SODIUM 20 MG TABLET.DR PO SCH (06:00)
[2020-03-16 06:18] LABS: ANION GAP 7 (5-19); BLOOD UREA NITROGEN 30 mg/dL (7-20); CALCIUM 9.2 mg/dL (8.4-10.2); CARBON DIOXIDE 25 mmol/L (22-30); CHLORIDE 106 mmol/L (98-107); CHOLESTEROL 136.92 mg/dL (0-200); GLUCOSE 99 mg/dL (75-110); TRIGLYCERIDES 179 mg/dL (<150)
[2020-03-16 06:29] LABS: DIRECT LDL 75 mg/dL (<100)
[2020-03-16 06:35] LABS: POTASSIUM 4.2 mmol/L (3.6-5.0); VLDL CHOLESTEROL 35.8 mg/dL (10-31)
[2020-03-16] MEDS: HEPARIN SOD (PORCINE) 5,000 UNIT/ML 1 ML VIAL SUBCUT SCH ×2 (06:38→13:11)
[2020-03-16] MEDS ORDERED: ISOSORBIDE MONONITRATE 30 MG TAB.ER.24H PO SCH (08:00)
--- NOTE | 2020-03-16 08:00 | EKG REPORT ---
SEVERITY:- NORMAL ECG - SINUS RHYTHM : Confirmed by: Leonor Vale 16-Mar-2020 08:00:07
[2020-03-16] MEDS: INSULIN LISPRO 100 UNIT/ML 3 ML VIAL SUBCUT SCH ×2 (08:51→11:24)
[2020-03-16] MEDS: CARVEDILOL 3.125 MG TABLET PO SCH (09:30)
[2020-03-16] MEDS ORDERED: SERTRALINE HCL 50 MG TABLET PO SCH (10:00)
[2020-03-16] MEDS ORDERED: CETIRIZINE 10 MG TABLET PO SCH (10:00)
--- NOTE | 2020-03-16 12:47 | RADIOLOGY REPORT (SQ) ---
EXAM DESCRIPTION: CAROTID DOPPLER IMAGES COMPLETED DATE/TIME: 03/16/2020 11:56 am REASON FOR STUDY: Near syncope, coronary atherosclerosis COMPARISON: None. TECHNIQUE: Grayscale ultrasound, Doppler velocity and spectra, and color Doppler images acquired of the extra-cranial carotid and vertebral arteries. Images stored on PACS. LIMITATIONS: None. FINDINGS: RIGHT CAROTID CCA Velocities: Within normal limits. ICA Velocities Peak systolic 156 cm/s. End diastolic 32 cm/s. Proximal ICA/CCA peak systolic ratio 1.7. There is some soft plaque. LEFT CAROTID CCA Velocities: Within normal limits. ICA Velocities Peak systolic 142 cm/s. End diastolic 37 cm/s. Proximal ICA/CCA peak systolic ratio 37. There is some soft plaque. VERTEBRAL ARTERIES: Antegrade flow. Normal waveforms. SUBCLAVIAN ARTERIES: No finding. OTHER: No other significant finding. IMPRESSION: Based on velocity measurements there is 50 to 69% stenosis in the ICA bilaterally. [place], significant plaque is not seen. COMMENT: Quality ID #[id number]: Velocity criteria are extrapolated from the diameter data as defined by t he Society of Radiologists in Ultrasound Consensus Conference. Radiology 2003: 229; 340-346. TECHNICAL DOCUMENTATION: JOB ID: [id number] 2010 [employer]- All Rights Reserved Reading location - IP/workstation name: [email or web address]
--- NOTE | 2020-03-16 13:22 | PDOC DISCHARGE SUMMARY ---
Impression - Admit/DC Date/PCP Admission Date/Primary Care Provider: 03/15/20 14:29 KARYN LEIJA MD Discharge Date: 03/16/20 - Discharge Diagnosis (1) Adverse effects of medication Is this a current diagnosis for this admission?: Yes (2) Near syncope Is this a current diagnosis for this admission?: Yes (3) Dehydration Is this a current diagnosis for this admission?: Yes (4) Acute kidney injury Is this a current diagnosis for this admission?: Yes (5) Hyperkalemia Is this a current diagnosis for this admission?: Yes (6) Coronary artery disease Is this a current diagnosis for this admission?: Yes (7) Hyperglycemia due to type 2 diabetes mellitus Is this a current diagnosis for this admission?: Yes (8) HTN (hypertension) Is this a current diagnosis for this admission?: Yes (9) Hypercholesterolemia Is this a current diagnosis for this admission?: Yes (10) Dementia Is this a current diagnosis for this admission?: Yes (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 It does not fit a pattern for TIA or stroke. His reports that Dr. Mcknight wanted him to wear a radiation monitor. He may have been looking for an arrhythmia. We will keep t he patient on telemetry. I will get him back on his aspirin daily. His symptoms have completely resolved. I anticipate discharge tomorrow. - Additional Information Resuscitation Status: Full Code Discharge Diet: Cardiac, Diabetic Discharge Activity: Activity As Tolerated, Slowly Increase Activity Referrals: KARYN LEIJA MD [Primary Care Provider] - 03/25/20 2:30 pm Prescriptions: Tamsulosin HCl [Flomax 0.4 mg Cap.sr] 0.4 mg PO QPM #15 cap.sr.24h Home Medications: Glipizide [Glucotrol Xl 5 mg Tab.er] 10 mg PO DAILY 08/09/18 Isosorbide Mononitrate [Imdur 30 mg Tablet.er] 30 mg PO QAM 08/09/18 Omeprazole 20 mg PO DAILY 08/09/18 Pravastatin Sodium [Pravachol] 20 mg PO QHS 08/09/18 Carvedilol [Coreg 3.125 mg Tablet] 3.125 mg PO Q12 #60 tablet 08/10/18 Albuterol Sulfate [Albuterol Sulfate Hfa] 2 puff IH Q6HP PRN 03/15/20 Budesonide [Rhinocort Allergy] 1 spray NASL ASDIR PRN 03/15/20 Cetirizine HCl [Zyrtec 10 mg Tablet] 10 mg PO DAILY 03/15/20 Donepezil HCl 10 mg PO QPM 03/15/20 Gabapentin [Neurontin 300 mg Capsule] 300 mg PO QHS 03/15/20 Mirtazapine [Remeron 15 mg Tablet] 7.5 mg PO QHS 03/15/20 Sertraline HCl [Zoloft 50 mg Tablet] 50 mg PO DAILY 03/15/20 Acetaminophen [Tylenol 325 mg Tablet] 650 mg PO Q4HP PRN tablet 03/16/20 Aspirin [Ecotrin 81 mg EC Tablet] 81 mg PO QHS tabec 03/16/20 Tamsulosin HCl [Flomax 0.4 mg Cap.sr] 0.4 mg PO QPM #15 cap.sr.24h 03/16/20 History of Present Illiness History of Present Illness: AKILAH GODFREY is a 79 year old male with dementia. His was present at the bedside for additional accuracy with medical history. He has a history of type 2 diabetes mellitus as well as coronary artery disease with recent placement of his stent. He is treated for depression, hypertension, reflux and rhinitis. He initially stated that this episode began at 630 this morning but his corrected him and it likely started closer to 830 this morning. The patient states that he walked into the kitchen. He had to manipulate several xiao for the dogs. He had put his morning pills in his mouth and was getting a glass of water. He states that when he swallowed his pills he had a sudden onset of weakness below the waist. He reports being diaphoretic, feeling warm and it felt like his heart was beating out of his chest. It was somewhat unclear but it appears that he fell to the floor either temporarily bracing himself against the sink or not. He states he fell on his side. It was not sure if he hit his head. He said that below the waist things felt like they were not connected. His legs would not move. He tried to get up several times and finally was able to walk 5 steps and rested on top of a chest freezer. He then states that he began to yell for his . When he hollered he then had to hesitate so that he could get his energy back to yell out again. He continued to mention how the bottom half of his body felt disconnected from the top half. He states that it was both legs. He does put all of his own medications in his pill dispenser. During this encounter it was realized that he was taking multiple doses of the same medication and several doses of different antihistamines. He was extremely talkative and occasionally detail seemed to get mixed up. This clearly does not follow a pattern of stroke/TIA as it was both legs. It makes more sense that he has been taking multiple medications incorrectly and this may have caused the episode. At the time of this encounter the patient had normal strength bilaterally in upper and lower extremities. Hospital Course Hospital Course: Uneventful hospital course. The patient symptoms had completely resolved by the time of admission. Carotid ultrasound did reveal minimal narrowing of the internal carotid arteries. No significant narrowing. Physical therapy feels the patient would benefit from home health with PT. Physical Exam Vital Signs: Temp Pulse Resp BP Pulse Ox 97.6 F 57 L 14 103/55 L 98 03/16/20 11:10 03/16/20 11:10 03/16/20 11:10 03/16/20 11:10 03/16/20 11:10 Intake & Output 03/15/20 03/16/20 03/17/20 06:59 06:59 06:59 Intake Total 1440 954 Output Total 646 Balance 794 954 Weight 83.4 kg General appearance: PRESENT: no acute distress, well-developed Head exam: PRESENT: atraumatic, normocephalic Respiratory exam: PRESENT: clear to auscultation darian, symmetrical, unlabored. ABSENT: rales, rhonchi, tachypnea, wheezes Cardiovascular exam: PRESENT: RRR, +S1, +S2 GI/Abdominal exam: PRESENT: normal bowel sounds, soft. ABSENT: tenderness Results Laboratory Results: WBC 8.9 10^3/uL (4.0-10.5) 03/15/20 09:43 RBC 4.63 10^6/uL (4.35-5.55) 03/15/20 09:43 Hgb 13.9 g/dL (13.5-17.0) 03/15/20 09:43 Hct 39.7 % (37.9-51.0) 03/15/20 09:43 MCV 86 fl (80-97) 03/15/20 09:43 MCH 30.1 pg (27.0-33.4) 03/15/20 09:43 MCHC 35.1 g/dL (32.0-36.0) 03/15/20 09:43 RDW 13.7 % (11.5-14.0) 03/15/20 09:43 Plt Count 210 10^3/uL (150-450) 03/15/20 09:43 Lymph % (Auto) 12.5 % (13-45) L 03/15/20 09:43 [place] % (Auto) 5.4 % (3-13) 03/15/20 09:43 Eos % (Auto) 2.2 % (0-6) 03/15/20 09:43 Baso % (Auto) 0.6 % (0-2) 03/15/20 09:43 Absolute Neuts (auto) 7.0 10^3/uL (1.7-8.2) 03/15/20 09:43 Absolute Lymphs (auto) 1.1 10^3/uL (0.5-4.7) 03/15/20 09:43 Absolute Monos (auto) 0.5 10^3/uL (0.1-1.4) 03/15/20 09:43 Absolute Eos (auto) 0.2 10^3/uL (0.0-0.6) 03/15/20 09:43 Absolute Basos (auto) 0.1 10^3/uL (0.0-0.2) 03/15/20 09:43 Seg Neutrophils % 79.3 % (42-78) H 03/15/20 09:43 PT 14.0 SEC (11.4-15.4) 03/15/20 09:43 INR 1.07 03/15/20 09:43 APTT 28.3 SEC (23.5-35.8) 03/15/20 09:43 Sodium 137.5 mmol/L (137-145) 03/16/20 04:26 Potassium 4.2 mmol/L (3.6-5.0) D 03/16/20 04:26 Chloride 106 mmol/L (98-107) 03/16/20 04:26 Carbon Dioxide 25 mmol/L (22-30) 03/16/20 04:26 Anion Gap 7 (5-19) 03/16/20 04:26 BUN 30 mg/dL (7-20) H 03/16/20 04:26 Creatinine 1.13 mg/dL (0.52-1.25) 03/16/20 04:26 Est GFR ( Amer) > 60 (>60) 03/16/20 04:26 Est GFR (MDRD) Non-Af > 60 (>60) 03/16/20 04:26 Glucose 99 mg/dL (75-110) 03/16/20 04:26 POC Glucose 196 mg/dL (70-110) H 03/16/20 11:12 Hemoglobin A1c % 7.2 % (4.7-6.0) H 03/16/20 04:26 Calcium 9.2 mg/dL (8.4-10.2) 03/16/20 04:26 Magnesium 2.1 mg/dL (1.6-2.3) 03/16/20 04:26 Total Bilirubin 0.5 mg/dL (0.2-1.3) 03/15/20 09:43 Direct Bilirubin 0.0 mg/dL (0.0-0.4) 03/15/20 09:43 Neonat Total Bilirubin Not Reportable 03/15/20 09:43 Neonat Direct Bilirubin Not Reportable 03/15/20 09:43 Neonat Indirect Bili Not Reportable 03/15/20 09:43 AST 30 U/L (17-59) 03/15/20 09:43 ALT 24 U/L (<50) 03/15/20 09:43 Alkaline Phosphatase 83 U/L (38-126) 03/15/20 09:43 Creatine Kinase 71 U/L (55-170) 03/15/20 09:43 CK-MB (CK-2) 1.60 ng/mL (<4.55) 03/15/20 09:43 Troponin I < 0.012 ng/mL 03/15/20 09:43 Total Protein 6.9 g/dL (6.3-8.2) 03/15/20 09:43 Albumin 4.1 g/dL (3.5-5.0) 03/15/20 09:43 Triglycerides 179 mg/dL (<150) H 03/16/20 04:26 Cholesterol 136.92 mg/dL (0-200) 03/16/20 04:26 LDL Cholesterol Direct 75 mg/dL (<100) 03/16/20 04:26 VLDL Cholesterol 35.8 mg/dL (10-31) H 03/16/20 04:26 HDL Cholesterol 34 mg/dL (>40) L 03/16/20 04:26 Urine Color STRAW 03/16/20 01:56 Urine Appearance CLEAR 03/16/20 01:56 Urine pH 5.0 (5.0-9.0) 03/16/20 01:56 Ur Specific [place] 1.013 03/16/20 01:56 Urine Protein NEGATIVE mg/dL (NEGATIVE) 03/16/20 01:56 Urine Glucose (UA) NEGATIVE mg/dL (NEGATIVE) 03/16/20 01:56 Urine Ketones TRACE mg/dL (NEGATIVE) H 03/16/20 01:56 Urine Blood NEGATIVE (NEGATIVE) 03/16/20 01:56 Urine Nitrite NEGATIVE (NEGATIVE) 03/16/20 01:56 Urine Bilirubin NEGATIVE (NEGATIVE) 03/16/20 01:56 Urine Urobilinogen NEGATIVE mg/dL (<2.0) 03/16/20 01:56 Ur Leukocyte Esterase NEGATIVE (NEGATIVE) 03/16/20 01:56 Urine WBC (Auto) 1 /HPF 03/16/20 01:56 Urine RBC (Auto) 1 /HPF 03/16/20 01:56 Urine Bacteria (Auto) TRACE /HPF 03/16/20 01:56 Squamous Epi Cells Auto <1 /HPF 03/16/20 01:56 Urine Ascorbic Acid NEGATIVE (NEGATIVE) 03/16/20 01:56 03/15/20 09:43 CK-MB (CK-2) 1.60 Troponin I < 0.012 Impressions: Head CT 03/15/20 10:20 IMPRESSION: MILD CHRONIC CHANGES OF ATROPHY AND MICROVASCULAR ISCHEMIA. NO ACUTE PROCESS. EVIDENCE OF ACUTE STROKE: NO. Carotid Doppler Study 03/16/20 06:00 IMPRESSION: Based on velocity measurements there is 50 to 69% stenosis in the ICA bilaterally. However, significant plaque is not seen. Plan Health Concerns: Patient needs a safer plan for medication administration. He cannot be setting up his own pillbox. Plan of Treatment: Discharge home. Trial of Flomax will continue for possible BPH. Follow-up with primary care provider. Goals: Proper administration of medications Time Spent: Greater than 30 Minutes Stroke Is this a Stroke Patient?: No Acute Heart Failure - Is this a Heart Failure Patient?: No
[2020-03-16 13:26] VITALS: BP 106/74
== END 2020-03-16 14:12 | disposition home health service (06) ==
LOC: ER 09:23 → INTOOBSV 14:29 → EH 14:29 → 3W 16:24
PROVIDERS: ADMIT Hospitalist; ATTEND Hospitalist
DX: T50.905A Adverse effect of unspecified drugs, medicaments and biological substances, initial encounter (principal); R55 Syncope and collapse; E86.0 Dehydration; N17.9 Acute kidney failure, unspecified; I25.10 Atherosclerotic heart disease of native coronary artery without angina pectoris; E11.65 Type 2 diabetes mellitus with hyperglycemia; E87.5 Hyperkalemia; I10 Essential (primary) hypertension; J44.9 Chronic obstructive pulmonary disease, unspecified; E78.00 Pure hypercholesterolemia, unspecified; F03.90 Unspecified dementia, unspecified severity, without behavioral disturbance, psychotic disturbance, mood disturbance, and anxiety; N13.9 Obstructive and reflux uropathy, unspecified; K21.9 Gastro-esophageal reflux disease without esophagitis; J31.0 Chronic rhinitis; R00.2 Palpitations; R26.9 Unspecified abnormalities of gait and mobility; R39.198 Other difficulties with micturition; R35.1 Nocturia; R53.1 Weakness; M13.89 Other specified arthritis, multiple sites; F32.89 Other specified depressive episodes; Z87.891 Personal history of nicotine dependence; Z98.1 Arthrodesis status; Z82.49 Family history of ischemic heart disease and other diseases of the circulatory system; Z95.5 Presence of coronary angioplasty implant and graft; Z86.73 Personal history of transient ischemic attack (TIA), and cerebral infarction without residual deficits; Z79.84 Long term (current) use of oral hypoglycemic drugs; Z79.899 Other long term (current) drug therapy; Z91.14 Patient's other noncompliance with medication regimen
CPT/HCPCS: 93005; 99285; 36415 ×2; 82553; 82962 ×2; 82550; 83735; 84132; 85025; 85610; 85730; 80048; 80053; 81001; 84484; 83036; 80061; 93880; 70450; 93010; 97116; 97163; G0378 ×3; J1644; A9270 ×14; J7030 ×2; J1815; J3490

== ENCOUNTER 2020-07-15 08:39 | Day surgery (SDC) | payer MEDICARE ==
[~2020-07-15 08:39] MED LIST: CHONDR SU A NA/HYALUR INTRAOC KIT (SURGICARE) ONE; EPINEPHRINE INJ/PF 1 MG/1 ML AMPULE ONE; KETOROLAC TROMETHAMINE 0.45% 4 DROP/0.4 ML DROPERETTE OD PRN; LIDOCAINE 1%/PHENYLEPHRINE 1.5% 1 ML VIAL ONE
[2020-07-15] MEDS ORDERED: FENTANYL CITRATE INJ/PF 100 MCG/2 ML AMPUL ONE (08:53)
[2020-07-15] MEDS ORDERED: ONDANSETRON HCL INJ/PF 4 MG/2 ML SDV ONE (08:53)
[2020-07-15] MEDS ORDERED: MIDAZOLAM 2 MG/2 ML INJ ONE (08:53)
[2020-07-15] MEDS: BESIFLOXACIN HCL 0.6% OPH SUSP 5 ML BOTTLE OD PRN ×4 (09:20→10:20)
[2020-07-15] MEDS: TROPICAMIDE 1% OPH SOLN 15 ML OD PRN ×3 (09:20→09:40)
[2020-07-15] MEDS: CYCLOPENTOLATE 0.2%/PHENYLEPHRINE 1% OPH SOLN 2 ML OD PRN ×3 (09:20→09:40)
[2020-07-15] MEDS: TETRACAINE HCL 0.5% OPH SOLN 4 ML OD PRN ×3 (09:21→10:03)
[2020-07-15] MEDS: PREDNISOLONE ACETATE 1% OPH SUSP 5 ML OD PRN ×2 (10:12→10:20)
[2020-07-15] MEDS: DORZOLAMIDE HCL 2%/TIMOLOL MALEAT 0.5% OPH SOLN 10 ML OD PRN ×2 (10:13→10:20)
--- NOTE | 2020-07-15 13:09 | Operative Report ---
Operative Report-[facility] Operative Report: DATE OF SURGERY: July 15, 2020 PREOPERATIVE DIAGNOSIS: NUCLEAR CATARACT, RIGHT EYE. POSTOPERATIVE DIAGNOSIS: NUCLEAR CATARACT, RIGHT EYE. PROCEDURE PERFORMED: PHACOEMULSIFICATION WITH POSTERIOR CHAMBER INTRAOCULAR LENS IMPLANT, RIGHT EYE. SURGEON: Johnie Arriola DO MEDICATIONS AND ANESTHESIA: Versed: IV Versed Tetracaine drops: 1 to 2 drops given as needed COMPLICATION: None INDICATIONS FOR SURGERY: Medical necessity: Best corrected visual acuity worse than 20/40 secondary to cataracts with impairment of ability to carry out needs or desired activities, blurred vision, visual distortion, reduced contrast sensitivity and/or glare with association functional impairment and supporting documentation/testing, and cataracts causing symptomatic impairment of visual functions not corrected with tolerable changes in glasses or contact lenses interfering with activities of daily life. PROCEDURE: Consent: The risks, benefits and alternatives of this procedures was discussed with the patient. The patient read and signed the consent forms, was identified and was seated in the exam chair. IOL: MX 60 E 23.0 IOL Diopters: Phacoemulsification with posterior chamber intraocular lens implant: The face was prepped with 5% povidone iodine solution, and a few drops of 5% povidone iodine solution was instilled into the inferior fornix. A non-fenestrated drape was placed over the eye and the lids were parted with the speculum. A paracentesis was made with a 15 degree blade, and 1% lidocaine MPF followed by viscoelastic was injected into the anterior chamber. A 2.4 mm metal micro- keratome was used to create a temporal clear corneal incision. A circular anterior capsulorrhexis was created, followed by hydro-dissection and hydro- delineation. The phacoemulsification hand piece was inserted and the nucleus was removed with the Phaco chop technique. The irrigation-aspiration hand piece was used to remove the residual cortex, and vacuum the posterior capsule. The capsular bag was inflated and viscoelastic and the above-mentioned IOL was injected into the eye with care to insert both leaning and trailing haptics in the capsular bag. The irrigation/aspiration hand piece was reinserted to remove residual viscoelastic from the capsular bag and anterior chamber. The corneal incision was hydrated, and anterior chamber was inflated with sterile BSS via the paracentesis site, and found to be watertight. Postop medication: 1 drop of prednisolone into operative by followed by 1 drop of Cosopt into operative eye followed by 1 drop of Besivance intraoperative by other:
== END 2020-07-15 10:52 | disposition home or self-care (01) ==
LOC: SC 08:39
PROVIDERS: ATTEND Ophthalmology
DX: H25.11 Age-related nuclear cataract, right eye (principal); E11.36 Type 2 diabetes mellitus with diabetic cataract; I25.10 Atherosclerotic heart disease of native coronary artery without angina pectoris; K21.9 Gastro-esophageal reflux disease without esophagitis; Z79.84 Long term (current) use of oral hypoglycemic drugs; I10 Essential (primary) hypertension; J44.9 Chronic obstructive pulmonary disease, unspecified
CPT/HCPCS: 66984; 82962; J2250; J3490 ×2; A9270; J0171; J2405; J3010; V2632

== ENCOUNTER 2020-08-05 06:49 | Day surgery (SDC) | payer MEDICARE ==
[~2020-08-05 06:49] MED LIST changes: -CHONDR SU A NA/HYALUR INTRAOC KIT (SURGICARE) ONE; -EPINEPHRINE INJ/PF 1 MG/1 ML AMPULE ONE; -KETOROLAC TROMETHAMINE 0.45% 4 DROP/0.4 ML DROPERETTE OD PRN; +KETOROLAC TROMETHAMINE 0.45% 4 DROP/0.4 ML DROPERETTE OS PRN; -LIDOCAINE 1%/PHENYLEPHRINE 1.5% 1 ML VIAL ONE
[2020-08-05] MEDS: TROPICAMIDE 1% OPH SOLN 15 ML OS PRN ×3 (07:15→07:35)
[2020-08-05] MEDS: TETRACAINE HCL 0.5% OPH SOLN 4 ML OS PRN ×3 (07:15→07:47)
[2020-08-05] MEDS: BESIFLOXACIN HCL 0.6% OPH SUSP 5 ML BOTTLE OS PRN ×4 (07:15→08:07)
[2020-08-05] MEDS: CYCLOPENTOLATE 0.2%/PHENYLEPHRINE 1% OPH SOLN 2 ML OS PRN ×3 (07:15→07:35)
[2020-08-05] MEDS ORDERED: MIDAZOLAM 2 MG/2 ML INJ ONE (07:32)
[2020-08-05] MEDS ORDERED: FENTANYL CITRATE INJ/PF 100 MCG/2 ML AMPUL ONE (07:32)
[2020-08-05] MEDS: EPINEPHRINE INJ/PF 1 MG/1 ML AMPULE ONE ×2 (07:55→07:57)
[2020-08-05] MEDS: LIDOCAINE 1%/PHENYLEPHRINE 1.5% 1 ML VIAL ONE ×2 (07:55→07:57)
[2020-08-05] MEDS: CHONDR SU A NA/HYALUR INTRAOC KIT (SURGICARE) ONE ×2 (07:56→07:57)
[2020-08-05] MEDS: PREDNISOLONE ACETATE 1% OPH SUSP 5 ML OS PRN ×2 (08:07)
[2020-08-05] MEDS: DORZOLAMIDE HCL 2%/TIMOLOL MALEAT 0.5% OPH SOLN 10 ML OS PRN ×2 (08:07)
--- NOTE | 2020-08-05 13:08 | Operative Report ---
Operative Report-[facility] Operative Report: DATE OF SURGERY: August 05, 2020 PREOPERATIVE DIAGNOSIS: NUCLEAR CATARACT, LEFT EYE. POSTOPERATIVE DIAGNOSIS: NUCLEAR CATARACT, LEFT EYE. PROCEDURE PERFORMED: PHACOEMULSIFICATION WITH POSTERIOR CHAMBER INTRAOCULAR LENS IMPLANT, LEFT EYE. SURGEON: Johnie Arriola DO MEDICATIONS AND ANESTHESIA: Versed: IV Versed Tetracaine drops: 1 to 2 drops given as needed COMPLICATION: None INDICATIONS FOR SURGERY: Medical necessity: Best corrected visual acuity worse than 20/40 secondary to cataracts with impairment of ability to carry out needs or desired activities, blurred vision, visual distortion, reduced contrast sensitivity and/or glare with association functional impairment and supporting documentation/testing, and cataracts causing symptomatic impairment of visual functions not corrected with tolerable changes in glasses or contact lenses interfering with activities of daily life. PROCEDURE: Consent: The risks, benefits and alternatives of this procedures was discussed with the patient. The patient read and signed the consent forms, was identified and was seated in the exam chair. IOL: MX 60 E 23.0 IOL Diopters: Phacoemulsification with posterior chamber intraocular lens implant: The face was prepped with 5% povidone iodine solution, and a few drops of 5% povidone iodine solution was instilled into the inferior fornix. A non-fenestrated drape was placed over the eye and the lids were parted with the speculum. A paracentesis was made with a 15 degree blade, and 1% lidocaine MPF followed by viscoelastic was injected into the anterior chamber. A 2.4 mm metal micro- keratome was used to create a temporal clear corneal incision. A circular anterior capsulorrhexis was created, followed by hydro-dissection and hydro- delineation. The phacoemulsification hand piece was inserted and the nucleus was removed with the Phaco chop technique. The irrigation-aspiration hand piece was used to remove the residual cortex, and vacuum the posterior capsule. The capsular bag was inflated and viscoelastic and the above-mentioned IOL was injected into the eye with care to insert both leaning and trailing haptics in the capsular bag. The irrigation/aspiration hand piece was reinserted to remove residual viscoelastic from the capsular bag and anterior chamber. The corneal incision was hydrated, and anterior chamber was inflated with sterile BSS via the paracentesis site, and found to be watertight. Postop medication:1 drop of prednisolone into operative by followed by 1 drop of Cosopt into operative eye followed by 1 drop of Besivance intraoperative by Other:
== END 2020-08-05 08:41 ==
LOC: SC 06:49
PROVIDERS: ATTEND Ophthalmology
DX: H25.12 Age-related nuclear cataract, left eye (principal); Z98.42 Cataract extraction status, left eye; E11.36 Type 2 diabetes mellitus with diabetic cataract; I25.10 Atherosclerotic heart disease of native coronary artery without angina pectoris; K21.9 Gastro-esophageal reflux disease without esophagitis; Z79.84 Long term (current) use of oral hypoglycemic drugs; I10 Essential (primary) hypertension
CPT/HCPCS: 66984; 82962; V2632; J2250; J3490 ×2; A9270; J0171; J3010